=== PATIENT | male | born 1935 | race African-American/Black ===

== ENCOUNTER 2017-02-16 17:10 | Inpatient (IN) | payer MEDICARE ==
[~2017-02-16] VITALS: Ht 180.3 cm; Wt 61.2 kg
[2017-02-16 19:30] VITALS: BP 111/76
[2017-02-16] MEDS ORDERED: NORVASC10 MG PO (21:14)
[2017-02-16] MEDS ORDERED: XALATAN 0.0052.5 ML EACH EYE (21:17)
[2017-02-16] MEDS ORDERED: LINZESS145 MCG PO (21:18)
[2017-02-16] MEDS ORDERED: PRAVASTATIN SOD10 MG PO (21:18)
--- NOTE | 2017-02-17 03:31 | NUR ---
NEW ADMIT TO DOCTOR GUZMÁN FROM [facility] EMERGENCY DEPARTMENT TO [facility]. UPON ARRIVAL TO [facility] PATIENT WAS CALM. ADMITTED FOR INCREASED CONFUSION AND HALLUCINATIONS. PATIENT LIVES AT HOME. POLICE RESPONDED TO A 911 CALL THAT A NEIGHBOR MADE. FAMILY CONTACTED PCP. PCP INSTURCTED THEM TO TAKE HIM TO ER FOR TESTNG. AT WHICH POINT, RECOMMENDATION FOR INPATIENT PSYCH EVAL AND TREATMENT. PATIENT IS RESTING IN BED QUIETLY AT THIS TIME. ORIENTED TO UNIT. ENCOURAGE TO EXPRESS NEEDS.
[2017-02-17 04:43] VITALS: BP 111/76; BMI 18.8
[2017-02-17 07:09] LABS: BASOPHILS 0.5 % (0-2); EOSINOPHILS 2.7 % (0-7); HEMATOCRIT 32.9 % (42.0-54.0); HEMOGLOBIN 10.8 g/dL (13.5-17.5); IMMATURE GRANULOCYTES 0.2 % (0-5); LYMPHOCYTES 22.9 % (15-50); MCH 31.3 pg (26.0-34.0); MCHC 32.8 g/dL (31.0-37.0); MCV 95.4 fL (80.0-100.0); MEAN PLATELET VOLUME 8.8 fL (7.4-10.4); MONOCYTES 11.6 % (2-11); NEUTROPHILS 62.1 % (40-80); PLATELET COUNT 208 10x3/uL (130-400); RBC 3.45 10x6/uL (4.20-6.10); WBC 4.1 10x3/uL (4.8-10.8)
[2017-02-17 07:17] LABS: HEMOGLOBIN A1C 5.7 % (4.8-6.0)
[2017-02-17 07:31] LABS: ALBUMIN 3.4 g/dL (3.4-5.0); ANION GAP 13.2 mmol/L (8-16); BILIRUBIN - TOTAL 0.34 mg/dL (0.2-1.3); CALCIUM 8.9 mg/dL (8.5-10.1); CHOL - HDL RATIO 2.8 ratio (2.3-4.9); CREATININE - SERUM 3.1 mg/dL (0.6-1.3); LDL-HDL RATIO 1.7 ratio (1.5-3.5); POTASSIUM - SERUM 4.2 mmol/L (3.5-5.1); PROTEIN - SERUM 7.1 g/dL (6.4-8.2); THYROID STIMULATING HORMONE 2.89 uIU/mL (0.36-3.74)
--- NOTE | 2017-02-17 11:41 | NUR ---
ORIENTED TO PERSON AND PLACE.PROPELLS SELF IN WHEELCHAIR.COMPLIANT WITH MEDS AND STAFF.WILL CONTINUE WITH PLAN OF CARE,MONITOR FOR CHANGES AND SAFETY.
[2017-02-17 16:04] VITALS: BP 132/71
[2017-02-17 19:30] VITALS: BP 138/76
--- NOTE | 2017-02-17 23:08 | NUR ---
RECEIVED IN HALLWAY. WALKING ABOUT UNIT. CONFUSED. CALM AND COOPERATIVE WITH CARE AND ASSESSMENTS. NO SIGNS OF HALLUCIANTIONS. REDIRECT AND REORIENT NEEDED. ENCOURAGE TO EXPRESS NEEDS. RESTING IN BED EYES CLOSED AT THIS TIME. CONTINUE PLAN OF CARE
--- NOTE | 2017-02-18 05:02 | PSY ---
PATIENT NAME:RUSSELL SCHULZ MEDICAL RECORD: [id number] : 31 LOCATION:[facility] ADMISSION DATE: 02/16/17 ACCOUNT: [id number] PSYCHIATRIC EVALUATION DATE OF EVALUATION: 02/17/17 IDENTIFYING DATA: This is the first [facility] admission for this 81-year-old -[place] male from [place]. The patient is single. HISTORY OF PRESENT ILLNESS: This patient was admitted on transfer from [facility] in [place]. Available history indicates that the patient had been wandering outside of his home and was apparently hallucinating. Neighbors became concerned and notified law enforcement. The patient's family then contacted the patient's primary care physician, who directed them to have the patient evaluated at the local hospital and then transferred here. Relatively little is known about the patient's past medical history aside from the above details. The patient does continue to live at home and apparently still drives. Because of worsening confusion and psychosis, the patient has been admitted. PAST MEDICAL HISTORY: Positive for hypertension and hypercholesterolemia. CURRENT MEDICATIONS: Include Linzess 72.5 mcg daily, Pravachol 20 mg at bedtime, Xalatan eye drops, and Norvasc 10 mg daily. FAMILY HISTORY: Unknown. SOCIAL HISTORY: See above. Apparently, no substance abuse issues. The patient is single. He does have some family involved in his care. ALLERGIES: None listed. MENTAL STATUS: On interview, the patient is pleasant, but confused. Mood is for the most part euthymic, although at times slightly anxious. Affect is constricted. Speech tends to be tangential. Content of thought positive for recent psychotic symptoms. The patient apparently has been exhibiting auditory hallucinations. Sensorium: The patient is oriented to person, plus the fact that he is in a hospital in [place]. Not oriented correctly as to time. Remote, intermediate, and short-term recall all show deficits. DIAGNOSTIC IMPRESSION: AXIS I: Alzheimer dementia. AXIS II: No diagnosis. AXIS III: Hypertension, hypercholesterolemia. AXIS IV: Moderate. AXIS V: 36. PLAN: 1. The patient is admitted for further medical and psychiatric workup. 2. Diet and activities as tolerated. 3. We will coordinate with family regarding aftercare plans. TRANSINT:[id number] Voice Confirmation ID: [id number] DOCUMENT ID: [id number] SHASTA GUZMÁN III, MD at 0502 CC: [id number] DICTATION DATE: 02/17/17 0943 MANAGER HOUSEKEEPING: 02/17/17 1007 ADM IN [facility] [address] [place] [address]
[2017-02-18 07:42] LABS: ANION GAP 15.7 mmol/L (8-16); CALCIUM 8.8 mg/dL (8.5-10.1); CARBON DIOXIDE 22.9 mmol/L (21.0-32.0); CREATININE - SERUM 3.5 mg/dL (0.6-1.3); POTASSIUM - SERUM 4.6 mmol/L (3.5-5.1)
--- NOTE | 2017-02-18 13:38 | NUR ---
IS ORIENTED X 3.DENIES EVER SEEING OR TALKING WITH SITTER OR ANY PERSON.STATE'S "MY 'S SISTER IS LYING ABOUT ME BECAUSE SHE IS TRYING TO GET MY HOUSE".ALSO TALKS ABOUT HIS DYING IN SEPTEMBER AND HOW HE MISSES HER.CAN WALK BUT PROPELLS SELF IN WHEELCHAIR.IS COMPLIANT WITH STAFF AND MEDS.WILL CONTINUE WITH PLAN OF CARE,MONITOR FOR CHANGES AND SAFETY.
[2017-02-18 19:09] VITALS: BP 145/60
[2017-02-18 19:21] LABS: ERYTHROCYTE SEDIMENTATION RATE 18 mm/hr (0-20)
[2017-02-18 20:30] VITALS: BP 132/60
--- NOTE | 2017-02-18 22:22 | NUR ---
RECEIVED IN BEDROOM. RESTING IN BED WITH EYES CLOSED. RESPONDS TO VOICE. CONFUSED. CALM AND COOPERATIVE WITH CARE AND ASSESSMENTS. NO SIGNS OF HALLUCINATIONS. REDIRECT AND REORIENT NEEDED. RESTING IN BED WITH EYES CLOSED AT THIS TIME. CONTINUE PLAN OF CARE
--- NOTE | 2017-02-18 23:07 | NUR ---
RECEIVED IN BEDROOM. LAYING IN BED WITH EYES CLOSED. VERY CONFUSED. VISUAL HALLUCINATIONS. SEEING SOMETHING COMING OUT OF A/C UNIT. REFUSED PM MEDS. ATTEMPTED TO START IV BUT PATIENT REFUSED. STATING "DON'T DO THAT TONIGHT!" ATTEMPT TO REDIRECT BUT UNABLE. AGITATED WITH STAFF. REDIRECT AND REORIENT CONTINUES TO REST IN BED WITH EYES CLOSED. CONTINUE PLAN OF CARE
[2017-02-19 02:04] LABS: APPEARANCE CLEAR (CLEAR); BILIRUBIN NEGATIVE (NEGATIVE); COLOR YELLOW (YELLOW); CREATININE - URINE 98.2 mg/dL (30-125); GLUCOSE NEGATIVE (NEGATIVE); KETONE NEGATIVE (NEGATIVE); NITRITE NEGATIVE (NEGATIVE); PRO/CRE RATIO URINE 0.3 mg/g; PROTEIN NEGATIVE (NEGATIVE); PROTEIN - URINE 26.1 mg/dL (0.0-11.9); SPECIFIC GRAVITY 1.015 (1.005-1.020); UROBILINOGEN NORMAL (NORMAL)
--- NOTE | 2017-02-19 06:35 | NUR ---
IV STARTED IN LEFT FOREARM. X 1 ATTEMPT.
[2017-02-19 07:16] LABS: BASOPHILS 0.4 % (0-2); EOSINOPHILS 1.5 % (0-7); HEMATOCRIT 29.8 % (42.0-54.0); HEMOGLOBIN 9.9 g/dL (13.5-17.5); IMMATURE GRANULOCYTES 0.2 % (0-5); LYMPHOCYTES 20.1 % (15-50); MCH 31.7 pg (26.0-34.0); MCHC 33.2 g/dL (31.0-37.0); MCV 95.5 fL (80.0-100.0); MONOCYTES 9.2 % (2-11); NEUTROPHILS 68.6 % (40-80); PLATELET COUNT 224 10x3/uL (130-400); RBC 3.12 10x6/uL (4.20-6.10); RDW 13.3 % (11.5-14.5); WBC 4.7 10x3/uL (4.8-10.8)
[2017-02-19 07:41] LABS: ANION GAP 15.7 mmol/L (8-16); CALCIUM 8.5 mg/dL (8.5-10.1); CARBON DIOXIDE 22.8 mmol/L (21.0-32.0); CREATININE - SERUM 3.4 mg/dL (0.6-1.3); MAGNESIUM - SERUM 1.8 mg/dL (1.8-2.4); POTASSIUM - SERUM 4.5 mmol/L (3.5-5.1)
--- NOTE | 2017-02-19 10:00 | NUR ---
ORIENTED TO NAME AND PLACE. SELF PROPELS IN WHEELCHAIR. CALM AND COOPERATIVE WITH CARE AND ASSESSMENT. IV IN LEFT FOREARM INFUSING AT 125CC/HR. MEDICATION COMPLIANT. CONTINUE PLAN OF CARE AND MONITOR FOR SAFETY.
[2017-02-19 11:35] VITALS: BMI 18.8
[2017-02-19 12:18] VITALS: BP 150/62
[2017-02-19 14:52] VITALS: Ht 180.3 cm; Wt 61.2 kg
[2017-02-19 20:35] VITALS: BP 154/49
--- NOTE | 2017-02-19 21:11 | NUR ---
RECEIVED IN HALLWAY OUTSIDE OF NURSES STATION. WALKING ABOUT UNIT. CONFUSED. CALM AND COOPERATIVE WITH CARE AND ASSESSMENTS. STATED THAT HE WANTED IV OUT OF HIS ARM. REORIENTED FOR THE NEED OF THE IV. PATIENT BEGAN PULLING ON IV. PULLING TAPE OFF. DISCONNECTED IV LINE FROM PATIENT AND SALINE LOCKED. REDIRECT AND REOIENT NEEDED. CONTINUES TO WALK AROUND IN HIS ROOM AT THIS TIME. CONTINUE PLAN OF CARE
[2017-02-20 03:09] LABS: RAPID PLASMA REAGIN Non Reactive (Non Reactive)
[2017-02-20 06:14] LABS: FOLATE (FOLIC ACID) - SERUM 13.1 ng/mL (>3.0)
[2017-02-20 07:26] LABS: BASOPHILS 0.4 % (0-2); EOSINOPHILS 1.7 % (0-7); HEMATOCRIT 29.3 % (42.0-54.0); HEMOGLOBIN 9.6 g/dL (13.5-17.5); IMMATURE GRANULOCYTES 0.2 % (0-5); LYMPHOCYTES 14.7 % (15-50); MCH 31.5 pg (26.0-34.0); MCHC 32.8 g/dL (31.0-37.0); MCV 96.1 fL (80.0-100.0); MEAN PLATELET VOLUME 8.7 fL (7.4-10.4); MONOCYTES 8.8 % (2-11); NEUTROPHILS 74.2 % (40-80); PLATELET COUNT 197 10x3/uL (130-400); RBC 3.05 10x6/uL (4.20-6.10); RDW 13.3 % (11.5-14.5); WBC 4.8 10x3/uL (4.8-10.8)
[2017-02-20 07:46] LABS: ALBUMIN 3.1 g/dL (3.4-5.0); BILIRUBIN - TOTAL 0.4 mg/dL (0.2-1.3); CALCIUM 8.6 mg/dL (8.5-10.1); CARBON DIOXIDE 21.3 mmol/L (21.0-32.0); CREATININE - SERUM 3.2 mg/dL (0.6-1.3); POTASSIUM - SERUM 4.3 mmol/L (3.5-5.1); PROTEIN - SERUM 6.5 g/dL (6.4-8.2)
--- NOTE | 2017-02-20 10:17 | PN ---
PATIENT:RUSSELL SCHULZ MEDICAL RECORD: [id number] LOCATION:[facility] ADMISSION DATE: 02/16/17 PROGRESS NOTE DATE OF SERVICE: 02/19/2017 SUBJECTIVE: No new complaint. OBJECTIVE: The patient has been intermittent in his taking medications. However, he has not been combative and has been easily redirected. On exam, the patient remains confused. Mood is euthymic. Affect is very constricted. Speech is quite terse. Content of thought is negative for overt psychosis at the moment. Sensorium shows no change. ASSESSMENT: No change in diagnosis. PLAN: 1. Maintain current medications. 2. Continue supportive therapy. TRANSINT:[id number] Voice Confirmation ID: [id number] DOCUMENT ID: [id number] SHASTA GUZMÁN III, MD at 1017 CC: [id number] DICTATION DATE: 02/19/17 1358 LIVESTOCK YARD SUPERVISOR: 02/19/17 1423 ADM IN [place] [id number] [place] [address]
[2017-02-20 10:32] VITALS: BP 141/61
[2017-02-20 20:22] VITALS: BP 150/64
--- NOTE | 2017-02-20 22:08 | NUR ---
RECEIVED IN HALLWAY OUTSIDE OF HIS ROOM. CALM AND COOPERATIVE WITH CARE AND ASSESSMENTS. REDIRECT AND REORIENT NEEDED. D/C IV PER ORDER. RESTING IN BED EYES CLOSED AT THIS TIME. CONTINUE PLAN OF CARE
[2017-02-21 06:46] LABS: BASOPHILS 0.4 % (0-2); EOSINOPHILS 1.6 % (0-7); HEMOGLOBIN 9.3 g/dL (13.5-17.5); IMMATURE GRANULOCYTES 0.2 % (0-5); LYMPHOCYTES 16.7 % (15-50); MCH 31.8 pg (26.0-34.0); MCHC 33.2 g/dL (31.0-37.0); MCV 95.9 fL (80.0-100.0); MONOCYTES 8.6 % (2-11); NEUTROPHILS 72.5 % (40-80); PLATELET COUNT 206 10x3/uL (130-400); RBC 2.92 10x6/uL (4.20-6.10); RDW 13.3 % (11.5-14.5); WBC 5.1 10x3/uL (4.8-10.8)
[2017-02-21 07:11] LABS: ANION GAP 13.7 mmol/L (8-16); CALCIUM 8.4 mg/dL (8.5-10.1); CREATININE - SERUM 3.2 mg/dL (0.6-1.3); POTASSIUM - SERUM 4.7 mmol/L (3.5-5.1)
[2017-02-21 08:00] VITALS: BP 136/70
--- NOTE | 2017-02-21 08:00 | NUR ---
Rec'd pt in d/r for b'fast, alert, some confusion noted, pleasant mood, cooperative, calm, med compliant. No s/s adverse reactions to meds, participates in group when cued. Propels self in w/c, assessed for safety concerns with none found. Cont POC including meds and group therapy.
[2017-02-21 09:17] LABS: SPE - A/G RATIO 1.3 (0.7-1.7); SPE - ALBUMIN 3.6 g/dL (2.9-4.4); SPE - ALPHA-1 GLOBULIN 0.1 g/dL (0.0-0.4); SPE - ALPHA-2 GLOBULIN 0.5 g/dL (0.4-1.0); SPE - BETA GLOBULIN 0.9 g/dL (0.7-1.3); SPE - GAMMA GLOBULIN 1.2 g/dL (0.4-1.8); SPE - M-SPIKE Not Observed g/dL (Not Observed); SPE - TOTAL PROTEIN 6.4 g/dL (6.0-8.5)
[2017-02-21 09:17] LABS: UPE RAND - ALBUMIN 19.9 % (()); UPE RAND - ALPHA 1 GLOBULIN 8.5 % (()); UPE RAND - ALPHA 2 GLOBULIN 17.6 % (()); UPE RAND - BETA GLOBULIN 33.6 % (()); UPE RAND - GAMMA GLOBULIN 20.3 % (())
--- NOTE | 2017-02-21 09:31 | PN ---
PATIENT:RUSSELL SCHULZ MEDICAL RECORD: [id number] LOCATION:[facility] ADMISSION DATE: 02/16/17 PROGRESS NOTE DATE OF SERVICE: 02/20/2017 SUBJECTIVE: No new complaint. OBJECTIVE: The patient remains pleasant and cooperative. On exam, mood is euthymic. Affect is bland. Speech is rather terse. Content of thought is negative for overt psychosis. Sensorium shows no change. ASSESSMENT: No change in diagnosis. PLAN: 1. Case management is working with family regarding placement. 2. Continue all current medications. 3. Continue supportive therapy. TRANSINT:[id number] Voice Confirmation ID: [id number] DOCUMENT ID: [id number] SHASTA GUZMÁN III, MD at 0931 CC: [id number] DICTATION DATE: 02/20/17 1212 SLICE CUTTING MACHINE OPERATOR HELPER: 02/20/17 1234 ADM IN [place] [id number] [place] [address]
[2017-02-21 20:05] VITALS: BP 153/66
--- NOTE | 2017-02-21 21:39 | NUR ---
RECEIVED IN HALLWAY. WALKING ABOUT BEFORE BEDTIME. CALM AND COOPERATIVE WITH CARE AND ASSESSMENTS. REDIRECT AND REORIENT NEEDED. ENCOURAGE TO EXPRESS NEEDS. RESTING IN BED EYES CLOSED AT THIS TIME. CONTINUE PLAN OF CARE
--- NOTE | 2017-02-22 08:07 | PN ---
PATIENT:RUSSELL SCHULZ MEDICAL RECORD: [id number] LOCATION:[facility] ADMISSION DATE: 02/16/17 PROGRESS NOTE DATE OF SERVICE: 02/21/2017 SUBJECTIVE: No new complaint. OBJECTIVE: The patient has been pleasant and cooperative. He remains quite confused. He is under good behavioral control. On exam, mood is euthymic. Affect is shallow, but bland. Speech very terse. Content of thought is negative for overt psychosis. Sensorium is unchanged. ASSESSMENT: No change in diagnosis. PLAN: 1. We will get neuropsychological testing per Dr. Rodriguez. 2. Continue current medications and supportive therapy. TRANSINT:[id number] Voice Confirmation ID: [id number] DOCUMENT ID: [id number] SHASTA GUZMÁN III, MD at 0807 CC: [id number] DICTATION DATE: 02/21/17 1155 RADIATION THERAPY TECHNOLOGIST: 02/21/17 1236 ADM IN [facility] [address] [place] [address]
--- NOTE | 2017-02-22 11:00 | NUR ---
PATIENT'S ENDY BERNARDO CALLED AND ASKED ABOUT HOW HE IS DOING. LET HER KNOW HE IS DOING WELL EXCEPT NOT WALKING, HE IS USING A W/C. SHE SAID "YOU TELL HIM THAT [place] SAID HE BETTER GET UP AND WALK OR SHE IS GOING BACK TO [place]" DID RELAY THIS MESSAGE TO PATIENT. PATIENT'S RESPONSE "OH SHE DID?" PATIENT CONTINUES TO USE W/C.
[2017-02-22 11:59] VITALS: BP 148/80
--- NOTE | 2017-02-22 20:13 | NUR ---
RECEIVED IN DAYROOM. SITTING IN WHEELCHAIR WITH PEERS AT SIDE. CALM AND COOPERATIVE [facility] CARE AND ASSESSMENT. ENCOURAGE TO EXPRESS NEEDS. PATIENT IS RESTING IN RECLINER WITH EYES CLOSED AT THIS TIME. CONTINUE PLAN OF CARE.
[2017-02-22 22:00] VITALS: BP 115/91
--- NOTE | 2017-02-23 08:08 | NUR ---
RECEIVED IN BEDROOM. SITTING ON BED WITH EYES OPEN. CONFUSED. CALM AND COOPERATIVE WITH CARE AND ASSESSMENTS. REDIRECT AND REORIENT NEEDED. ENCOURAGE TO EXPRESS NEEDS. SITTING QUIETLY IN A WHEELCHAIR IN HIS ROOM AT THIS TIME. CONTINUE PLAN OF CARE
--- NOTE | 2017-02-23 10:07 | PN ---
PATIENT:RUSSELL SCHULZ MEDICAL RECORD: [id number] LOCATION:[facility] ADMISSION DATE: 02/16/17 PROGRESS NOTE DATE OF SERVICE: 02/22/2017 SUBJECTIVE: No new complaint. OBJECTIVE: The patient is doing quite well. He is tolerating medications. He adapts well to the inpatient environment. On exam, mood is for the most part euthymic. Affect is rather bland and constricted. Speech is terse. Content of thought shows no evidence of psychosis. Sensorium shows no change. ASSESSMENT: No change in diagnosis. PLAN: 1. Maintain current medications. 2. Continue supportive therapy. TRANSINT:[id number] Voice Confirmation ID: [id number] DOCUMENT ID: [id number] SHASTA GUZMÁN III, MD at 1007 CC: [id number] DICTATION DATE: 02/22/17 1151 SENIOR TELECOMMUNICATIONS ENGINEER: 02/22/17 1211 ADM IN [place] [id number] [place] [id number]
[2017-02-23 10:47] VITALS: BP 143/58
[2017-02-23] MEDS ORDERED: TERAZOSIN HCL2 MG PO (10:51)
[2017-02-23] MEDS ORDERED: ALPHAGAN 0.2%5 ML EACH EYE (10:52)
[2017-02-23] MEDS ORDERED: TIMOPTIC XE 0.5%5 ML EACH EYE (10:52)
[2017-02-23] MEDS ORDERED: ARICEPT5 MG PO (11:07)
--- NOTE | 2017-02-23 14:05 | NUR ---
PATIENT DISCHARGING TODAY, D/C ORDER, MEDS AND H&P FAXED TO [facility].
--- NOTE | 2017-02-23 16:04 | NUR ---
CALLED PRESCRIPTIONS TO [facility] IN [place], DID GO OVER APPOINTMENTS AND MEDS WITH PATIENT AND HIS NIECE, PATIENT IS D/C'D FROM [facility], ASSISTED PATIENT TO VEHICLE.
--- NOTE | 2017-02-26 09:39 | DS ---
PATIENT:RUSSELL SCHULZ :31 MEDICAL RECORD: [id number] DISCHARGE SUMMARY ADMISSION DATE: 02/16/17 DISCHARGE DATE: 02/23/17 DATE OF ADMISSION: 02/16/2017. DATE OF DISCHARGE: 02/23/2017. HISTORY OF PRESENT ILLNESS: An 81-year-old -Mongolian male, who is a . The patient is from [place] and he was assessed at [facility] there and transferred here. The patient had been wandering outside of his home, apparently hallucinating. The patient's family called law enforcement and had him evaluated and subsequently transferred here. For further details, please see previously dictated history. COURSE IN THE HOSPITAL: The patient was assessed by Dr. Ramos. Dr. Ramos noted significantly impaired kidney function, glaucoma, hyperlipidemia, hypertension, and constipation. The patient was also assessed by Dr. Nicole with nephrology. He was hydrated and treated successfully with improvement in renal function. From a medication standpoint, the patient was treated very conservatively. He did not exhibit any problematic behavior and therefore did not require any type of sedating medication. He did undergo neuropsychological testing and scored a 20/30 on the [facility] Mental Status exam, which indicates a significant level of dementia. This will be communicated to his family. At the time of discharge, he is being started on Aricept. 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 AXIS II: No diagnosis. AXIS III: Recent dehydration -- resolved, hypertension, hypercholesterolemia. AXIS IV: Moderate. AXIS V: 40. PLAN: 1. The patient is discharged on current medications. 2. Follow up through primary care physician. The patient will also be assessed by home health. 3. Diet and activities as tolerated. TRANSINT:[id number] Voice Confirmation ID: [id number] DOCUMENT ID: [id number] SHASTA GUZMÁN III, MD at 0939 CC: [id number] DICTATION DATE: 02/23/17 1104 AERODYNAMICS TEACHER: 02/23/17 1144 DIS IN 02/23/17 [facility] [address] [place] [id number]
== END 2017-02-23 16:05 | disposition home health service (06) | DRG 57 ==
LOC: D.PSYCH 17:10
PROVIDERS: Family Medicine; Internal Medicine Nephrology; ADMIT Psychiatry & Neurology Psychiatry
DX: G30.1 Alzheimer's disease with late onset (principal); F02.81 Dementia in other diseases classified elsewhere, unspecified severity, with behavioral disturbance; N17.9 Acute kidney failure, unspecified; I12.9 Hypertensive chronic kidney disease with stage 1 through stage 4 chronic kidney disease, or unspecified chronic kidney disease; N18.9 Chronic kidney disease, unspecified; Z87.891 Personal history of nicotine dependence; E78.00 Pure hypercholesterolemia, unspecified; E78.5 Hyperlipidemia, unspecified; K59.09 Other constipation; H40.9 Unspecified glaucoma; D63.1 Anemia in chronic kidney disease; Z74.09 Other reduced mobility

== ENCOUNTER 2018-09-10 08:15 | Outpatient (CLI) | payer MEDICARE ==
[~2018-09-10] VITALS: Ht 180.3 cm; Wt 69.4 kg
[~2018-09-10 08:15] MED LIST: ALPHAGAN 0.2%5 ML EACH EYE; ARICEPT5 MG PO; LINZESS145 MCG PO; NORVASC10 MG PO; PRAVASTATIN SOD10 MG PO; TERAZOSIN HCL2 MG PO; TIMOPTIC XE 0.5%5 ML EACH EYE; XALATAN 0.0052.5 ML EACH EYE
[2018-09-10 08:48] LABS: HEMATOCRIT 27.2 % (42.0-54.0); HEMOGLOBIN 8.8 g/dL (13.5-17.5); MCH 31.3 pg (26.0-34.0); MCHC 32.4 g/dL (31.0-37.0); MCV 96.8 fL (80.0-100.0); MEAN PLATELET VOLUME 8.1 fL (7.4-10.4); NEUTROPHILS 64.3 % (40-80); PLATELET COUNT 241 10x3/uL (130-400); RBC 2.81 10x6/uL (4.20-6.10); RDW 13.8 % (11.5-14.5); WBC 4.5 10x3/uL (4.8-10.8)
[2018-09-10 08:58] LABS: ANION GAP 16.4 mmol/L (8-16); CALCIUM 8.3 mg/dL (8.5-10.1); CARBON DIOXIDE 20.8 mmol/L (21.0-32.0); CREATININE - SERUM 5.1 mg/dL (0.6-1.3); POTASSIUM - SERUM 5.2 mmol/L (3.5-5.1)
[2018-09-10 09:21] LABS: INR 1.14 (0.85-1.17); PROTIME 14.1 SECONDS (11.6-15.0)
[2018-09-10] MEDS ORDERED: ATIVAN0.5 MG PO (09:29)
[2018-09-10 09:40] VITALS: BP 164/74; Ht 180.3 cm; Wt 69.4 kg
--- NOTE | 2018-09-10 11:56 | NUR ---
DR. MOY CANCELLED SURGERY, PT RESCHEDULED.
== END 2018-09-10 11:57 | disposition home or self-care (01) ==
LOC: D.OPS 08:15 → EDSTATUS 10:00 → D.OPS 11:57
PROVIDERS: Surgery; ATTEND Internal Medicine Nephrology
DX: N18.4 Chronic kidney disease, stage 4 (severe) (principal); I63.9 Cerebral infarction, unspecified

== ENCOUNTER 2018-09-23 19:55 | Inpatient (IN) | payer MEDICARE, OTHER ==
[~2018-09-23 19:55] MED LIST changes: +ATIVAN0.5 MG PO
--- NOTE | 2018-09-23 19:59 | NUR ---
PT TRANSFERRED FROM [facility] IN [place] FOR RENAL FAILURE AND UTI. PT IS ALERT BUT NOT ORIENTED TO PLACE OR TIME. PT WILL FOLLOW COMMANDS. RESP EVEN NON LABORED.
[2018-09-23 20:58] LABS: BASOPHILS 0.1 % (0-2); EOSINOPHILS 0.1 % (0-7); HEMOGLOBIN 8.8 g/dL (13.5-17.5); IMMATURE GRANULOCYTES 0.4 % (0-5); LYMPHOCYTES 7.3 % (15-50); MCH 30.9 pg (26.0-34.0); MCHC 32.6 g/dL (31.0-37.0); MCV 94.7 fL (80.0-100.0); MEAN PLATELET VOLUME 8.8 fL (7.4-10.4); MONOCYTES 19.1 % (2-11); PLATELET COUNT 204 10x3/uL (130-400); RBC 2.85 10x6/uL (4.20-6.10); RDW 13.7 % (11.5-14.5); WBC 13.9 10x3/uL (4.8-10.8)
[2018-09-23 21:00] VITALS: BP 157/62
[2018-09-23 22:06] LABS: % SATURATION 5 % (15-55); IRON 10 ug/dl (35-150); TOTAL IRON BIND CAPACITY 195 ug/dl (260-445); UNSAT IRON BIND CAPACITY 185 ug/dl (150-375)
[2018-09-23 22:12] LABS: ALBUMIN 3.3 g/dL (3.4-5.0); ALKALINE PHOSPHATASE 60 U/L (46-116); ALT (SGPT) 15 U/L (10-68); BILIRUBIN - TOTAL 0.57 mg/dL (0.2-1.3); CALC OSMOLALITY 293 mosm/kg (275-300); CALCIUM 8.8 mg/dL (8.5-10.1); CARBON DIOXIDE 19.4 mmol/L (21.0-32.0); CHLORIDE - SERUM 108 mmol/L (98-107); CREATININE - SERUM 5.9 mg/dL (0.6-1.3); GLUCOSE 60 mg/dL (74-106); POTASSIUM - SERUM 4.4 mmol/L (3.5-5.1); PROTEIN - SERUM 7.7 g/dL (6.4-8.2); SODIUM 141 mmol/L (136-145); UREA NITROGEN 55 mg/dL (7-18); eGFR NON AFRICAN AMERICAN 10 mL/min (90-120)
[2018-09-23 22:22] LABS: FERRITIN 237 ng/mL (3-244); LDH 234 U/L (85-227)
[2018-09-23 22:26] LABS: CREATINE KINASE 261 UL (21-232)
[2018-09-23 22:34] LABS: CKMB 2.9 U/L (0.0-3.6)
--- NOTE | 2018-09-23 23:06 | NUR ---
ELIAS ZARATE APN NOTIFIED OF LACTIC ACID OF 2.7. NO NEW ORDER FOR BOLUS AND SAID MAKE SURE THAT THERE IS A U/A WITH CULTURE IN PROGRESS. IF NOT GET ONE. ALSO, CONT FLUID ORDERS.
[2018-09-24 00:09] LABS: APPEARANCE HAZY (CLEAR); BILIRUBIN NEGATIVE (NEGATIVE); COLOR YELLOW (YELLOW); GLUCOSE NEGATIVE (NEGATIVE); KETONE NEGATIVE (NEGATIVE); NITRITE POSITIVE (NEGATIVE); PH 5.5 (5.0-6.0); PROTEIN 1+ mg/dL (NEGATIVE); UROBILINOGEN NORMAL (NORMAL)
[2018-09-24 00:17] LABS: BACTERIA MODERATE /hpf (NONE SEEN); EPITHELIAL CELLS OCC /hpf (0-5); RED CELLS - URINE 0-5 /hpf (0-5); WHITE CELLS - URINE 25-50 /hpf (0-5)
[2018-09-24 00:18] LABS: AMORPHOUS SEDIMENT <1+ /lpf (NONE SEEN); HYALINE CAST RARE /lpf (NONE SEEN)
[2018-09-24 00:46] VITALS: BP 139/61; BMI 23.7
--- NOTE | 2018-09-24 00:56 | NUR ---
RECIEVED REPORT FROM ULICES ERICKSON IN ER. ARRIVED TO FLOOR ON STRETCHER. TRANSFERED TO BED BY 3 STAFF. VERY LETHARGIC AND CONFUSED. DOES NOT ANSWER QUESTIONS APPROPERATLY. IV TO RIGHT AC WITH DSG INTACT AND SL.. UNABLE TO PUT IN GOWN D/T PT SWATTING AT STAFF WHEN ATTEMPTING TO TAKE SHIRT OFF. KEEPS HIS EYES CLOSED MOST OF THE TIME. NO S/S OF DISTRESS OBSERVED. UNABLE TO VERIFY MEDICATIONS AND VERY POOR HISTORIAN. ER REPORTED HE CAME FROM HOME. WILL PASS ON TO ONCOMMING TO CALL AND SEE IF MEDICATIONS CAN BE UPDATED BY BREWERY WORKER.
[2018-09-24 04:00] VITALS: BP 131/61
[2018-09-24 06:35] LABS: BASOPHILS 0.2 % (0-2); EOSINOPHILS 0.1 % (0-7); HEMATOCRIT 25.7 % (42.0-54.0); HEMOGLOBIN 8.3 g/dL (13.5-17.5); IMMATURE GRANULOCYTES 0.3 % (0-5); MCH 30.5 pg (26.0-34.0); MCHC 32.3 g/dL (31.0-37.0); MCV 94.5 fL (80.0-100.0); MEAN PLATELET VOLUME 9.2 fL (7.4-10.4); MONOCYTES 13.9 % (2-11); NEUTROPHILS 78.5 % (40-80); PLATELET COUNT 213 10x3/uL (130-400); RBC 2.72 10x6/uL (4.20-6.10); RDW 13.8 % (11.5-14.5); WBC 11.6 10x3/uL (4.8-10.8)
[2018-09-24 07:05] LABS: ANION GAP 18.4 mmol/L (8-16); CALCIUM 8.6 mg/dL (8.5-10.1); CARBON DIOXIDE 19.7 mmol/L (21.0-32.0); CREATININE - SERUM 5.5 mg/dL (0.6-1.3); MAGNESIUM - SERUM 2.2 mg/dL (1.8-2.4); PHOSPHOROUS 4.2 mg/dL (2.5-4.9)
[2018-09-24 07:20] LABS: POTASSIUM - SERUM 5.1 mmol/L (3.5-5.1)
[2018-09-24 09:56] VITALS: BP 123/54
[2018-09-24 10:15] LABS: PATH REVIEW PERIPHERAL SMEAR REVIEWED
[2018-09-24 12:10] VITALS: BP 120/56
[2018-09-24 13:43] VITALS: BMI 23.7
--- NOTE | 2018-09-24 15:00 | NUR ---
ALERT AND ORIENTED TO SELF. SPOUSE LEFT ROOM. BEGINS TRYING TO CLIMB OUT OF BED. SITTER AT BEDSIDE. NOTIFY DIFFICULTY KEEPING PATIENT IN BED. CONTINUE PLAN OF CARE AND SAFETY PRECAUTIONS.
--- NOTE | 2018-09-24 15:35 | NUR ---
I have reviewed this patient and I concur with the Shift Assessment completed by the Licensed Practical Nurse today this shift.
--- NOTE | 2018-09-24 19:27 | NUR ---
ASSESSMENT COMPLETE, PT IN BED RESTING, RESPERATIONS EVEN AND NON LABORED ON RA. IV TO LEFT ARM WITH NS INFUSING AT 100 CC/HR, IV SITE CLEAN AND DRY. BED LOW, CL IN REACH. BED ALARM IN USE FOR PTS SAFETY.
[2018-09-24 20:00] VITALS: BP 128/54
--- NOTE | 2018-09-24 20:51 | NUR ---
HS MEDS GIVEN WITH FRESH ICE WATER, PT DENIES PAIN OR NEEDS. BED LOW, CL IN REACH, SR UP X3, ALCIRA JACK IN USE.
[2018-09-25] VITALS: BP 142/53
--- NOTE | 2018-09-25 03:04 | NUR ---
I have reviewed this patient and I concur with the Shift Assessment completed by the Licensed Practical Nurse today this shift.
[2018-09-25 04:00] VITALS: BP 141/50
--- NOTE | 2018-09-25 06:02 | NUR ---
PT ASKING FOR , SAW BARREL COATER PRINCE ACROSS THE GALLARDO AND THOUGHT IT WAS HIS . EXPLAINED THAT PRINCE WAS A BARREL COATER THAT WORKED HERE IN THE HOSPITAL, BUT I WILL SEE IF I CAN CALL HIS FOR HIM.
[2018-09-25 08:33] VITALS: BP 134/69
--- NOTE | 2018-09-25 09:42 | NUR ---
AM MEDS GIVEN AT THIS TIME. IVPB ROCEPHIN HUNG AT THIS TIME VIA LT AC. PT A/O X2, RESP EVEN AND NONLABORED ON RA. REPOSITIONED PT IN THE BED. SOCIAL SERVICES MANAGER AT BEDSIDE, PT DENIES ANY NEEDS AT THIS TIME. CALL LIGHT IN REACH, NA NAD NOTED, WILL CONTINUE PLAN OF CARE.
--- NOTE | 2018-09-25 11:30 | NUR ---
ADVERTISING SALES EXECUTIVE HELPED PT IN THE SHOWER, COMPLETE LINEN CHANGE ALSO PROVIDED.
[2018-09-25 12:55] LABS: ANION GAP 19.6 mmol/L (8-16); CALCIUM 8.5 mg/dL (8.5-10.1); CARBON DIOXIDE 17.9 mmol/L (21.0-32.0); CREATININE - SERUM 4.9 mg/dL (0.6-1.3); POTASSIUM - SERUM 4.5 mmol/L (3.5-5.1)
[2018-09-25 15:46] VITALS: BP 138/55
[2018-09-25 16:11] LABS: FOLATE (FOLIC ACID) - SERUM 13.3 ng/mL (>3.0)
--- NOTE | 2018-09-25 19:38 | NUR ---
RESUMING PATIENT CARE. PATIENT IS ALERT AND PLEASANTLY CONFUSED. HE IS RESTING COMFORTABLY IN BED. RESPIRATIONS ARE EVEN AND UNLABORED. NO S/S OF DISTRESS. NO C/O PAIN. CALL LIGHT WITHIN REACH. WILL CPOC.
[2018-09-25 20:00] VITALS: BP 143/64
[2018-09-26] VITALS: BP 128/59
[2018-09-26 04:21] LABS: BASOPHILS 0.2 % (0-2); EOSINOPHILS 2.5 % (0-7); HEMATOCRIT 26.9 % (42.0-54.0); HEMOGLOBIN 8.9 g/dL (13.5-17.5); IMMATURE GRANULOCYTES 0.1 % (0-5); LYMPHOCYTES 15.9 % (15-50); MCH 31.1 pg (26.0-34.0); MCHC 33.1 g/dL (31.0-37.0); MCV 94.1 fL (80.0-100.0); MEAN PLATELET VOLUME 8.7 fL (7.4-10.4); MONOCYTES 14.1 % (2-11); NEUTROPHILS 67.2 % (40-80); PLATELET COUNT 254 10x3/uL (130-400); RBC 2.86 10x6/uL (4.20-6.10); RDW 13.7 % (11.5-14.5); WBC 9.3 10x3/uL (4.8-10.8)
[2018-09-26 04:46] LABS: ANION GAP 17.1 mmol/L (8-16); CALCIUM 8.5 mg/dL (8.5-10.1); CARBON DIOXIDE 20.3 mmol/L (21.0-32.0); CREATININE - SERUM 4.8 mg/dL (0.6-1.3); POTASSIUM - SERUM 4.4 mmol/L (3.5-5.1)
[2018-09-26 07:04] VITALS: BP 134/43
[2018-09-26 08:13] VITALS: BP 141/61
--- NOTE | 2018-09-26 08:45 | NUR ---
IV RESTARTED TO LEFT AC WITH 22 GAUGE CATH X 2 STICKS AND FLUSHED WITH NS. LINE IS PATENT.
--- NOTE | 2018-09-26 09:35 | NUR ---
HAS GOTTEN UP OOB AND PULLED OUT IV. BED ALARM ON. STUDENT AT BS ASSISTING WITH ADLS. WILL CONT. TO MONITOR.
[2018-09-26 12:21] VITALS: BP 123/63
--- NOTE | 2018-09-26 14:17 | NUR ---
NEW IV RESTARTED TO RIGHT AC WITH 22 GAUGE CATH X 2 STICKS AND FLUSHED WITH NS. LINE IS PATENT.
[2018-09-26 16:47] VITALS: BP 140/69
[2018-09-26 20:00] VITALS: BP 145/71; BP 156/59
--- NOTE | 2018-09-26 20:00 | NUR ---
RESUMING PATIENT CARE. PATIENT IS ALERT AND PLESANTLY CONFUSED. RESPIRATIONS ARE EVEN AND UNLABORED. PATIENT IS NOT BEING COOPERATIVE PRESENTLY. PATIENT CONTINUES TO BED OUT OF BED AND IS NOT FOLLOWING REDIRECTION. PATIENT IS CURRENTING SITTING IN A RECLINER AT THE NURSES STATION. CALL LIGHT WITHIN REACH. WILL CPOC.
[2018-09-27] VITALS: BP 130/59
[2018-09-27 05:00] VITALS: BP 133/60
--- NOTE | 2018-09-27 07:45 | NUR ---
PT RESTING IN BED EYES CLOSED. BED ALARM ON AND WORKING. NO SIGN OF DISTRESS. RESPIRATIONS EVEN AND UNLABORED. BED AT LOWEST POSITION. CALL LIGHT WITHIN REACH. WILL CONTIUE TO MONITOR.
--- NOTE | 2018-09-27 07:47 | NUR ---
ASSESSMENT DONE. DENIES NEEDS.
[2018-09-27 08:28] LABS: BASOPHILS 0.3 % (0-2); EOSINOPHILS 2.9 % (0-7); HEMATOCRIT 27.8 % (42.0-54.0); IMMATURE GRANULOCYTES 0.3 % (0-5); MCH 30.4 pg (26.0-34.0); MCHC 32.4 g/dL (31.0-37.0); MCV 93.9 fL (80.0-100.0); MEAN PLATELET VOLUME 8.6 fL (7.4-10.4); MONOCYTES 8.1 % (2-11); NEUTROPHILS 75.4 % (40-80); PLATELET COUNT 258 10x3/uL (130-400); RBC 2.96 10x6/uL (4.20-6.10); RDW 13.5 % (11.5-14.5); WBC 7.7 10x3/uL (4.8-10.8)
[2018-09-27 08:30] LABS: ANION GAP 17.4 mmol/L (8-16); CALCIUM 8.4 mg/dL (8.5-10.1); CARBON DIOXIDE 20.4 mmol/L (21.0-32.0); CREATININE - SERUM 5.2 mg/dL (0.6-1.3); POTASSIUM - SERUM 4.8 mmol/L (3.5-5.1)
--- NOTE | 2018-09-27 08:54 | NUR ---
WAS CALLED FOR TELEPHONE CONSENT FOR AV FISTULA. JENIFER MOY'S NURSE AND THIS CRUISE CONSULTANT RECEIVED TELEPHONE CONSENT. PT WAS PREOP BY KASSIE ERICKSON. TO OR.
--- NOTE | 2018-09-27 09:00 | NUR ---
PREOP MEDS SENT WITH PT TO OR.
[2018-09-27 09:55] VITALS: BP 144/58
[2018-09-27 11:23] VITALS: BP 127/56
--- NOTE | 2018-09-27 12:15 | NUR ---
PT IS VERY AGGITATED, COMBATIVE AND UNCOOPERATIVE. REFUSES PO MEDS. CONTACTED AND ENCOURAGED HER TO COME SIT WITH HIM. SAID SHE WOULD TRY TO FIND SOMEONE TO BRING HER HERE. PT IS NOW A ONE ON ONE PT AND WILL CONTINUE TO HAVE A NURSE AT BEDSIDE.
[2018-09-27 12:49] VITALS: BP 127/56
--- NOTE | 2018-09-27 13:30 | NUR ---
RING, YELLOW IN COLOR AT BEDSIDE IN CUP WITH PT MASTER SONAR TECHNICIAN IT.
--- NOTE | 2018-09-27 14:23 | NUR ---
Nutrition follow-up: Diet: Renal PO intake ~60% of meals Pt s/p dialysis access surgery; now confused, combative One on one nursing now RDN following.
--- NOTE | 2018-09-27 14:30 | NUR ---
PT HAS TRIED SEVERAL TIMES TODAY TO GET OUT OF BED AND WAS ENCOURAGED TO LAY BACK DOWN. PT IS NOW SITTING UP IN BED. SEEMINGLY CALM. NO DISTRESS NOTED. RESPIRATIONS EVEN AND UNLABORED.
--- NOTE | 2018-09-27 14:37 | NUR ---
I have reviewed this patient and I concur with the Shift Assessment completed by the Licensed Practical Nurse today this shift.
--- NOTE | 2018-09-27 16:15 | NUR ---
SISTER CALLED FOR AN UPDATE ON PT STATUS. WAS NOTIFIED OF HIS BEHAVIOR TODAY. STATED THE WOULD NOT BE COMING TO SIT WITH HIM TODAY BUT THAT SHE PLANS TO BE HERE TOMORROW.
[2018-09-27 20:00] VITALS: BP 158/65
--- NOTE | 2018-09-27 21:11 | NUR ---
INITIAL ROUNDS COMPLETED AT 1900 HRS. PT CONFUSED AND BELLEGERENT. CRAWLING OUT OF THE BED. ASSISTED BACK TO BED WITH STAFF X2. ASSESSMENT COMPLETED AT 1955HRS. VSS. PT CONTINUES BE VERY CONFUSED AND BELLEGERENT. NO IV. DRESSING TO R WRIST/FA CLEAN, DRY AND INTACT. AREA SLIGHTLY SWOLLEN. PT REFUSES TO ELEVATE R ARM. LUNGS ESEENTIALLY CTA. GAIT UNSTEADY. PT CONTINUES TO CRAWL OUT OF BED FREQUENTLY. PM MEDS GIVEN OVER A 20 MINUTE PERIOD. PT SWALLOWED WITHOUT DIFFICULTY. PT OUT OF BED X 5 SINCE 2099. ASSISTED TO BR X1. VOIDED SMALL AMOUNT OF URINE. ASSISTED BACK TO BED. PT YELLING AT STAFF THAT THE WEBSTER ARE MOVING. PT BECAME MORE AGITATED WHEN INFORMED THAT THEY WERE NOT. SR UP X2, CALL LIGHT WITHIN REACH AND BED ALARM ON.
--- NOTE | 2018-09-27 21:57 | NUR ---
PT CRAWLING OUT OF BED. ORIENTED TO PERSON ONLY. ATTEMPTED TO REORIENT TO PLACE, TIME AND SITUATION . PT BECAME MORE BELLIGERENT WITH REORIENTATION. STAFF X2 TO ASSIST PT BACK TO BED. SR UP X2, CALL LIGHT WITHIN REACH AND BED ALARM ON.
--- NOTE | 2018-09-27 23:33 | NUR ---
PT BECOMING MORE AND MORE AGITATED. COMBATIVE TOWARDS STAFF. GEODON 10MG IV TO R DORSALIS GLUTEAL GIVEN. PT THEN BECOMING MORE AND MORE AGITATED AND GETTING OUT OF BED. GAIT VERY UNSTEADY ON FEET. ATTEMPTED TO REORIENT NUMEROUS TIMES WITHOUT SUCCESS. SECURITY AT BEDSIDE.
--- NOTE | 2018-09-27 23:38 | NUR ---
PT UNABLE TO MAINTAIN SAFETY. CONTINUES TO BE AGITATED AND ATTEMPTING TO GET OUT OF BED. [facility] OFFICE ASSISTANT NOTIFIED NEW ORDERS RECEIVED AND NOTED.
[2018-09-28] VITALS: BP 144/60
--- NOTE | 2018-09-28 00:35 | NUR ---
ENCLOSURE BED UNAVAILABLE AT THIS TIME. PT BEING MONITORED VERY CLOSELY. SR UP X3, CALL LIGHT WITHIN REACH AND BED ALARM ON USE.
--- NOTE | 2018-09-28 00:43 | NUR ---
PT PICKING AT BLANKETS. CONTINUES TO ATTEMPT TO GET OUT OF BED. ORIEINTED TO PERSON ONLY. PT HAVING VISUAL HALLUCINATIONS EXHIBITED BY STATING THERE IS A PACK OF DOGS ROAMING THE HALLS AND ARE TRYING TO GET THE SHOES PILED IN THE CORNER. GAIT VERY UNSTEADY. SR UP X3, CALL LIGHT WITHIN REACH, BED ALARM ON AND DOOR OPENED.
--- NOTE | 2018-09-28 01:40 | NUR ---
ATIVAN 0.5MG PO GIVEN FOR AGITATION. SR UP X3,CALL LIGHT WITHIN REACH AND BED ALARM ON.
--- NOTE | 2018-09-28 02:47 | NUR ---
PT CONFUSED, AGITATED AND ATTEMPTNG TO GET OUT OF BED. UNABLE TO REORIENT. STAFF X2 IN ROOM AT THIS TIME. ENCLOSURE BED STILL UNAVAILABLE.
[2018-09-28 04:00] VITALS: BP 101/56
[2018-09-28 04:19] LABS: BASOPHILS 0.4 % (0-2); EOSINOPHILS 2.1 % (0-7); HEMATOCRIT 25.2 % (42.0-54.0); HEMOGLOBIN 8.1 g/dL (13.5-17.5); IMMATURE GRANULOCYTES 0.2 % (0-5); LYMPHOCYTES 9.8 % (15-50); MCH 30.5 pg (26.0-34.0); MCHC 32.1 g/dL (31.0-37.0); MCV 94.7 fL (80.0-100.0); MEAN PLATELET VOLUME 8.9 fL (7.4-10.4); NEUTROPHILS 70.5 % (40-80); PLATELET COUNT 247 10x3/uL (130-400); RBC 2.66 10x6/uL (4.20-6.10); RDW 13.9 % (11.5-14.5); WBC 8.2 10x3/uL (4.8-10.8)
--- NOTE | 2018-09-28 04:23 | NUR ---
PT CONTINUES TO BE CONFUSED AND TRYING TO GET OUT OF BED. GAIT UNSTEADY. STAFF AT BEDSIDE. SR UP X3, CALL LIGHT WITHIN REACH REACH AND BED ALARM ON.
[2018-09-28 04:38] LABS: ANION GAP 21.5 mmol/L (8-16); CALCIUM 8.7 mg/dL (8.5-10.1); CARBON DIOXIDE 15.9 mmol/L (21.0-32.0); CREATININE - SERUM 5.1 mg/dL (0.6-1.3); POTASSIUM - SERUM 4.4 mmol/L (3.5-5.1)
--- NOTE | 2018-09-28 05:04 | NUR ---
ENCLOSURE BED NOW AVAILABLE. PT PLACED IN ENCLOSURE BED WITHOUT INCIDENT. GAIT VERY UNSTEADY. PT DENIED NEED FOR BATHROOM AND DECLINED OFFER FOR WATER JUST PRIOR TO PLACING IN ENCLOSURE BED. ALL SIDES ZIPPED AND CALL LIGHT WITHIN REACH.
--- NOTE | 2018-09-28 06:11 | NUR ---
PT CONTINUES TO BE CONFUSED. ATTEMPTING TO PUSH HIMSELF THROUGH THE NETTING. REFUSED AM MEDS. CONTINUES TO HAVE VISUAL HALLUCINATIONS. PT IN ENCLOSURE BED, CALL LIGHT WITHIN REACH.
--- NOTE | 2018-09-28 06:55 | NUR ---
PT IN ALCIRA BED AT THIS TIME. ALERT/CONFUSED. RESP EVEN AND NONLABORED ON RA. NO IV ACCESS NOTED. PT DENIES ANY NEEDS AT THIS TIME. CALL LIGHT IN REACH, NAD NOTED, WILL CONTINUE PLAN OF CARE.
[2018-09-28 07:37] VITALS: BP 133/60
--- NOTE | 2018-09-28 09:15 | NUR ---
AM MEDS GIVEN, ALSO GAVE 0.5MG OF ATIVAN. PT PULLING AT BED AND ITEMS INSIDE BED, STANDING UP. INSTRUCTED PT TO SIT DOWN, FEED HIM BREAKFAST, PT EAT ABOUT 25%. A/O X1, RESP EVEN AND NONALABORD ON RA. NO IV ACCESS. ZIPPED UP ALCIRA BED AND INSTRUCTED PT TO CALL IF HE NEEDED ANYTHING. CALL LIGHT IN REACH, NAD NOTED, WILL CONTINUE TO MONITOR.
--- NOTE | 2018-09-28 11:30 | NUR ---
WENT TO GIVE PT MEDICATIONS PT REFUSED TO TAKE PO MEDS AT THIS TIME. OFFERED PT SOME WATER AND REFUSED WATER. PROVIDED INCONT CARE, PT WILL NOT LEAVE HIS CLOTHES ON, COMPLETELY NAKED AT THIS TIME. WILL HAVE SALESPERSON MEN'S HATS BRING ME SOME SCRUBS TO SEE IF PT WILL LEAVE THEM ON. PT PULLING AT NETTING ON BED, AND TALKING NONSENSE. ZIPPED BED BACK UP, CALL LIGHT IN REACH, NAD NOTED, WILL CONTIUE TO MONITOR.
[2018-09-28 12:08] VITALS: BP 106/69
--- NOTE | 2018-09-28 13:12 | NUR ---
UNZIPPED ALCIRA BED, OFFERED PT HIS FOOD, PT DECLINED OFFER, ASKED PT IF HE NEEDED TO USE THE BATHROOM, PT STATED " NO, I JUST WANT TO SLEE". PT DENIES ANY NEEDS AT THIS TIME. CALL LIGHT IN REACH, ALCIRA BED ZIPPED BACK UP. WILL CONTINUE TO MONITOR.
--- NOTE | 2018-09-28 13:52 | NUR ---
PT VERY AGITATED, TELLING HIS THAT THEY NEED TO GO TO THE POLICE, TO GET THE MONEY. REMOVED ALL OF HIS CLOTHES AND REFUSES TO PUT IT BACK ON. UPSET THAT PT IS ACTING LIKE THIS. INFORMED PT'S THAT PT IS NOT STABLE ENOUGH TO GO HOME THAT HE WILL NEED TO GO TO INPATIENT [facility]. TRIED TO RE-ORIENT PT, WITH NO SUCCESS.
--- NOTE | 2018-09-28 15:05 | NUR ---
PT A LITTLE LESS AGITATED, BUT STILL PULLING AT THINGS AND WILL NOT KEEP HIS CLOTHES ON. OFFERED PT LUNCH AND AGAIN HE DECLINED TO EAT. ZIPPED BED BACK UP. CALL LIGHT IN REACH, WILL CONTINUE TO MONITOR.
--- NOTE | 2018-09-28 17:50 | NUR ---
WAS ABLE TO GET PT TO EAT ABOUT 20% OF HIS FOOD, AND GOT HIM TO TAKE A FEW SIPS OF WATER AND TEA. CLEANED PT UP FROM INCONT EPISODE. ZIPPED ALCIRA BED BACK UP. PT TRYING STAND UP IN THE BED, INSTRUCTED PT TO SIT BACK DOWN AND WAS ABLE TO GET HIM TO LAY DOWN. CALL LIGHT IN REACH. WILL CONTINUE TO MONITOR.
--- NOTE | 2018-09-28 19:03 | NUR ---
OFFERED PT SOME WATER AND ASKED HIM IF HE NEEDED TO USE THE URINAL. PT TOOK 2 SIPS OF WATER AND DENIED ANY NEED TO USE URINAL. PT CONFUSED AND PULLING AT GOWN AND SHEETS. TRIED TO RE-ORIENT PT, GOT PT TO LAY DOWN IN THE BED. CALL LIGHT IN REACH.
--- NOTE | 2018-09-28 19:30 | NUR ---
PT IN ENCLOSURE BED. CONFUSED. DISORIENTED X 3. AGITATED. CLOTHES OFF, TRYING TO GET FINGERS THROUGH MESH TO SHAKE IT. YELLING AT NURSE. PRINTED FORMS PROOFREADER ATTEMPTING TO GET HIS VITAL SIGNS AND PT IS COMBATIVE AND REFUSING. MONITOR AND MAINTAIN IN A SAFE ENVIRONMENT.
--- NOTE | 2018-09-28 19:47 | NUR ---
INITIAL ROUNDS AND ASSESSMENT COMPLETED. PT RESTING. NO DISTRESS. MONITOR AND CPOC. CALL LIGHT IN REACH.
--- NOTE | 2018-09-28 19:48 | NUR ---
INITIAL ROUNDS AND ASSESSMENT COMPLETED. PT RESTING IN ENCLOSURE BED. AWAKE/ALERT/RESTLESS. NO DISTRESS. VS PER PROTOCOL/MONITORING AND RELEASE PER PROTOCOL. CLEAN/DRY AND NO NEEDS AT THIS TIME.
--- NOTE | 2018-09-28 21:15 | NUR ---
PT ACTIVELY MOVING ABOUT IN HIS ENCLOSURE BED. VERY AGITATED. APPROACHED WITH HIS BEDTIME MEDS AND HE YELLED AND TOLD NURSE AND EXPORT SPECIALIST "YOU'RE FIRED!".PUNCHING THE SIDES OF THE BED, GRABBING THE MESH AND TRYING TO RIP IT. CRAWLING FROM ONE END OF THE BED TO ANOTHER. WILL MONITOR AND MAINTAIN IN A SAFE ENVIRONMENT.
--- NOTE | 2018-09-28 23:15 | NUR ---
PT AWAKE, CONFUSED. CLIMBING AROUND INSIDE OF ENCLOSURE BED, TRYING TO KICK OUT THE MESH PART OF THE BED. CONVERSATION IS RAMBLING AND TANGENTIAL. DISORIENTED TO PERSON/PLACE/TIME. REFUSED TO TAKE MEDS IN MED CUP. MEDS GIVEN IN ICECREAM AND HE TOOK THEM THAT WAY. TRIED TO EXPLAIN TO HIM THE PURPOSE OF THE ENCLOSURE BED FOR HIS SAFETY. PT DOES NOT LISTEN OR COMPREHEND WHAT IS BEING SAID TO HIM.
[2018-09-28 23:57] VITALS: BP 141/63
--- NOTE | 2018-09-29 01:20 | NUR ---
RESTING WITH EYES CLOSED. RESPS EVEN/NONLABORED. HAS HIS HEAD ON THE FOOT OF THE BED AND GOWN OFF. BRIED ON. DRY. NO DISTRESS. REMAINS IN ENCLOSURE BED.
--- NOTE | 2018-09-29 03:00 | NUR ---
PT RESTING IN ENCLOSURE BED WITH EYES CLOSED. HEAD AT FOOT OF BED. NO DISTRESS. MONITOR AND MAINTAIN IN A SAFE ENVIRONMENT.
--- NOTE | 2018-09-29 03:54 | NUR ---
RESTING IN ENCLOSURE BED WITH NO DISTRESS. HAS REMOVED ALL OF HIS CLOTHES AND IS LAYING AT THE FOOT OF THE BED. MONITOR AND CPOC.
[2018-09-29 05:38] VITALS: BP 143/54
--- NOTE | 2018-09-29 07:17 | NUR ---
PT RESTING COMFORTABLY IN BED, WITH EYES CLOSED, EASILY AROUSES TO VOICE, OFFERED PT WATER, PT DECLINED OFFER FOR WATER, DENIES ANY NEEDS AT THIS TIME. SEEMS CONTENT AT THIS TIME. CALL LIGHT IN REACH, NAD NOTED, WILL CONTINUE PLAN OF CARE.
[2018-09-29 08:45] VITALS: BP 146/64
[2018-09-29 08:51] VITALS: BP 146/64
--- NOTE | 2018-09-29 10:00 | NUR ---
AM MEDS GIVEN MIXED WITH SHERBERT, CLEANED PT UP FROM INCONT EPISODE, PROVIDED SPONGE BATH, ALSO FEED PT HIS BREAKFAST, PT ATE ABOUT 50% OF HIS BREAKFAST, DENIES ANY AT THIS TIME. CALL LIGHT IN REACH, ALCIRA PARRA, NAD NOTED, WILL CONTINUE TO MONITOR.
--- NOTE | 2018-09-29 11:16 | NUR ---
PT RESTING COMFORTABLY IN BED, DENIES ANY NEEDS AT THIS TIME. OFFERED HIM SOMETHING TO DRINK, PT DECLINED OFFERED. CALL LIGHT IN REACH. NAD NOTED, WILL CONTINUE TO MONITOR.
[2018-09-29 12:07] VITALS: BP 142/60
--- NOTE | 2018-09-29 12:15 | CN ---
PATIENT NAME:RUSSELL SCHULZ MEDICAL RECORD: [id number] : 31 LOCATION:[facility].2124 ADMIT DATE: 09/23/18 ACCOUNT: [id number] CONSULTING PHYSICIAN: RICHARD BOYD MD REFERRING PHYSICIAN: VICTOR MANUEL CASTANEDA DO DATE OF CONSULTATION: 09/28/2018 IDENTIFYING DATA: The patient is 82 years old and he was admitted to the hospital on a voluntary basis secondary to confusion. The patient was transferred to us from the hospital in [place], where he was a patient. He had a urinary tract infection, was dehydrated and was referred to us along with the confusion. He has a very complicated medical history that includes hypertension, glaucoma, chronic kidney disease, and irritable bowel syndrome. In fact, he was scheduled to have a fistula placed for dialysis. The patient has now shown some improvement and was scheduled for discharge. Unfortunately, he has become quite agitated and aggressive with staff. He has little or no recollection of this. MENTAL STATUS EXAMINATION: The patient is sleepy, but arousable. He is oriented to person only. The remainder of the mental status exam was not possible. ASSESSMENT: Senile dementia of the Alzheimer's type with behavioral disturbances. PLAN: The patient is appropriate for management on the behavioral unit once he is medically stabilized. In the interim, I would treat him with kenny Giraldo. TRANSINT:[id number] Voice Confirmation ID: [id number] DOCUMENT ID: [id number] RICHARD BOYD MD at 1215 CC: [id number] DICTATION DATE: 09/28/18 1228 CARDROOM HAND: 09/28/18 1337 ADM IN [facility] [address] [place] [address]
[2018-09-29] MEDS ORDERED: SODIUM BICARBO650 MG PO (12:52)
[2018-09-29] MEDS ORDERED: SEROQUEL25 MG PO (12:52)
[2018-09-29] MEDS ORDERED: GEODON20 M1 IM (12:52)
[2018-09-29] MEDS ORDERED: PROTONIX40 MG PO (12:52)
--- NOTE | 2018-09-29 16:05 | NUR ---
PT UNABLE TO SIGN DISCHARGE PAPERS, PT TAKEN DOWN TO NURSING HOME BY JULIANE ERICKSON. WITH ALL BELONGINS, NAD NOTED.
--- NOTE | 2018-09-30 08:34 | MORECARE ---
CASE MANAGEMENT DISCHARGE SUMMARY PATIENT: RUSSELL SCHULZ UNIT: [id number] ADM DATE: 09/23/18 AGE: 82 : 33 SEX: M ROOM/BED: D.2123 AUTHOR: GRECIA DAVID PHYSICIAN: REFERRING PHYSICIAN: VICTOR MANUEL CASTANEDA DO DATE OF SERVICE: 09/30/18 Discharge Plan Patient Name: RUSSELL SCHULZ [facility] [facility] 1935 Planned Disposition: Inpatient Psych Facility Anticipated Discharge Date: 09/29/18 Discharge Date: 09/29/2018 Expected LOS: 6 Initial Reviewer: [email or web address] Initial Review Date: 09/30/2018 Generated: 09/30/18 9:34 am Comments DCP- Discharge Planning Updated by [email or web address]: Tessa Mccoy on 09/27/18 10:[address] 0900 CM VISITED THE BEDSIDE THIS AM. NO ONE WAS LOCATED AT THE BEDSIDE. PATIENT FOR OR TODAY. CM WILL FOLLOWUP. PATIENT W/ SEVERE DEMENTIA. Patient Name: RUSSELL SCHULZ Page [phone] at 0834 All edits/amendments must be made on the electronic document DICTATION DATE: 09/30/18833 DOOR PULLER: MANSI 09/30/18833 RPT#: [id number] DC DATE:09/29/18 STATUS: DIS IN [facility] [address] [place] [address] END OF REPORT
--- NOTE | 2018-10-04 15:16 | OP ---
PATIENT NAME: RUSSELL SCHULZ MEDICAL RECORD: [id number] :31 LOCATION:D. D.4 ADMISSION DATE:09/23/18 SURGEON: KHANH MOY MD DATE OF OPERATION: 09/27/2018 REFERRING PHYSICIAN: Dr. Barahona. PREOPERATIVE DIAGNOSIS: Chronic kidney disease IV. OPERATION PERFORMED: Creation of a right radiocephalic arteriovenous fistula. SURGEON: Khanh Moy MD ANESTHESIA: TIVA plus regional nerve block per TRAINING COORDINATOR. PREOPERATIVE NOTE: This gentleman is an 82-year-old white male patient with severe renal insufficiency is thought to likely require dialysis and he had been referred to me for creation of vascular access and actually was scheduled for procedure to be done next week. He was admitted to the hospital on this occasion with dehydration and general medical deterioration, but he has still not thought to require dialysis at this time, but I am going to go ahead and take him to the operating room today to get his access operation done during this hospitalization rather than bringing him back for another outpatient procedure. With the patient under regional block anesthesia and TIVA, he was prepped and draped in a sterile manner. The right cephalic vein at the wrist stood out beautifully preop and especially so after the regional nerve block was administered. The radial artery pulse was bounding and I felt that despite the patient's advanced age, he was actually a reasonable candidate for a radiocephalic wrist fistula and proceeded with that. A longitudinal incision was made in the radial artery and cephalic vein exposed and dissected from the surrounding tissues. Branches and tributaries were divided between ligatures of Vicryl, Hemoclips, and with the use of electrocautery. There was an unusually brisk amount of bleeding from the subcutaneous tissues with the initial incision. However, this did stop with appropriate use of electrocautery and compression with dry gauze and I was able to go on with the procedure without continued coagulopathic bleeding. The vein was ligated and divided distally and then shortened and beveled and flushed with heparinized saline and hydrostatically dilated and treated repeatedly with topical papaverine. This made a very nice 5 mm vein. The artery was controlled and occluded as needed with doubly looped Silastic tapes. An arteriotomy approximately 6 mm in length was made and the artery then flushed with heparinized saline. An end-to-side, end of vein to side of artery, anastomosis was then performed with running 7-0 Prolene. When completed and the arterial loops were released, excellent flow developed immediately within the new fistula and there was no bleeding from the suture line. The wound was irrigated with saline and Surgicel powder applied to the wound. The wound was then closed with interrupted inverted 3-0 Vicryl and then running intracuticular 4-0 Monocryl and Dermabond glue. The incision was dressed with Maxorb Ag, Tegaderm, and Cavilon skin prep. He was awakened and returned to the recovery room. Blood loss during the operation was insignificant and unreplaced. Sponges, instruments, and needles were accounted for. No drain was used and no surgical OPERATIVE REPORT [id number] RUSSELL SCHULZ specimen was provided for histopathology. PLAN: The patient will be discharged from the hospital whenever he meets criteria per his primary care physician and nephrology. I will see him back in my office probably in about 2 weeks for a wound check. TRANSINT:[id number] Voice Confirmation ID: [id number] DOCUMENT ID: [id number] KHANH MOY MD at 1516 CC: HELADIO BARAHONA MD [id number] DICTATION DATE: 09/27/18 1117 INTERNAL GRINDER SET UP OPERATOR: 09/27/18 1138 DIS IN 09/29/18 [facility] [address] [place] [address]
== END 2018-09-29 16:06 | DRG 853 ==
LOC: D.ER 19:55 → D.M2 20:50
PROVIDERS: Family Medicine; Internal Medicine; Surgery; ADMIT Family Medicine; ATTEND Family Medicine
PROC: 031B0JF Bypass Right Radial Artery to Lower Arm Vein with Synthetic Substitute, Open Approach (ICD-10-PCS; principal; 2018-09-27 12:00)
DX: A41.9 Sepsis, unspecified organism (principal); G93.41 Metabolic encephalopathy; N17.9 Acute kidney failure, unspecified; N39.0 Urinary tract infection, site not specified; N18.4 Chronic kidney disease, stage 4 (severe); I12.9 Hypertensive chronic kidney disease with stage 1 through stage 4 chronic kidney disease, or unspecified chronic kidney disease; D63.1 Anemia in chronic kidney disease; E86.0 Dehydration; E78.5 Hyperlipidemia, unspecified; G30.9 Alzheimer's disease, unspecified; F02.80 Dementia in other diseases classified elsewhere, unspecified severity, without behavioral disturbance, psychotic disturbance, mood disturbance, and anxiety; K59.00 Constipation, unspecified; H40.9 Unspecified glaucoma

== ENCOUNTER 2018-09-29 15:01 | Inpatient (IN) | payer MEDICARE ==
[~2018-09-29] VITALS: Ht 185.4 cm; Wt 61.0 kg
[~2018-09-29 15:01] MED LIST changes: +GEODON20 M1 IM; +PROTONIX40 MG PO; +SEROQUEL25 MG PO; +SODIUM BICARBO650 MG PO
[2018-09-29 18:08] VITALS: BP 143/56
--- NOTE | 2018-09-29 18:58 | NUR ---
PATIENT ARRIVED ONTO UNIT PER MED 2 STAFF AT 1605 IN A WHEELCHAIR. PATIENT DOES USE CRUTCHES TO AMBULATE. LABEL. PATIENT HAS ALTER THOUGHT PREOCESS. PT DOES HAS DEMENTIA. VERBAL CONSENT GIVEN BY GUARDIAN AT TIME. PATIENT GUARDIAN AND SPOUSE NOTIFIED OF PATIENT COMING TO UNIT. CODEWORD: LAURA. CODE STATUS: FULL CODE. PATIENT VITAL SIGNS: B/P-143/56, P-67,R-20, T-98.4,99%. WEIGHT-131.4. PATIENT IS IN WHEELCHAIR WITH CHAIR ALARM IN PLACE. PATIENT HAS SHUNT IN THE RIGHT WRIST. THRILL AND BRUIT PRESENT. AREA IN RED AND SWOLLEN. AREA IS NOT HOT TO THE TOUCH. PATIENT HAS NO BREAKDOWN NOTED TO SKIN. BILATERAL BOWEL SOUNDS NOTED. NO EDEMA NOTED TO BILATERAL ANKLES.
[2018-09-29 20:56] VITALS: BP 145/50
--- NOTE | 2018-09-30 00:42 | NUR ---
RECEIVED IN DAYROOM. SITTING IN A WHEELCHAIR WITH PEERS AT HIS SIDE. VERY CONFUSED. CALM AND COOPERATIVE WITH CARE AND ASSESSMENT. REDIRECT AND REOREINT NEEDED. RESTING IN BED WITH EYES CLOSED AT THIS TIME. CONTINUE PLAN OF CARE
[2018-09-30 06:59] LABS: BASOPHILS 0.2 % (0-2); EOSINOPHILS 2.3 % (0-7); HEMATOCRIT 25.4 % (42.0-54.0); HEMOGLOBIN 8.3 g/dL (13.5-17.5); IMMATURE GRANULOCYTES 0.2 % (0-5); LYMPHOCYTES 14.2 % (15-50); MCH 30.1 pg (26.0-34.0); MCHC 32.7 g/dL (31.0-37.0); MEAN PLATELET VOLUME 8.6 fL (7.4-10.4); MONOCYTES 13.6 % (2-11); NEUTROPHILS 69.5 % (40-80); RBC 2.76 10x6/uL (4.20-6.10); RDW 13.8 % (11.5-14.5); WBC 8.2 10x3/uL (4.8-10.8)
[2018-09-30 07:00] VITALS: BP 130/51
[2018-09-30 07:31] LABS: PLATELET COUNT 340 10x3/uL (130-400)
[2018-09-30 07:39] VITALS: BMI 18.3
[2018-09-30 07:52] LABS: ALBUMIN 2.9 g/dL (3.4-5.0); ANION GAP 21.3 mmol/L (8-16); BILIRUBIN - TOTAL 0.3 mg/dL (0.2-1.3); CHOL - HDL RATIO 2.3 ratio (2.3-4.9); CREATININE - SERUM 5.3 mg/dL (0.6-1.3); LDL-HDL RATIO 1.2 ratio (1.5-3.5); POTASSIUM - SERUM 4.3 mmol/L (3.5-5.1); PROTEIN - SERUM 7.6 g/dL (6.4-8.2); THYROID STIMULATING HORMONE 1.98 uIU/mL (0.36-3.74)
--- NOTE | 2018-09-30 08:30 | NUR ---
AWAKE AND ORIENTED TO SELF ONLY, WITH CONFUSION NOTED. CALM AND COOPERATIVE WITH CARE AND ASSESSMENT. COMPLIANT WITH MEDICATIONS. REDIRECT AND REORIENT NEEDED. CONTINUE POC.
[2018-09-30 09:47] VITALS: Ht 185.4 cm; Wt 61.0 kg
[2018-09-30 16:10] LABS: APPEARANCE CLEAR (CLEAR); BILIRUBIN NEGATIVE (NEGATIVE); COLOR YELLOW (YELLOW); GLUCOSE NEGATIVE (NEGATIVE); KETONE NEGATIVE (NEGATIVE); NITRITE NEGATIVE (NEGATIVE); PROTEIN TRACE mg/dL (NEGATIVE); UROBILINOGEN NORMAL (NORMAL)
[2018-09-30 16:12] LABS: BACTERIA FEW /hpf (NONE SEEN); RED CELLS - URINE 0-5 /hpf (0-5); WHITE CELLS - URINE OCC /hpf (0-5)
--- NOTE | 2018-09-30 19:46 | NUR ---
RECEIVED IN DAYROOM. SITTING WITH PEERS AND STAFF AT HIS SIDE. CALM AND COOPERATIVE WITH CARE AND ASSESSMENT. VERY CONFUSED. REDIRECT AND REORIENT NEEDED. CONTINUES TO SIT QUIELY. CONTINUE PLAN OF CARE
[2018-09-30 20:00] VITALS: BP 134/64
[2018-10-01 08:30] VITALS: BP 117/61
--- NOTE | 2018-10-01 11:51 | NUR ---
RECEIVED PATIENT IN DAYROOM, SITTING IN W/C, CALM, COOPERATIVE, CONFUSED, PLEASANT. MEDS ADMIN PER MED NURSE. COOPERATIVE WITH STAFF AND GROUP ACTIVITY. CONT POC INCLUDING MEDICATIONS AND GROUP THERAPY DIRECTED.
--- NOTE | 2018-10-01 13:17 | PSY ---
PATIENT NAME:RUSSELL SCHULZ MEDICAL RECORD: [id number] : 31 LOCATION:[facility] ADMISSION DATE: 09/29/18 ACCOUNT: [id number] PSYCHIATRIC EVALUATION DATE OF EVALUATION: 09/30/18 PSYCHIATRIC EVALUATION IDENTIFYING DATA: The patient is 82 years old and he is admitted to the hospital on a voluntary basis. CHIEF COMPLAINT: Confusion. HISTORY OF PRESENT ILLNESS: The patient was recently admitted to the hospital secondary to confusion. I was asked to see him while he was hospitalized here and he had pulled his IV out and was so agitated that he required a [place] bed to contain him. He had urinary tract infection and was dehydrated. This had been treated and is being treated, but his confusion has not gotten any better. He is only oriented to person. He is very confused. It is unknown what his baseline level was, but I am certain he had dementia when he arrived here. PAST MEDICAL HISTORY: Significant for hypertension, glaucoma, chronic kidney disease, and irritable bowel syndrome. PAST PSYCHIATRIC HISTORY: Significant for dementia, although I do not know when or how that was diagnosed. FAMILY HISTORY: Unknown. ALLERGIES: No known drug allergies. CURRENT MEDICATIONS: Include Norvasc, Protonix, Linzess, Aricept, Seroquel, Hytrin, and Pravachol. SOCIAL HISTORY: The patient is . It is unknown if he has children. He denies that he has a history of drug or alcohol abuse, but I do not think he is answering questions adequately. He is unable to tell me about his longitudinal history. MENTAL STATUS EXAMINATION: The patient is awake, alert, and oriented to person only. His mood is flat. His affect is constricted. Thought processes are very disorganized and although formal memory, concentration, and abstraction testing is not possible, they are all inferred to be severely impaired. He does deny that he would seek to harm himself or others. He denies psychotic symptoms, but I do not think he understood the question. ASSETS: Stable living environment. LIABILITIES: Limited insight. DIAGNOSTIC IMPRESSION: AXIS I: Senile dementia of the Alzheimer's type with behavioral disturbances. AXIS II: None. AXIS III: Hypertension, chronic renal disease, dehydration, and urinary tract infection. AXIS IV: Moderate. AXIS V: Global assessment of functioning is 25. PLAN: At this time, the patient is admitted to the hospital secondary to agitated behavior associated with a dementing illness. He will be comprehensively evaluated from both medical, psychological, and social standpoint. His long-term prognosis is guarded. TRANSINT:[id number] Voice Confirmation ID: [id number] DOCUMENT ID: [id number] RICHARD BOYD MD at 1317 CC: [id number] DICTATION DATE: 09/30/18 1615 FINISHING MACHINE OPERATOR AUTOMATIC: 09/30/18 1840 ADM IN [place] [id number] [place] [address]
[2018-10-01 20:00] VITALS: BP 120/52
--- NOTE | 2018-10-01 20:56 | NUR ---
RECEIVED IN DINING AREA. RESTLESS AT TIMES. CALM AND COOPERATIVE WITH CARE AND ASSESSMENT. CONFUSED. REDIRECT AND REORIENT NEEDED. SITTING QUIETLY IN DAYROOM AT THIS TIME. CONTINUE PLAN OF CARE
--- NOTE | 2018-10-02 09:00 | NUR ---
AWAKE AND ALERT TO SELF ONLY, WITH CONFUSION NOTED. CALM AND COOPERATIVE WITH CARE AND ASSESSMENT. NO AGGRESSION NOTED. REDIRECT AND REORIENT NEEDED. MEDICATION COMPLIANT. WILL CONTINUE PLAN OF CARE.
[2018-10-02 10:16] VITALS: BP 125/55
--- NOTE | 2018-10-02 20:49 | NUR ---
PATIENT IS CONFUSED, ORIENTED TO SELF. HAS TO BE DIRECTED. FISTULA TO RIGHT LOWER ARM IS SWOLLEN, RED, HOWEVER HAS IMPROVED BUT DR. MOY HAS BEEN CONSULTED. COMPLIANT WITH MEDS. NO ADVERSE REACTION NOTED. WILL FOLLOW POC
[2018-10-02 21:07] VITALS: BP 122/64
--- NOTE | 2018-10-03 08:09 | NUR ---
B) The patient is in bed this am, he is confused, he is having a difficult time expressing the words he wants to say. He is quiet. He is able to self propel in a w/c. He has a fistula in his right arm that is new and it has some swelling noted. At this time he is not receiving dialysis. I) Provide prescribed meds. R) The patient has poor insight into his situation. P) Continue POC.
--- NOTE | 2018-10-03 15:47 | NUR ---
Nutrition Follow Up: Chart reviewed Diet: AHA; Boost TID PO Intake: 78% meal avg BM: 10/01/18 Meds and labs reviewed Rec continue current diet, supplement regimen. RD following.
[2018-10-03 20:43] VITALS: BP 130/70
--- NOTE | 2018-10-03 22:12 | NUR ---
PATIENT IS CONFUSED, CAN MAKE NEEDS KNOWN, COMPLIANT WITH MEDS, AMBULATES WITH THE USE OF A WHEEL CHAIR MOST OF THE TIME. HAS TO BE TOLD ONE THING OVER AND OVER AGAIN. WILL FOLLOW POC
--- NOTE | 2018-10-03 23:59 | NUR ---
RECIEVED UP AMBULATING IN HALLWAY. ALERT AND CONFUSED. ABLE TO REDIRECT TO BED. NO S/S OF DISTRESS OBSERVED.REPORT GIVEN BY DEMIAN ERICKSON.
--- NOTE | 2018-10-04 07:18 | NUR ---
B) The patient is awake, he ambulates with a walker. He is confused as he knows his name only. He has poor insight into his situation. He is hyngry often. I) Provide prescribed meds. R) The patient is compliant with meds and unit milieu. P) Continue POC.
[2018-10-04 09:40] VITALS: BP 105/68
[2018-10-04 20:28] VITALS: BP 123/50
--- NOTE | 2018-10-05 03:34 | NUR ---
B.) Patient is alert and oriented to person only. He ambulates with his walker. I.) Encouraged compliance with medications. R.) Compliant with PM medications. P.) continue POC.
[2018-10-05 09:29] VITALS: BP 117/51
--- NOTE | 2018-10-05 11:54 | PN ---
PATIENT:RUSSELL SCHULZ MEDICAL RECORD: [id number] LOCATION:[facility] ADMISSION DATE: 09/29/18 PROGRESS NOTE DATE OF SERVICE: 10/04/2018 SUBJECTIVE: The patient's case was discussed with staff. He has no new complaint. OBJECTIVE: The patient denies intent to harm himself or others. He is tolerating his medicines well. He is eating adequately. He is sleeping perfectly fine. ASSESSMENT: No change in diagnoses. PLAN: The patient will be maintained on current medications with the exception of the Aricept, which will be increased to 10 mg at bedtime. Aricept is being used to treat his underlying cognitive impairment. He will be monitored for clinical changes associated with its use. TRANSINT:[id number] Voice Confirmation ID: [id number] DOCUMENT ID: [id number] RICHARD BOYD MD at 1154 CC: [id number] DICTATION DATE: 10/04/18 1620 TWISTER OPERATOR: 10/04/18 3579 ADM IN [place] [id number] [place] [id number]
--- NOTE | 2018-10-05 21:30 | NUR ---
PATIENT PUT PILLS IN MOUTH THEN SPIT OUT 3 OF THEM. WASTED THEM IN SHARPS WITH DRE PAIGE.
--- NOTE | 2018-10-05 21:47 | NUR ---
PATIENT SPIT OUT 3 OF HIS MEDICATIONS. WASTE WITH NURSE PAIGE.
[2018-10-05 22:04] VITALS: BP 123/43
--- NOTE | 2018-10-06 00:10 | NUR ---
B.) Patient is pleasant and alert. He ambulates by hiself. I.) Provide PM Medications. R.) Patient refused half of his medications. P.) Continue Plan of Care.
--- NOTE | 2018-10-06 06:29 | NUR ---
PATIENT REFUSED FSBS AND LINZESS 72 MCG AND PROTONIX 40MG.
[2018-10-06 07:00] VITALS: BP 144/61
--- NOTE | 2018-10-06 08:44 | NUR ---
REFUSING TO GET OUT OF BED,ARGUMENTIVE,WILL NOT REDIRECT.HALDOL 2MG AND ATIVAN 0.5MG IM TO RIGHT HIP GIVEN.
--- NOTE | 2018-10-06 09:30 | NUR ---
PT. RESTING QUIETLY IN W/C, ALERT, CALM, BREAKFAST COMPLETE. NO FURTHER EPOSODES OF AGGRESSION NOTED.
--- NOTE | 2018-10-06 09:30 | NUR ---
GOOD RESPONSE TO HALDOL AND ATIVAN.RESTING QUIETLY WITH EYES CLOSED IN RECLINER.WILL AROUSE EASILY BUT GOES BACK TO SLEEP.WILL CONTINUE WITH PLAN OF CARE,MONITOR FOR SAFETY AND CHANGES.
--- NOTE | 2018-10-06 13:01 | PN ---
PATIENT:RUSSELL SCHULZ MEDICAL RECORD: [id number] LOCATION:[facility] ADMISSION DATE: 09/29/18 PROGRESS NOTE DATE OF SERVICE: 10/05/2018 SUBJECTIVE: The patient's case was discussed with staff. He has no new complaint. OBJECTIVE: The patient denies intent to harm himself or others. He generally tolerates his medicines well. He is quite impaired cognitively, but has not been agitated. ASSESSMENT: Senile dementia of the Alzheimer's type with behavioral disturbances. PLAN: Current medicines and therapies have been reviewed and will be maintained. Long-term prognosis is guarded. TRANSINT:[id number] Voice Confirmation ID: [id number] DOCUMENT ID: [id number] RICHARD BOYD MD at 1301 CC: [id number] DICTATION DATE: 10/05/18 1201 FUR WEIGHER: 10/05/18 1313 ADM IN [facility] [address] [place] [address]
[2018-10-06 23:14] VITALS: BP 121/33
--- NOTE | 2018-10-06 23:22 | NUR ---
B.) Patient is alert and oriented to person. He ambulates by hiself but prefers a wheelchair. I.) Provided PM medications R.) Compliant with all PM medications P.) Continue of Plan of Care
--- NOTE | 2018-10-07 01:43 | NUR ---
Patient has increasing anxiety. Pulling furniture into olvera and attempting to enter other patients rooms. Patient recieved Haldol 2MG IM and Ativan 0.5 MG IM.
--- NOTE | 2018-10-07 02:29 | NUR ---
Patient is resting calmly in his room.
[2018-10-07 07:00] VITALS: BP 121/59
--- NOTE | 2018-10-07 08:10 | NUR ---
PATIENT IS ANXIOUS AND UNDRESSING IN DAYROOM. ATIVAN 0.5 MG AND HALDOL 2 MG IM GIVEN IN RIGHT DELTOID.
--- NOTE | 2018-10-07 09:00 | NUR ---
MEDICATION VERY EFFECTIVE. MOVED PATIENT TO RECLINER FROM WHEELCHAIR.
--- NOTE | 2018-10-07 10:32 | NUR ---
EYES CLOSED WITH EVEN RESP.
--- NOTE | 2018-10-07 12:00 | NUR ---
REFUSED TO EAT ANY LUNCH.
--- NOTE | 2018-10-07 13:53 | NUR ---
DIFFICULT WITH REDIRECTION, TRYING TO GET UP WITHOUT ASSISSTANCE. ATIVAN 0.5 MG AND HALDOL 2 MG IM GIVEN FOR ANXIETY.
--- NOTE | 2018-10-07 14:40 | NUR ---
MEDICATION FINALLY TOOK EFFECT. RESTING QUIETLY WITH EYES CLOSED.
[2018-10-07 19:00] LABS: BASOPHILS 0.5 % (0-2); EOSINOPHILS 1.3 % (0-7); HEMATOCRIT 24.8 % (42.0-54.0); IMMATURE GRANULOCYTES 0.1 % (0-5); LYMPHOCYTES 14.1 % (15-50); MCH 30.1 pg (26.0-34.0); MCHC 32.3 g/dL (31.0-37.0); MCV 93.2 fL (80.0-100.0); MEAN PLATELET VOLUME 8.3 fL (7.4-10.4); MONOCYTES 7.5 % (2-11); NEUTROPHILS 76.5 % (40-80); RBC 2.66 10x6/uL (4.20-6.10); RDW 13.7 % (11.5-14.5); WBC 7.5 10x3/uL (4.8-10.8)
[2018-10-07 19:08] LABS: ANION GAP 18.1 mmol/L (8-16); CALCIUM 8.6 mg/dL (8.5-10.1); CARBON DIOXIDE 21.1 mmol/L (21.0-32.0); CREATININE - SERUM 5.1 mg/dL (0.6-1.3); POTASSIUM - SERUM 5.2 mmol/L (3.5-5.1)
[2018-10-07 19:16] LABS: PLATELET COUNT 467 10x3/uL (130-400)
--- NOTE | 2018-10-07 20:10 | NUR ---
RECEIVED IN DAYROOM. SITTING AT TABLE WITH STAFF MEMBER ONE ON ONE FOR SAFETY. ANXIETY. RESTLESS. ATTEMPTS TO STAND WITHOUT ASSIST. VERY CONFUSED. REDIRECT AND REORIENT NEEDED. CONTINUES TO SIT ONE ON ONE WITH STAFF. CONTINUE PLAN OF CARE
[2018-10-08 04:11] LABS: APPEARANCE CLEAR (CLEAR); BILIRUBIN NEGATIVE (NEGATIVE); COLOR YELLOW (YELLOW); GLUCOSE NEGATIVE (NEGATIVE); KETONE NEGATIVE (NEGATIVE); NITRITE NEGATIVE (NEGATIVE); PROTEIN 2+ mg/dL (NEGATIVE); UROBILINOGEN NORMAL (NORMAL)
[2018-10-08 04:12] LABS: BACTERIA FEW /hpf (NONE SEEN); EPITHELIAL CELLS 0-5 /hpf (0-5); RED CELLS - URINE 0-5 /hpf (0-5); WHITE CELLS - URINE NSEEN /hpf (0-5)
[2018-10-08 05:15] VITALS: BP 158/74
--- NOTE | 2018-10-08 10:00 | NUR ---
PATIENT IS AWAKE AND ALERT, WITH CONFUSION NOTED. LESS RESTLESS AND ANXIOUS TODAY. CALM AND COOPERATIVE WITH CARE AND ASSESSMENT. REDIRECT AND REORIENT NEEDED. CONTINUE PLAN OF CARE.
[2018-10-08 11:56] VITALS: BP 165/68
--- NOTE | 2018-10-08 15:19 | PN ---
PATIENT:RUSSELL SCHULZ MEDICAL RECORD: [id number] LOCATION:[facility] ADMISSION DATE: 09/29/18 PROGRESS NOTE DATE OF SERVICE: 10/07/2018 SUBJECTIVE: The patient's case was discussed with staff. He has no new complaint. OBJECTIVE: The patient denies intent to harm himself or others. He is somewhat sedated. He has received multiple p.r.n. doses of Haldol and Ativan over the past 24 hours secondary to aggressive and agitated behavior. ASSESSMENT: No change in diagnoses. PLAN: The patient will be treated with current medicines. I am going to make a change in his antipsychotic medication and I will also check some baseline laboratories. TRANSINT:[id number] Voice Confirmation ID: [id number] DOCUMENT ID: [id number] RICHARD BOYD MD at 1519 CC: [id number] DICTATION DATE: 10/07/18 1519 ELECTRONIC ENGINEERING DRAFTSPERSON: 10/07/18 1701 ADM IN [place] [id number] [place] [address]
--- NOTE | 2018-10-08 20:07 | NUR ---
RECEIVED IN HALLWAY OUTSIDE OF NURSES STATION. CALM AND COOPERATIVE WITH CARE AND ASSESSMENT. RESTLESS IN HIS CHAIR AT TIMES. REDIRECT AND REORIENT NEEDED. IN HALLWAY WITH NURSE AT THIS TIME. CONTINUE PLAN OF CARE
--- NOTE | 2018-10-08 21:05 | NUR ---
IN HALLWAY. RESTLESS. ATTEMPTS TO STAND WITHOUT ASSIST. VERY CONFUSED. INCREASING ANXIETY. REDIRECT AND REORIENT
[2018-10-09 01:35] VITALS: BP 160/70
[2018-10-09 09:10] VITALS: BP 124/62
--- NOTE | 2018-10-09 10:00 | NUR ---
PATIENT AWAKE AND ALERT TO SELF. CALM AND COOPERATIVE WITH CARE AND ASSESSMENT. MEDICATION COMPLIANT. REDIRECT AND REORIENT NEEDED. WILL CONTINUE PLAN OF CARE.
--- NOTE | 2018-10-09 12:39 | PN ---
PATIENT:RUSSELL SCHULZ MEDICAL RECORD: [id number] LOCATION:[facility] ADMISSION DATE: 09/29/18 PROGRESS NOTE DATE OF SERVICE: 10/08/2018 SUBJECTIVE: The patient's case was discussed with staff. He has no new complaint. OBJECTIVE: The patient is much better today, calmer, more cooperative, more redirectable. Yesterday, he was having a number of delusions as well as agitated behavior and I started him on Geodon. 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 PLAN: The Geodon has been prescribed to treat the patient's underlying psychotic symptoms. It seems to have been effective both with the agitation and the psychotic symptoms. I would recommend it to be continued after discharge. TRANSINT:[id number] Voice Confirmation ID: [id number] DOCUMENT ID: [id number] RICHARD BOYD MD at 1239 CC: [id number] DICTATION DATE: 10/08/18 1524 NURSE FIRST ASSIST: 10/08/18 [address] [facility] [address] [place] [address]
[2018-10-09 20:00] VITALS: BP 132/51
--- NOTE | 2018-10-10 01:45 | NUR ---
B) Patient is alert and oriented to self, difficult at times, limit testing at times, I) Administered scheduled medications as ordered, patient showered, redrcted as needed, R) Mediation compliantsleeping quietly in bed, P) Continue plan of care.
--- NOTE | 2018-10-10 08:21 | PN ---
PATIENT:RUSSELL SCHULZ MEDICAL RECORD: [id number] LOCATION:[facility] ADMISSION DATE: 09/29/18 PROGRESS NOTE DATE OF SERVICE: 10/09/2018 SUBJECTIVE: The patient's case was discussed with staff. He has no new complaint. OBJECTIVE: The patient is in good behavioral control. He is not agitated. He is poorly oriented. He is at very high fall risk and requires constant redirection. ASSESSMENT: Senile dementia of the Alzheimer's type with behavioral disturbances. PLAN: Current medicines and therapies have been reviewed, both will be maintained. His long-term prognosis is guarded. TRANSINT:[id number] Voice Confirmation ID: [id number] DOCUMENT ID: [id number] RICHARD BOYD MD at 0821 CC: [id number] DICTATION DATE: 10/09/18 1359 BARN OPERATOR: 10/09/18 1436 ADM IN [facility] [address] [place] [address]
--- NOTE | 2018-10-10 09:14 | NUR ---
RECEIVED PATIENT IN PATIENT'S ROOM, REFUSING TO GET OUT OF BED. HOWEVER, AFTER SEVERAL ATTEMPTS, PATIENT WAS COMPLIANT WITH STAFF'S REQUEST AND DID ARISE FOR BREAKFAST. PATIENT ALERT, UNSTEADY GAIT, REQUIRES FREQUENT RE-DIRECTION TO REMAIN SEATED. ALCIRA ALARM IN PLACE AND SET TO "ON" POSITION. MEDS ADMIN PER ORDERS WITH COMPLETE COMPLIANCE NOTED. COOPERATIVE WITH PLAN OF CARE. CONTINUE POC DIRECTED.
[2018-10-10 09:53] VITALS: BP 149/54
--- NOTE | 2018-10-10 14:51 | NUR ---
Nutrition follow-up: Chart reviewed. Pt receiving an AHA diet with Boost TID PO intake averaging ~72.5% of last 6 meals; pt refused some meals 10/07. Recorded wt: 132# - stable from admit Labs reivewed +BM RDN following.
[2018-10-10 20:00] VITALS: BP 149/61
--- NOTE | 2018-10-10 22:24 | NUR ---
B) Patient is alert and oriented to self, needy and attention seeking from staff, difficult to redirect, can not follow even simple instructions, I) Administered scheduled medications as orderd, monitored for safety, redirected as needed, R) Mediation compliant, restless and in and out of bed several times. P) Continue plan of care.
[2018-10-11 07:36] VITALS: BP 137/50
[2018-10-11 08:02] LABS: BASOPHILS 0.9 % (0-2); EOSINOPHILS 2.1 % (0-7); HEMATOCRIT 26.4 % (42.0-54.0); HEMOGLOBIN 8.3 g/dL (13.5-17.5); IMMATURE GRANULOCYTES 0.2 % (0-5); MCH 30.1 pg (26.0-34.0); MCHC 31.4 g/dL (31.0-37.0); MCV 95.7 fL (80.0-100.0); MEAN PLATELET VOLUME 8.3 fL (7.4-10.4); NEUTROPHILS 60.8 % (40-80); RBC 2.76 10x6/uL (4.20-6.10); RDW 14.2 % (11.5-14.5); WBC 5.3 10x3/uL (4.8-10.8)
[2018-10-11 08:10] LABS: PLATELET COUNT 360 10x3/uL (130-400)
[2018-10-11 08:18] LABS: ALBUMIN 3.2 g/dL (3.4-5.0); ANION GAP 16.2 mmol/L (8-16); BILIRUBIN - TOTAL 0.33 mg/dL (0.2-1.3); CALCIUM 8.8 mg/dL (8.5-10.1); CARBON DIOXIDE 22.1 mmol/L (21.0-32.0); CREATININE - SERUM 5.2 mg/dL (0.6-1.3); MAGNESIUM - SERUM 2.3 mg/dL (1.8-2.4); PHOSPHOROUS 4.5 mg/dL (2.5-4.9); POTASSIUM - SERUM 5.3 mmol/L (3.5-5.1); PROTEIN - SERUM 6.9 g/dL (6.4-8.2)
--- NOTE | 2018-10-11 09:07 | NUR ---
SW SPOKE TO [facility]. PT IS ACCEPTED BY THEM WHEN STABLE ENOUGH TO DISCHARGE.
--- NOTE | 2018-10-11 12:31 | NUR ---
B) The patient is awake, he is oriented to person only, but he is pleasant and has taken redirection, although he forgets in a minute, he has been calm. Did assist him to the BR and brush his teeth. His did call and check on him and asked to tell him she loves him. He did start removing his dressing from his fistula site. Did remove it and Dr. Arguelles visualized it while she was here. No new dressing applied. I) Provide prescribed meds. R) The patient is compliant with meds. He can stand to transfer with assist. P) Continue POC.
[2018-10-11 20:09] VITALS: BP 121/51
--- NOTE | 2018-10-11 21:44 | NUR ---
B.) Patient is alert and oriented to person only. He ambulates by hiself. He has been pleasant. I.) Provided PM medications. Redirect and reorient as needed. R.) Compliant with PM medications. Despite multiple attempts to reorient the patient remains confused. P.) Continue Plan of Care
--- NOTE | 2018-10-12 08:13 | NUR ---
B) The patient is awakened for v/s, but he did not want to get up or do his v/s. He wanted to go back to bed. He is irritable this morning. I) Provide prescribed meds. R) The patient is compliant with meds. He is trying to get up and walk to his room, he is sitting in the hallway at this time. P) Continue POC.
--- NOTE | 2018-10-12 11:05 | NUR ---
The patient is awake and he is restless, he keeps trying to get up and walk to his room. He is getting irritable with staff trying to redirect him. He is beginning to curse and kick out at staff. Did provide 0.5 mg Ativan PO, assisted him to the couch with a chair alarm on.
--- NOTE | 2018-10-12 11:17 | PN ---
PATIENT:RUSSELL SCHULZ MEDICAL RECORD: [id number] LOCATION:[facility] ADMISSION DATE: 09/29/18 PROGRESS NOTE DATE OF SERVICE: 10/11/2018 SUBJECTIVE: The patient's case was discussed with staff. He has no new complaint. OBJECTIVE: The patient is in good behavioral control with limited insight about his condition. He tolerates his medicines well. ASSESSMENT: Senile dementia of the Alzheimer's type, with behavioral disturbances. PLAN: Current medicines have been reviewed and will be maintained. Long-term prognosis is guarded. Both supportive and educational interventions were made. TRANSINT:[id number] Voice Confirmation ID: [id number] DOCUMENT ID: [id number] RICHARD BOYD MD at 1117 CC: [id number] DICTATION DATE: 10/11/18 1522 BUSINESS OFFICE REPRESENTATIVE: 10/11/18 1535 ADM IN [place] [place] [address]
--- NOTE | 2018-10-12 11:40 | NUR ---
The patient is asleep on the couch.
--- NOTE | 2018-10-12 15:42 | NUR ---
The patient awakened and asked to go to the bathroom, he refused to allow staff to help him, he tried to hit and kick staff. Staff did assist him to the bathroom and he did urinate, but he already was wet, did clean his periarea and put on new briefs and pants. He is beginning to fight and kick again because he wants to go to bed, he has no understanding about not going. Did try to recline him in the gerichair with a blanket and pillow. He did not want that either. Assisted him to the couch, that lasted a few seconds. Offered him something to eat or a snack. he refused, continued to kick out at staff and not redirect. Ativan 0.5 mg IM provided in right deltoid.
--- NOTE | 2018-10-12 16:18 | NUR ---
The patient is awake and he continues to not listen to direction. He is cursing and trying to walk, but he is unsteady. Will continue to monitor.
--- NOTE | 2018-10-12 21:39 | NUR ---
PATIENT IS CONFUSED AND HAS TO BE REDIRECTED OVER AND OVER, HE TRIES TO GET UP OVER AND OVER. COMPLIANT WITH MEDS. HALDOL/ATIVAN GIVEN AT 2009 IM TO LEFT ARM AND PATIENT IS STILL TRYING TO GET UP AND KEEPS TALKING ABOUT CALLING HIS GIRLFRIEND AND ASKING THIS NURSE FOR A "KISS". WILL MONITOR.
[2018-10-12 21:57] VITALS: BP 134/47
[2018-10-13 07:00] VITALS: BP 156/61
--- NOTE | 2018-10-13 08:10 | NUR ---
REC'D PT SITTING IN CHAIR. CONFUSION NOTED. ORIENTED TO SELF ONLY. REDIRECTION CONSTANTLY GIVEN. UNABLE TO REDIRECT AT TIMES. PT DOES NOT LISTEN TO REDIRECTION. PT DID NOT SLEEP WELLL ON PREVIOUS SHIFT. AWAKE AT THIS TIME ATTEMPTING TO TAKE GOWN OFF. REDIRECT TO NOT TAKE GOWN OFF. CHAIR ALARM IN PLACE AND ACTIVE. WILL CONT PLAN OF CARE.
--- NOTE | 2018-10-13 08:13 | NUR ---
PATIENT WEIGHT OBTAINED WHILE PATIENT WAS IN CHAIR. CHAIR WEIGHT LABELED. PATIENT WEIGHT SUBTRACT FROM THE WEIGHT OF THE CHAIR.
--- NOTE | 2018-10-13 09:42 | PN ---
PATIENT:RUSSELL SCHULZ MEDICAL RECORD: [id number] LOCATION:[facility] ADMISSION DATE: 09/29/18 PROGRESS NOTE DATE OF SERVICE: 10/12/2018 SUBJECTIVE: The patient's case was discussed with staff. He has no new complaint. OBJECTIVE: The patient has been fairly agitated. He wants to get up and walk, but is a high fall risk. ASSESSMENT: No change in diagnoses. PLAN: The patient has not been combative. I am going to stop his Klonopin and hopefully we can let him get up and move about and he will be more steady. There is a concern that he may become agitated, but if he does, I shall start the medication back. TRANSINT:[id number] Voice Confirmation ID: [id number] DOCUMENT ID: [id number] RICHARD BOYD MD at 0942 CC: [id number] DICTATION DATE: 10/12/18 1120 OPERATIONS ACCOUNTANT: 10/12/18 1203 ADM IN [place] [id number] [place] [address]
[2018-10-13 09:49] LABS: BASOPHILS 0.5 % (0-2); EOSINOPHILS 0.6 % (0-7); HEMATOCRIT 25.4 % (42.0-54.0); HEMOGLOBIN 8.1 g/dL (13.5-17.5); IMMATURE GRANULOCYTES 0.1 % (0-5); LYMPHOCYTES 11.8 % (15-50); MCH 29.9 pg (26.0-34.0); MCHC 31.9 g/dL (31.0-37.0); MCV 93.7 fL (80.0-100.0); MEAN PLATELET VOLUME 8.4 fL (7.4-10.4); MONOCYTES 4.9 % (2-11); NEUTROPHILS 82.1 % (40-80); PLATELET COUNT 332 10x3/uL (130-400); RBC 2.71 10x6/uL (4.20-6.10); RDW 13.9 % (11.5-14.5); WBC 7.7 10x3/uL (4.8-10.8)
[2018-10-13 10:05] LABS: ALBUMIN 3.2 g/dL (3.4-5.0); ANION GAP 14.6 mmol/L (8-16); BILIRUBIN - TOTAL 0.3 mg/dL (0.2-1.3); CALCIUM 8.8 mg/dL (8.5-10.1); CARBON DIOXIDE 24.7 mmol/L (21.0-32.0); CREATININE - SERUM 5.1 mg/dL (0.6-1.3); PHOSPHOROUS 3.9 mg/dL (2.5-4.9); POTASSIUM - SERUM 5.3 mmol/L (3.5-5.1); PROTEIN - SERUM 7.3 g/dL (6.4-8.2)
--- NOTE | 2018-10-13 13:10 | NUR ---
THIS NURSE AND MHT ASSISTED PT WITH A FULL SPONGE BATH. PT TOLERATED WELL. PT ALLOWED NURSE TO BRUSH HIS TEETH. CHAIR ALARM IN PLACE AND ACTIVE. WILL CONT TO MONITOR AND CONT PLAN OF CARE.
--- NOTE | 2018-10-13 14:35 | NUR ---
PATIENT CALLED SHE HAD [employer]. STATED THAT DURING VISITATION ON 10/12/18 PT REPORTED TO THAT HE DID NOT EAT LUNCH. THIS NURSE INQUIRED IF THE TOLD THE STAFF THAT WAS ON DUTY THAT HE PATIENT SAID HE DID NOT EAT LUNCH. STATED "WELL THEY WERE SITTING THERE AND DIDN'T FEED HIM ANYTHING" STAFF ASKED AGAIN IF SHE REPORTED THIS IS STAFF AND DID NOT RESPOND. NURSE STATED SHE WOULD READ NOTES AND OBTAIN A REASON FOR STAFF NOT FEEDING PATIENT. DID REPORT STAFF DID PROVIDE PATIENT WITH ENSURE.
--- NOTE | 2018-10-13 14:51 | NUR ---
NURSE REVIEWED NOTES FROM 10/12/18 STAFF CHARTED THAT AT 1542 PATIENT REFUSED SNACK AND CONTINUED TO KICK AT STAFF.
--- NOTE | 2018-10-13 18:40 | NUR ---
PATIENT SITTING IN CHAIR AT TABLE. RESP EVEN AND NONLABORED. NO ACUTE DISTRESS NOTED. PT WAS DROWSY MOST OF THE DAY. REFUSED TO EAT LUNCH BUT DRANK A SMALL AMOUNT OF ENSURE. PT ATE 100% OF DINNER MEAL. PT DRANK HIS ONE TIME DOSE OF VELTASSA 16.8 GM DUE TO K+ OF 5.3. PT HAS A NEW ORDER FOR DESERYL 100 MG PO AT HS TO HELP SLEEP. PT DID RECIEVE A SHOWER THIS SHIFT. 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 THRILL AND BRUIT NOTED. PT BLOOD SUGAR IN AM WAS 89 AND 89 PM. CHAIR ALARM IN PLACE AND ACTIVE. PT IS CONFUSED AND IN NEED OF CONSTANT REDIRECTION. WILL CONT PLAN OF CARE.
[2018-10-13 20:09] VITALS: BP 141/49
--- NOTE | 2018-10-13 23:32 | NUR ---
PATIENT IS FIGDITY!!! NOT SLEEPING AT NIGHT, HE SLEPT ALL DAY. COMPLIANT WITH MEDS. NO ADVERSE REACTION. WILL MONITOR
[2018-10-14 08:30] VITALS: BP 135/72
--- NOTE | 2018-10-14 12:21 | NUR ---
ORIENTED TO SELF ONLY.RESTLESS,FREQUENTLY HAS TO BE REDIRECTED TO NOT GET UP WITHOUT ASSIST.IS COMPLIANT WITH STAFF AND MEDS.PT EVALUATED AND STOOD ,LEANS TOO FAR BACK TO WALK WITHOUT ASSIST.PT RECOMMENDS REHAB WHEN DISCHARGED.WILL CONTINUE WITH CURRENT PLAN OF CARE,MONITOR FOR CHANGES AND SAFETY.RESTAURANT DELIVERY DRIVER VISITING.
--- NOTE | 2018-10-14 15:05 | PN ---
PATIENT:RUSSELL SCHULZ MEDICAL RECORD: [id number] LOCATION:[facility] ADMISSION DATE: 09/29/18 PROGRESS NOTE DATE OF SERVICE: 10/13/2018 SUBJECTIVE: The patient's case was discussed with staff. He has no new complaint. OBJECTIVE: The patient denies intent to harm himself or others. He is generally tolerating his medicines well. ASSESSMENT: Senile dementia of Alzheimer's type with behavioral disturbances. PLAN: The patient did not sleep well last night. He continues to want to get out of bed. I have reviewed his medicines and intend to maintain them at this point. TRANSINT:[id number] Voice Confirmation ID: [id number] DOCUMENT ID: [id number] RICHARD BOYD MD at 1505 CC: [id number] DICTATION DATE: 10/13/18 1011 ASSISTANT PROFESSOR OF BIOLOGY: 10/13/18 1637 ADM IN [facility] [address] [place] [address]
[2018-10-14 19:10] VITALS: BP 133/55
--- NOTE | 2018-10-14 20:51 | NUR ---
RECEIVED IN HALLWAY. SITTING IN A WHEELCHAIR OUTSIDE OF NURSES STATION. CONFUSED. REDIRECT AND REORIENT NEEDED. CONTINUES TO MOVE ABOUT IN WHEEL CHAIR. CONTINUE PLAN OF CARE
[2018-10-15 07:31] LABS: BASOPHILS 0.6 % (0-2); EOSINOPHILS 4.2 % (0-7); HEMATOCRIT 22.8 % (42.0-54.0); LYMPHOCYTES 21.1 % (15-50); MCH 29.8 pg (26.0-34.0); MCV 93.1 fL (80.0-100.0); MEAN PLATELET VOLUME 8.5 fL (7.4-10.4); MONOCYTES 13.3 % (2-11); NEUTROPHILS 60.8 % (40-80); PLATELET COUNT 296 10x3/uL (130-400); RBC 2.45 10x6/uL (4.20-6.10)
[2018-10-15 07:37] LABS: HEMOGLOBIN 7.3 g/dL (13.5-17.5)
[2018-10-15 07:40] LABS: ALBUMIN 2.7 g/dL (3.4-5.0); ANION GAP 10.5 mmol/L (8-16); BILIRUBIN - TOTAL 0.24 mg/dL (0.2-1.3); CALCIUM 8.6 mg/dL (8.5-10.1); CARBON DIOXIDE 25.5 mmol/L (21.0-32.0); PHOSPHOROUS 3.8 mg/dL (2.5-4.9); PROTEIN - SERUM 6.3 g/dL (6.4-8.2)
--- NOTE | 2018-10-15 08:12 | NUR ---
CRITICAL LAB RESULTS CALLED TO Ziyad STUART APN. NEW ORDERS NOTED FOR NEPHROLOGY CONSULT. DR BURTON ALREADY CONSULTED. WILL CONFIRM WITH Ziyad STUART WHEN SHE ROUNDS THIS MORNING.
--- NOTE | 2018-10-15 08:32 | NUR ---
DR BURTON'S ANSWERING SERVICE NOTIFIED OF CONSULT.
--- NOTE | 2018-10-15 08:37 | NUR ---
DESTINEE DELAROSA RETURNED CALL WITH NEW ORDERS TO BE PLACED FOR RETACRIT SQ.
--- NOTE | 2018-10-15 09:42 | NUR ---
RECEIVED PATIENT IN DINING ROOM FOR B'FAST, APPETITE GOOD. ALERT, RESTLESS, REFUSING MEDS, VERY UNSTEADY GAIT, REQUIRES CONSTANT RE-DIRECTION TO NOT STAND WITHOUT ASSISTANCE. MEDS ADMIN WITH PARTIAL COMPLIANCE NOTED. QUITE UNCOOPERATIVE WITH STAFF. CONT POC, ENCOURAGING INCREASED COMPLIANCE.
--- NOTE | 2018-10-15 09:57 | NUR ---
PT IS VERY AGGRESSIVE WITH STAFF THIS MORNING. PT IS ATTEMPTING TO KICK AND HIT STAFF. UNABLE TO REDIRECT AT THIS TIME. ATIVAN 0.5MG IM AND HALDOL 2MG IM GIVEN PER PRN ORDERS. WILL CONTINUE TO MONITOR FOR SAFETY. WILL CPOC.
--- NOTE | 2018-10-15 11:00 | NUR ---
PT REFUSED VELTASSA 8.4G ORAL SUSPENSION AT THIS TIME. REPORTED TO PHARMACY AND ON COMING NURSES.
--- NOTE | 2018-10-15 12:15 | PN ---
PATIENT:RUSSELL SCHULZ MEDICAL RECORD: [id number] LOCATION:[facility] ADMISSION DATE: 09/29/18 PROGRESS NOTE DATE OF SERVICE: 10/14/2018 SUBJECTIVE: The patient's case was discussed with staff. He has no new complaint. OBJECTIVE: The patient is not sleeping at night. He is agitated. He is making delusional statements. ASSESSMENT: Senile dementia of the Alzheimer's type with behavioral disturbances. PLAN: The patient is going to be restarted on Klonopin. I explained my reasons for stopping it and trying to manage him without it and must say it does not appear to have worked out. His long-term prognosis is guarded. I am pleased that he has been accepted by the halfway. He is not ready for discharge at this point. TRANSINT:[id number] Voice Confirmation ID: [id number] DOCUMENT ID: [id number] RICHARD BOYD MD at 1215 CC: [id number] DICTATION DATE: 10/14/18 1621 POLE INSPECTOR: 10/14/18 1841 ADM IN [facility] [address] [place] [address]
[2018-10-15 12:53] LABS: APPEARANCE CLEAR (CLEAR); BACTERIA FEW /hpf (NONE SEEN); BILIRUBIN NEGATIVE (NEGATIVE); COLOR YELLOW (YELLOW); EPITHELIAL CELLS OCC /hpf (0-5); GLUCOSE NEGATIVE (NEGATIVE); KETONE NEGATIVE (NEGATIVE); NITRITE NEGATIVE (NEGATIVE); PROTEIN TRACE mg/dL (NEGATIVE); RED CELLS - URINE RARE /hpf (0-5); SPECIFIC GRAVITY 1.005 (1.005-1.020); UROBILINOGEN NORMAL (NORMAL); WHITE CELLS - URINE RARE /hpf (0-5)
[2018-10-15 12:54] LABS: MUCUS <1+ /lpf (NONE SEEN)
--- NOTE | 2018-10-15 17:14 | NUR ---
Ativan 0.5 mg and Haldol 2 mg admin IM right deltoid for anxiety. Morris well.
[2018-10-15 20:00] VITALS: BP 143/59
--- NOTE | 2018-10-15 21:25 | NUR ---
RECEIVED IN DAYROOM. SETTING IN A RECELINING CHAIR WITH STAFF AND PEERS AT HIS SIDE. ATTEMPTS TO STAND WITHOUT ASSIST. VERY CONFUSED. CALM AND COOPERATIVE WITH CARE AND ASSESSMENT. REDIRECT AND REORIENT NEEDED. RESTING IN BED WITH EYES OPEN AT THIS TIME. MHT IN ROOM AT THIS TIME. CONTINUE PLAN OF CARE
--- NOTE | 2018-10-16 02:09 | NUR ---
HALDOL 2 MG AND ATIVAN 0.5 MG IM GIVEN IN RIGHT DELTOID FOR ANXIETY. TOLERATED WEEL.
[2018-10-16 10:08] VITALS: BP 111/60
--- NOTE | 2018-10-16 12:08 | NUR ---
CONFUSED AND DISORIENTED.IS COMPLIANT WITH STAFF AND MEDS TODAY.NO AGGRESSION OBSERVED.RESTLESS AT TIMES AND WILL ATTEMPT TO GET OUT OF CHAIR WITHOUT ASSIST.AMBULATED PER PT THIS AM,IS VERY UNSTEADY WITH POOR BALANCE.WILL CONTINUE WITH CURRENT PLAN OF CARE,MONITOR FOR CHANGES AND SAFETY.
[2018-10-16 21:05] VITALS: BP 117/60
--- NOTE | 2018-10-17 00:30 | NUR ---
PATIAENT IS RESTLESS, CONSTANTLY MOVING!!! STILLL NOT SLEEPING AT NIGHT. COMPLIANT WITH MEDS, PLEASANT, NOT AGGRESSIVE, CONFUSED. WILL MONITOR
--- NOTE | 2018-10-17 07:53 | NUR ---
REC'D PT SITTING IN RECLINER CHAIR WITH EYES CLOSED AT THIS TIME. RESP EVEN AND NONLABORED. NO ACUTE DISTRESS NOTED. CONFUSION NOTED. PT IS ALERT TO SELF ONLY. MED COMPLIANT. CHAIR ALARM IN PLACE AND ACTIVE. AWAITING RESULTS FROM URINE CULTURE. WILL CONT PLAN OF CARE.
[2018-10-17 10:48] LABS: BASOPHILS 0.7 % (0-2); EOSINOPHILS 2.8 % (0-7); HEMATOCRIT 26.4 % (42.0-54.0); HEMOGLOBIN 8.5 g/dL (13.5-17.5); IMMATURE GRANULOCYTES 0.2 % (0-5); LYMPHOCYTES 18.7 % (15-50); MCH 30.2 pg (26.0-34.0); MCHC 32.2 g/dL (31.0-37.0); MEAN PLATELET VOLUME 8.7 fL (7.4-10.4); MONOCYTES 9.8 % (2-11); NEUTROPHILS 67.8 % (40-80); PLATELET COUNT 297 10x3/uL (130-400); RBC 2.81 10x6/uL (4.20-6.10); RDW 13.9 % (11.5-14.5); WBC 4.6 10x3/uL (4.8-10.8)
[2018-10-17 10:49] VITALS: BP 139/55
[2018-10-17 11:04] LABS: ALBUMIN 3.4 g/dL (3.4-5.0); ANION GAP 12.8 mmol/L (8-16); BILIRUBIN - TOTAL 0.4 mg/dL (0.2-1.3); CALCIUM 9.1 mg/dL (8.5-10.1); CARBON DIOXIDE 24.7 mmol/L (21.0-32.0); CREATININE - SERUM 5.1 mg/dL (0.6-1.3); PHOSPHOROUS 4.3 mg/dL (2.5-4.9); POTASSIUM - SERUM 4.5 mmol/L (3.5-5.1); PROTEIN - SERUM 6.9 g/dL (6.4-8.2)
--- NOTE | 2018-10-17 15:32 | NUR ---
The patient is waking up now, he is quite confused as he is trying to put the blanket over his head. Asked him if he needed the blanket fixed and he said "Yea." Put the blanket on him and he again put the blanket on his head. Asked him again if he'd like help. He said "Yea." Put the blanket around his back and arms. He again has it over his head. He is not comprehending direction.
--- NOTE | 2018-10-17 18:09 | NUR ---
PATIENT SITTING IN RECLINER CHAIR WITH EYES CLOSED. PT WAS DROWSY MOST OF SHIFT AND THIS NURSE HELD A.M. MEDICATIONS. MED COMPLIANT. PT RECIEVE SHOWER TODAY AND TOLERATED WELL. CHAIR ALARM IN PLACE AND ACTIVE. WILL CONT PLAN OF CARE.
[2018-10-17 21:04] VITALS: BP 120/60
--- NOTE | 2018-10-17 21:46 | NUR ---
PT. REMAINS CONFUSED, COMPLIANT WITH MEDS, NEEDS HELP WITH ALL ADL'S. HAS TO HAVE CONSTANT SUPERVISION TO NOT TO FALL. WILL FOLLOW POC
--- NOTE | 2018-10-18 07:12 | NUR ---
B) The patient is awake and alert, he has poor insight into his situation. He knows his name, but nor place. He does try to keep getting up to walk and needs frequent redirection. I) Provide prescribed meds. R) The patient is compliant with meds. He has not shown any aggression this am. P) Continue POC.
[2018-10-18 09:16] VITALS: BP 109/52
--- NOTE | 2018-10-18 09:56 | NUR ---
Nutrition follow-up: Diet: regular po intake ~60% of last 9 meals Labs reviewed last wt: 149# RDN following
--- NOTE | 2018-10-18 11:45 | NUR ---
The patient spit his levaquin out.
--- NOTE | 2018-10-18 13:51 | PN ---
PATIENT:RUSSELL SCHULZ MEDICAL RECORD: [id number] LOCATION:[facility] ADMISSION DATE: 09/29/18 PROGRESS NOTE DATE OF SERVICE: 10/17/2018 SUBJECTIVE: The patient's case was discussed with staff. He has no new complaint. OBJECTIVE: The patient is sleepy. He was up through the night and agitated. He was p.r.n. to 2:00 in the morning. He slept through most of today. ASSESSMENT: No change in diagnosis. PLAN: Current medicines have been reviewed and will be maintained. Long-term prognosis is guarded. TRANSINT:[id number] Voice Confirmation ID: [id number] DOCUMENT ID: [id number] RICHARD BOYD MD at 1351 CC: [id number] DICTATION DATE: 10/17/181426 TRANSIT SPECIALIST: 10/17/18 1736 ADM IN [facility] [address] [place] [address]
[2018-10-18 20:23] VITALS: BP 145/55
--- NOTE | 2018-10-18 20:57 | NUR ---
B.) Patient is alert and oriented to self only. He continues to try to get out of chair. I.) Provide PM Medications. Redirect and Reorient. R.) Compliant with all PM medications. Despite redirection and reorientation patient remains confused. P.) Continue Plan of Care
[2018-10-19 07:02] LABS: BASOPHILS 0.5 % (0-2); EOSINOPHILS 1.1 % (0-7); HEMATOCRIT 26.3 % (42.0-54.0); HEMOGLOBIN 8.4 g/dL (13.5-17.5); IMMATURE GRANULOCYTES 0.2 % (0-5); LYMPHOCYTES 15.4 % (15-50); MCHC 31.9 g/dL (31.0-37.0); MCV 93.9 fL (80.0-100.0); MEAN PLATELET VOLUME 8.5 fL (7.4-10.4); MONOCYTES 11.3 % (2-11); NEUTROPHILS 71.5 % (40-80); PLATELET COUNT 270 10x3/uL (130-400); RDW 14.1 % (11.5-14.5)
[2018-10-19 07:04] LABS: WBC 6.4 10x3/uL (4.8-10.8)
--- NOTE | 2018-10-19 07:08 | NUR ---
B) The patient is sleeping at this time. He is calm. He has poor insight into his situation. He knows his name, but not place or time. I) Provide prescribed meds. R) The patient is compliant with meds if they are crushed. P) Continue POC.
[2018-10-19 07:30] LABS: ALBUMIN 3.2 g/dL (3.4-5.0); ANION GAP 17.4 mmol/L (8-16); BILIRUBIN - TOTAL 0.28 mg/dL (0.2-1.3); CALCIUM 9.2 mg/dL (8.5-10.1); CARBON DIOXIDE 21.8 mmol/L (21.0-32.0); PHOSPHOROUS 3.5 mg/dL (2.5-4.9); POTASSIUM - SERUM 4.2 mmol/L (3.5-5.1); PROTEIN - SERUM 7.2 g/dL (6.4-8.2)
[2018-10-19 10:25] VITALS: BP 137/56
--- NOTE | 2018-10-19 11:33 | PN ---
PATIENT:RUSSELL SCHULZ MEDICAL RECORD: [id number] LOCATION:[facility] ADMISSION DATE: 09/29/18 PROGRESS NOTE DATE OF SERVICE: 10/18/2018 SUBJECTIVE: The patient's case was discussed with staff. He has no new complaint. OBJECTIVE: The patient denies intent to harm himself or others. He is impaired cognitively and has been disruptive behaviorally. ASSESSMENT: No change in diagnoses. PLAN: Current medicines will be maintained. Long-term prognosis is guarded. TRANSINT:[id number] Voice Confirmation ID: [id number] DOCUMENT ID: [id number] RICHARD BOYD MD at 1133 CC: [id number] DICTATION DATE: 10/18/18 1512 GENERAL MAINTENANCE MECHANIC: 10/18/18 2153 ADM IN [place] [id number] [place] [address]
[2018-10-19 20:24] VITALS: BP 107/41
--- NOTE | 2018-10-19 22:21 | NUR ---
B.) PATIENTIS ALERT AND ORIENTED TO SELF. PATIENT IS RESTLESS AND ATTEMPTS TO GET OUT OF CHAIR WITHOUT ASSISTANCE. I.) PROVIDE PM MEDICATIONS. REDIRECT AND REORIENT. R.) COMPLIANT WITH MEDICATIONS. PATIENT REMAINS DISORIETNTED TO PLACE, TIME AND SITUATION. HE CONTINUES TO GET OUT OF HIS CHAIR WITHOUT ASSISTANCE DESPITE EDUCATION ON FALL RISK P.) CONTINUE PLAN OF CARE
[2018-10-20 07:00] VITALS: BP 117/69
--- NOTE | 2018-10-20 09:18 | NUR ---
RECEIVED PATIENT IN DINING ROOM FOR B'FAST, VISUAL HALLUCINATIONS NOTED BY OBSERVING PATIENT REACHING 12 INCHES FROM HIS TRAY AND ATTEMPTING TO SCOOP UNSEEN FOOD OFF THE TABLE WITH HIS SPOON. PATIENT IS QUITE CALM AND COOPERATIVE, HOWEVER. MEDS ADMIN PER ORDERS WITH COMPLETE MED COMPLIANCE NOTED. COOPERATIVE WITH POC. CONT CURRENT POC INCLUDING MEDS AND GROUP THERAPY DIRECTED.
--- NOTE | 2018-10-20 11:39 | PN ---
PATIENT:RUSSELL SCHULZ MEDICAL RECORD: [id number] LOCATION:SHAN [facility]ad[facility] ADMISSION DATE: 09/29/18 PROGRESS NOTE DATE OF SERVICE: 10/19/2018 SUBJECTIVE: The patient's case was discussed with staff. He has no new complaint. OBJECTIVE: The patient denies intent to harm himself or others. He is tolerating his medicines well. He did not sleep well last night, but is sleeping today. ASSESSMENT: No change in diagnoses. PLAN: Current medicines have been reviewed and will be maintained. TRANSINT:[id number] Voice Confirmation ID: [id number] DOCUMENT ID: [id number] RICHARD BOYD MD at 1139 CC: [id number] DICTATION DATE: 10/19/18 112 LITHOGRAPHIC ETCHER: 10/19/18 1402 ADM IN [place] [place] [address]
--- NOTE | 2018-10-20 16:43 | NUR ---
SPOUSE UNABLE TO VISIT DUE TO STORMY WEATHER, BUT DID PHONE TO CHECK ON PT.
[2018-10-20 20:14] VITALS: BP 124/46
--- NOTE | 2018-10-20 20:42 | NUR ---
Patient refused all evening medications despite multiple attempts, becoming combative with nurse.
--- NOTE | 2018-10-20 20:52 | NUR ---
RECEIVED IN DAYROOM. RESTING IN A RECLINER WITH EYES OPEN. CALM AND COOPERATIVE WITH CARE AND ASSESSMENT. CONFUSED. REDIRECT AND REORIENT NEEDED. CONTINUES TO REST QUIETLY IN RECLINER. CONTINUE PLAN OF CARE
[2018-10-21 06:20] LABS: BASOPHILS 0.4 % (0-2); EOSINOPHILS 1.3 % (0-7); HEMOGLOBIN 9.4 g/dL (13.5-17.5); LYMPHOCYTES 13.6 % (15-50); MCH 29.8 pg (26.0-34.0); MCHC 31.3 g/dL (31.0-37.0); MCV 95.2 fL (80.0-100.0); MEAN PLATELET VOLUME 8.6 fL (7.4-10.4); MONOCYTES 11.9 % (2-11); NEUTROPHILS 72.8 % (40-80); PLATELET COUNT 305 10x3/uL (130-400); RBC 3.15 10x6/uL (4.20-6.10); RDW 14.8 % (11.5-14.5); WBC 7.1 10x3/uL (4.8-10.8)
[2018-10-21 06:40] LABS: ANION GAP 17.1 mmol/L (8-16); CALCIUM 9.3 mg/dL (8.5-10.1); CARBON DIOXIDE 22.3 mmol/L (21.0-32.0); CREATININE - SERUM 5.2 mg/dL (0.6-1.3); PHOSPHOROUS 3.9 mg/dL (2.5-4.9); POTASSIUM - SERUM 4.4 mmol/L (3.5-5.1)
--- NOTE | 2018-10-21 13:24 | NUR ---
PT IS RESTING IN RECLINING CHAIR IN DAY ROOM WITH PEERS. ALERT AND ORIENTED TO PERSON. CALM AND COOPERATIVE WITH ASSESSMENT. MED COMPLIANT. PT BECOMES VERY RESTLESS AT TIMES. PT NOT SLEEPING WELL AT NIGHT PER NURSES. NO AGGRESSION NOTED AT THIS TIME. REDIRECT AND REORIENT NEEDED. FALL PRECAUTIONS IN PLACE. WILL CPOC.
--- NOTE | 2018-10-21 14:42 | PN ---
PATIENT:RUSSELL SCHULZ MEDICAL RECORD: [id number] LOCATION:[facility] ADMISSION DATE: 09/29/18 PROGRESS NOTE DATE OF SERVICE: 10/20/2018 SUBJECTIVE: The patient's case was discussed with staff. He has no new complaint. OBJECTIVE: The patient is in good behavioral control, but still not sleeping at night. ASSESSMENT: No change in diagnoses. PLAN: Current medicines have been reviewed and will be maintained. I am going to reduce the patient's medications so that he only receives it at night. Hopefully, this will help him get days and nights back in order. TRANSINT:[id number] Voice Confirmation ID: [id number] DOCUMENT ID: [id number] RICHARD BOYD MD at 1442 CC: [id number] DICTATION DATE: 10/20/18 1316 BUFFING MACHINE TENDER: 10/20/18 1651 ADM IN [place] [address] [place] [address]
[2018-10-21 20:36] VITALS: BP 110/56
--- NOTE | 2018-10-21 22:42 | NUR ---
RECEIVED IN HALLWAY. RESTING IN A RECLINER. RESTLESS AT TIMES. CALM AND COOPERATIVE WITH CARE AND ASSESSMENT. VERY CONFUSED. REDIRECT AND REORIENT NEEDED. RESTING IN RECLINER EYES OPEN AT THIS TIME. CONTINUE PLAN OF CARE
[2018-10-22 09:08] VITALS: BP 149/60
--- NOTE | 2018-10-22 14:04 | NUR ---
PATIENT IS AWAKE AND ALERT TO SELF ONLY. CALM AND COOPERATIVE WITH CARE AND ASSESSMENT. MEDICATION COMPLIANT. FALL PRECAUTIONS IN PLACE. CONTINUE PLAN OF CARE.
--- NOTE | 2018-10-22 14:30 | PN ---
PATIENT:RUSSELL SCHULZ MEDICAL RECORD: [id number] LOCATION:[facility] ADMISSION DATE: 09/29/18 PROGRESS NOTE DATE OF SERVICE: 10/21/2018 SUBJECTIVE: The patient's case was discussed with staff. He has no new complaint. OBJECTIVE: The patient is agitated, disruptive, and confused. ASSESSMENT: No change in diagnoses. PLAN: The patient has been refusing medicines. If he will take them, I have an opportunity or chance to help him. If he will not, we have to deal with that and just treat him with p.r.n. medications. Once he is stabilized. I do believe he can be reasonably transitioned to a prison. TRANSINT:[id number] Voice Confirmation ID: [id number] DOCUMENT ID: [id number] RICHARD BOYD MD at 1430 CC: [id number] DICTATION DATE: 10/21/18 1638 QUALITY ASSURANCE REPRESENTATIVE: 10/21/18 2034 ADM IN [facility] [address] [place] [id number]
[2018-10-22 19:27] VITALS: BP 108/69
--- NOTE | 2018-10-22 20:15 | NUR ---
RECEIVED IN DAYROOM. SITTING IN A CHAIR WITH PEERS AT HIS SIDE. CALM AND COOPERATIVE WITH CARE AND ASSESSMENT. CONFUSED. REDIRECT AND REORIENT NEEDED. CONTINUES TO SIT QUIETLY IN RECLINER. CONTINUE PLAN OF CARE
[2018-10-23 07:47] VITALS: BP 130/70
[2018-10-23 08:22] LABS: BASOPHILS 0.4 % (0-2); EOSINOPHILS 1.5 % (0-7); HEMATOCRIT 30.8 % (42.0-54.0); HEMOGLOBIN 9.6 g/dL (13.5-17.5); IMMATURE GRANULOCYTES 0.2 % (0-5); LYMPHOCYTES 17.5 % (15-50); MCHC 31.2 g/dL (31.0-37.0); MCV 96.3 fL (80.0-100.0); MEAN PLATELET VOLUME 8.7 fL (7.4-10.4); MONOCYTES 11.7 % (2-11); NEUTROPHILS 68.7 % (40-80); PLATELET COUNT 295 10x3/uL (130-400); RDW 15.3 % (11.5-14.5); WBC 5.4 10x3/uL (4.8-10.8)
[2018-10-23 08:24] LABS: ANION GAP 15.5 mmol/L (8-16); CALCIUM 9.3 mg/dL (8.5-10.1); CARBON DIOXIDE 22.6 mmol/L (21.0-32.0); CREATININE - SERUM 5.5 mg/dL (0.6-1.3); POTASSIUM - SERUM 4.1 mmol/L (3.5-5.1)
--- NOTE | 2018-10-23 10:00 | NUR ---
PATIENT IS AWAKE AND ALERT, WITH CONFUSION NOTED. CALM AND COOPERATIVE WITH CARE AND ASSESSMENT. MEDICATION COMPLIANT. NO AGGRESSION NOTED. FALL PRECAUTIONS IN PLACE. REDIRECT AND REORIENT NEEDED. WILL CONTINUE PLAN OF CARE.
--- NOTE | 2018-10-23 12:24 | PN ---
PATIENT:RUSSELL SCHULZ MEDICAL RECORD: [id number] LOCATION:[facility] ADMISSION DATE: 09/29/18 PROGRESS NOTE DATE OF SERVICE: 10/22/2018 SUBJECTIVE: The patient's case was discussed with staff. He has no new complaint. OBJECTIVE: The patient is in good behavioral control. He did take his medicines last night. He slept better. He is eating better. He is calmer. ASSESSMENT: Senile dementia of the Alzheimer's type with behavioral disturbances. PLAN: Current medicines have been reviewed and will be maintained. Long-term prognosis is guarded. TRANSINT:[id number] Voice Confirmation ID: [id number] DOCUMENT ID: [id number] RICHARD BOYD MD at 1224 CC: [id number] DICTATION DATE: 10/22/18 1435 THERAPY ADMINISTRATIVE ASSISTANT: 10/22/18 1444 ADM IN [place] [address] [place] [address]
--- NOTE | 2018-10-23 14:55 | NUR ---
Nutrition follow-up: Diet: Renal PO intake improved per chart review Last BM charted 10/16 Wt: 137# -> down 3# Labs reviewed RDN following.
[2018-10-23 20:00] VITALS: BP 130/83
--- NOTE | 2018-10-24 02:00 | NUR ---
B) Patient is alert and oriented to self, calmer this shift, follow instruction I) Admionistered scheduled medications crushed, monitored for safety, R) Mediation compliant, sleeping in the hallway for safety P) Continue plan of care.
[2018-10-24 09:54] VITALS: BP 121/50
--- NOTE | 2018-10-24 10:00 | NUR ---
RECEIVED PATIENT IN DINING ROOM FOR B'FAST, AWAKE, CALM, QUIET. MEDS ADMIN PER ORDERS WITH COMPLETE MED COMPLIANCE NOTED. COOPERATIVE WITH POC AND STAFF. CONT POC INCLUDING MEDS AND GROUP THERAPY DIRECTED.
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
--- NOTE | 2018-10-24 13:39 | NUR ---
Nutrition note: Participated in pt rounds today @ 1100. Diet: Renal Wt: 136# PO intake 70% average of meals 10/23/18 Last BM 10/23 RDN following.
[2018-10-24 20:00] VITALS: BP 129/46
--- NOTE | 2018-10-24 21:42 | NUR ---
B) Patient is alert and oriented to self, calm and cooperative this shift, follows instruction, I) Administered scheduled medications as ordered, monitored for safety R) Mediation compliant, no aggression noted, P) Continue plan of care.
[2018-10-25 08:30] VITALS: BP 136/69
--- NOTE | 2018-10-25 10:03 | NUR ---
B) The patient is very sleepy today. He is not opening his eyes. He is talking when staff or patients talk he answers. He can stand with assist from staff to transfer, but he does not ambulate well. I) Provide prescribed meds. R) The patient is compliant with meds. P) Continue POC.
[2018-10-25 21:46] VITALS: BP 151/39
--- NOTE | 2018-10-26 03:06 | NUR ---
B) Patient is alert at times sleeps most of the time, oriented to self, very confused, I) Administered scheduled medications as ordered, monitored for safety, patient was showered R) Mediation compliant, resting quietly in his bed P) Continue plan of care.
--- NOTE | 2018-10-26 07:25 | NUR ---
B) The patient is awake and alert this am, he is talking and trying to stand. he has his eyes open. He slept 6.75. I) Provide prescribed meds. Redirect as needed. R) The patient is oriented to his name only. P) Continue POC.
--- NOTE | 2018-10-26 10:03 | PN ---
PATIENT:RUSSELL SCHULZ MEDICAL RECORD: [id number] LOCATION:[facility] ADMISSION DATE: 09/29/18 PROGRESS NOTE DATE OF SERVICE: 10/25/2018 SUBJECTIVE: The patient's case was discussed with staff. He has no new complaint. OBJECTIVE: The patient is sedated. He was not agitated yesterday. ASSESSMENT: 1. Senile dementia of the Alzheimer's type with behavioral disturbances. 2. Psychosis, not otherwise specified. PLAN: The patient will be maintained on current medicines, which I have reviewed with the exception of the Klonopin, which I am going to hold and we will restart at a lower dose in a day or two. I think that this is probably a relative accumulation of the medicine and I think he is on the right medication to control his behavior or at least give the best balance between medications and their side effects and behavior disruption. TRANSINT:[id number] Voice Confirmation ID: [id number] DOCUMENT ID: [id number] RICHARD BOYD MD at 1003 CC: [id number] DICTATION DATE: 10/25/18 1454 PRINCIPAL STATISTICAL PROGRAMMER: 10/25/18 1546 ADM IN [facility] [address] [place] [address]
[2018-10-26 11:40] VITALS: BP 121/51
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
[2018-10-26 23:01] VITALS: BP 148/48
--- NOTE | 2018-10-27 01:12 | NUR ---
B) Patient is alert and oriented to self, keeps asking to go home, does not follow instructions, tries to stand unassisted, I) Administered scheduled medications crushed in apple sauce, , monitored for safety, redirected frequently without any effect. R) Mediation compliant, defiant and uncooperative, unable to follow even simple instructions, P) Continue plan of care.
[2018-10-27 07:00] VITALS: BP 133/56
--- NOTE | 2018-10-27 16:12 | NUR ---
PATIENT IS ALERT AND ORIENTED TO SELF. PATIENT KEEPS ASKING FOR HELP.WHEN ASKED WHAT IS WRONG PT DOES NOT RESPOND. DOES NOT FOLLOW INSTRUCTIONS. ATTEMPTS TO STAND UNASSISTED. MED COMPLIANT WITH CRUSH IN APPLE SAUCE. MONITOR FOR SAFETY. CHAIR ALARM IN PLACE AND ACTIVE. REDIRECT NEEDED. PT CAN BE UNCOOPERATIVE AND NOT ABLE TO FOLLOW INSTRUCTIONS. WILL CONT PLAN OF CARE.
--- NOTE | 2018-10-27 19:23 | NUR ---
RECEIVED IN DAYROOM, RESTING IN A RECLINER AT THE TABLE. CALM AND COOPERATIVE WITH CARE AND ASSESSMENT. REDIRECT AND REORIENT NEEDED. CONTINUES TO SIT QUIETLY. CONTINUE PLAN OF CARE
[2018-10-27 20:08] VITALS: BP 122/48
[2018-10-28 07:00] VITALS: BP 133/54
--- NOTE | 2018-10-28 07:30 | NUR ---
REC'D PT SITTING IN RECLINING CHAIR BY THE NURSES STATION. PT IS AWAKE AND ALERT TO PERSON ONLY. CALM AND COOPERATIVE WITH ASSESSMENT. REDIRECT AND REORIENT NEEDED. MED COMPLIANT. FALL PRECAUTIONS IN PLACE. WILL CPOC.
[2018-10-28 10:44] LABS: ANION GAP 14.5 mmol/L (8-16); CALCIUM 8.4 mg/dL (8.5-10.1); CARBON DIOXIDE 23.7 mmol/L (21.0-32.0); POTASSIUM - SERUM 4.2 mmol/L (3.5-5.1)
--- NOTE | 2018-10-28 15:07 | PN ---
PATIENT:RUSSELL SCHULZ MEDICAL RECORD: [id number] LOCATION:[facility] ADMISSION DATE: 09/29/18 PROGRESS NOTE DATE OF SERVICE: 10/27/2018 SUBJECTIVE: The patient's case was discussed with staff. He has no new complaint. OBJECTIVE: The patient is much more awake and alert. It is clear that the Klonopin has completely left his system. Based on a previous attempt with him being sedated and trying to do without the Klonopin, I anticipate that he will become significantly agitated soon. Based on this, I am going to start him on a low dose of Klonopin, but just at night. Hopefully, this will help with sleep consolidation without significantly interfering with his daytime alertness and behaviors. Unfortunately, this patient has been difficult to manage. He is extremely disruptive and potentially dangerous when not medicated, but finding the point at which he is medicated sufficiently without causing sedation is challenging. ASSESSMENT: No change in diagnoses. PLAN: As above. The patient will be started on a low dose of Klonopin. TRANSINT:[id number] Voice Confirmation ID: [id number] DOCUMENT ID: [id number] RICHARD BOYD MD at 1507 CC: [id number] DICTATION DATE: 10/27/18 1231 MANAGING DIRECTOR ATLAS: 10/27/18 1520 [place] [address]
--- NOTE | 2018-10-28 21:37 | NUR ---
B.) Patient is asleep in sheldon chair. I.) Provide PM medications. R.) Compliant with medications. P.) Continue Plan of Care
[2018-10-29 07:00] VITALS: BP 197/68
--- NOTE | 2018-10-29 15:05 | NUR ---
PT IS ALERT TO PERSON ONLY. PT IS RESTING IN RECLINING CHAIR AT THIS TIME. CALM AND COOPERATIVE WITH ASSESSMENT. MED COMPLIANT. NO AGGRESSION NOTED. REDIRECT AND REORIENT NEEDED. FALL PRECAUTIONS IN PLACE. WILL CPOC.
[2018-10-29] MEDS ORDERED: Aricept PO (15:53)
[2018-10-29] MEDS ORDERED: NIFEREX-150 CAP1 CA3 PO (15:53)
[2018-10-29] MEDS ORDERED: Retacrit SC (15:53)
[2018-10-29] MEDS ORDERED: GEODON20 MG PO (15:54)
[2018-10-29] MEDS ORDERED: LINZESS145 MCG PO (15:56)
[2018-10-29] MEDS ORDERED: KLONOPIN0.5 MG PO (15:56)
--- NOTE | 2018-10-29 19:50 | NUR ---
RECEIVED IN HALLWAY OUTSIDE OF NURSES STATION. SITTING IN A RECLINING CHAIR. CALM AND COOPERATIVE WITH CARE AND ASSESSMENT. REDIRECT AND REORIENT NEEDED. CONTINUES TO SIT QUIETLY. CONTINUE PLAN OF CARE
[2018-10-29 20:00] VITALS: BP 139/51
--- NOTE | 2018-10-30 03:30 | NUR ---
SW NOTE FROM 10/29. SW INFORMED OF PT DISCHARGING TO [facility] ON 10/30. MRS. SCHULZ VERBALIZED UNDERSTANDING OF PT'S CONDITION AND DISCHARGE PLANS.
[2018-10-30 05:58] LABS: BASOPHILS 0.3 % (0-2); EOSINOPHILS 2.5 % (0-7); HEMATOCRIT 30.8 % (42.0-54.0); HEMOGLOBIN 9.6 g/dL (13.5-17.5); LYMPHOCYTES 13.9 % (15-50); MCH 29.1 pg (26.0-34.0); MCHC 31.2 g/dL (31.0-37.0); MCV 93.3 fL (80.0-100.0); MEAN PLATELET VOLUME 8.3 fL (7.4-10.4); MONOCYTES 14.1 % (2-11); NEUTROPHILS 69.2 % (40-80); PLATELET COUNT 251 10x3/uL (130-400); RDW 15.5 % (11.5-14.5); WBC 6.5 10x3/uL (4.8-10.8)
[2018-10-30 09:39] VITALS: BP 125/52
--- NOTE | 2018-10-30 10:00 | NUR ---
RECEIVED PATINET IN DINING ROOM FOR B'FAST, ALERT, CALM, COOPERATIVE. MEDS ADMIN PER ORDERS WITH COMPLETE MED COMPLIANCE NOTED. COOPERATIVE WITH PLAN OF CARE AND STAFF SUGGESTIONS. PATIENT TO DISCHARGE THIS SHIFT.
--- NOTE | 2018-10-30 15:16 | PN ---
PATIENT:RUSSELL SCHULZ MEDICAL RECORD: [id number] LOCATION:[facility] ADMISSION DATE: 09/29/18 PROGRESS NOTE DATE OF SERVICE: 10/29/2018 SUBJECTIVE: The patient's case was discussed with staff. He has no new complaint. OBJECTIVE: The patient slept almost 5 hours last night. He ate about half of the food that was presented to him. ASSESSMENT: No change in diagnoses. PLAN: The patient is currently at maximum hospital benefit. After a month of adjusting medicines up and down, I think I have arrived at the best balance between controlling his aggressive behavior and medication side effects. He has very limited insight about his condition, but he certainly is not dangerous. I do plan on transitioning him out of the hospital tomorrow. TRANSINT:[id number] Voice Confirmation ID: [id number] DOCUMENT ID: [id number] RICHARD BOYD MD at 1516 CC: [id number] DICTATION DATE: 10/29/18 1552 EXPLOSIVE ORDNANCE TECHNICIAN: 10/29/18 1644 ADM IN [id number] [place] [address]
--- NOTE | 2018-10-31 13:45 | DS ---
PATIENT:RUSSELL SCHULZ :31 MEDICAL RECORD: [id number] DISCHARGE SUMMARY ADMISSION DATE: 09/29/18 DISCHARGE DATE: 10/30/18 IDENTIFYING DATA: The patient is 82 years old and he was admitted to the hospital on a voluntary basis because of confusion. The patient had recently been admitted to the hospital secondary to confusion and while hospitalized he had pulled his IV out, was agitated, and required a Kimball bed to contain him. He did have a urinary tract infection and was dehydrated, but even after that was corrected, he was aggressive and confused. For this reason, he was hospitalized on the behavioral unit for a full evaluation. HOSPITAL COURSE: The patient was admitted to the hospital behavioral unit and fully evaluated from both a medical, psychological, and social standpoint. The patient clearly had a dementia and it was clearly advanced. The disruptive aggressive behaviors were related to the advanced nature of the dementia. Various medications and combinations of medications were tried and retried in an effort to bring his behaviors under control and not make him excessively sedated. It was clear his was unable to care for him at home and reluctantly she agreed to custodial placement. Again, there was difficulty adjusting his medicines and finally there was a reasonable balance between the risk:benefit and the patient was subsequently transitioned out of the hospital. DISCHARGE DIAGNOSES: AXIS I: Senile dementia of the Alzheimer's type with behavioral disturbances. AXIS II: None. AXIS III: Hypertension, chronic renal disease, dehydration, and urinary tract infection. AXIS IV: Moderate. AXIS V: Global assessment of functioning is 30. PLAN: At the time of discharge, the patient was in good behavioral control and had no evidence of acute or direct dangerousness to himself or others. He was tolerating his medications well and followup is to be with his primary care custodial physician. TRANSINT:[id number] Voice Confirmation ID: [id number] DOCUMENT ID: [id number] RICHARD BOYD MD at 1345 CC: [id number] DICTATION DATE: 10/30/18 1601 OPEN HEARTH FURNACE OPERATOR HELPER: 10/31/18 0029 DIS IN 10/30/18 [facility] [address] [place] [address]
== END 2018-10-30 12:05 | DRG 57 ==
LOC: D.PSYCH 15:01
PROVIDERS: Family Medicine; Internal Medicine; Internal Medicine Nephrology; ADMIT Psychiatry & Neurology Psychiatry; ATTEND Psychiatry & Neurology Psychiatry
DX: G30.1 Alzheimer's disease with late onset (principal); F02.81 Dementia in other diseases classified elsewhere, unspecified severity, with behavioral disturbance; E87.2 Acidosis; N39.0 Urinary tract infection, site not specified; I12.9 Hypertensive chronic kidney disease with stage 1 through stage 4 chronic kidney disease, or unspecified chronic kidney disease; N18.3 Chronic kidney disease, stage 3 (moderate); E55.9 Vitamin D deficiency, unspecified; K59.00 Constipation, unspecified; D63.1 Anemia in chronic kidney disease; E78.5 Hyperlipidemia, unspecified; R73.9 Hyperglycemia, unspecified

== ENCOUNTER 2018-12-13 14:19 | Inpatient (IN) | payer MEDICARE ==
[~2018-12-13] VITALS: Ht 185.4 cm; Wt 56.1 kg
[~2018-12-13 14:19] MED LIST changes: +Aricept PO; +GEODON20 MG PO; +KLONOPIN0.5 MG PO; +NIFEREX-150 CAP1 CA3 PO; +Retacrit SC
[2018-12-13] MEDS ORDERED: KLONOPIN0.5 MG PO (15:03)
[2018-12-13] MEDS ORDERED: ZOLOFT50 MG PO (15:09)
[2018-12-13 16:03] VITALS: BP 143/72; BMI 22.2
[2018-12-13 16:09] LABS: BASOPHILS 0.7 % (0-2); EOSINOPHILS 4.4 % (0-7); HEMATOCRIT 30.5 % (42.0-54.0); HEMOGLOBIN 9.5 g/dL (13.5-17.5); LYMPHOCYTES 26.1 % (15-50); MCH 26.8 pg (26.0-34.0); MCHC 31.1 g/dL (31.0-37.0); MCV 86.2 fL (80.0-100.0); MEAN PLATELET VOLUME 8.6 fL (7.4-10.4); MONOCYTES 12.6 % (2-11); NEUTROPHILS 56.2 % (40-80); PLATELET COUNT 333 10x3/uL (130-400); RBC 3.54 10x6/uL (4.20-6.10); WBC 5.5 10x3/uL (4.8-10.8)
[2018-12-13 16:57] LABS: ALBUMIN 2.9 g/dL (3.4-5.0); ANION GAP 17.8 mmol/L (8-16); BILIRUBIN - TOTAL 0.3 mg/dL (0.2-1.3); CALCIUM 7.9 mg/dL (8.5-10.1); CARBON DIOXIDE 19.8 mmol/L (21.0-32.0); CHOL - HDL RATIO 2.3 ratio (2.3-4.9); CREATININE - SERUM 5.2 mg/dL (0.6-1.3); LDL-HDL RATIO 1.2 ratio (1.5-3.5); POTASSIUM - SERUM 5.6 mmol/L (3.5-5.1); PROTEIN - SERUM 6.5 g/dL (6.4-8.2); THYROID STIMULATING HORMONE 2.38 uIU/mL (0.36-3.74)
--- NOTE | 2018-12-13 16:59 | NUR ---
PATIENT ARRIVED TO UNIT VIA EMS AT 1540. PT CALM AT TIME OF ADMISSION. PT GAVE VERBAL CONSENT [place] SCHULZ FOR ADMISSION. NURSE CALLED AT 1402 TO CONFIRM PERMISSION FOR ADMISSION. CODEWORD GIVEN: LAURA. PATIENT HAS DEMENTIA AND WAS HAVING BEHAVIORS AT THE INTERMEDIATE. PATIENT WEIGHT, ADMISSION, VITALS SIGNS OBTAINED. PATIENT HAS A FISTULA IN RIGHT ARM. THRILL AND BRUIT HEARD AND FELT. VITAL SIGNS: B/P: 143/72, P: 72, R: 17, T: 97.5 AND O2 SAT: 96%. ADMISSION WEIGHT: 168.2 LBS PER WHEELCHAIR SCALE. CODE STATUS: FILL CODE. PATIENT IS A MAX ASSIST. PT/OT CONSENT ORDERED. CHAIR ALARM IN PLACE, NONSKID SOCKS APPLIED, AND ARMBAND ON.
[2018-12-13 20:00] VITALS: BP 113/65
--- NOTE | 2018-12-14 04:13 | NUR ---
B) Patient is alert and oriented to self, very confused and restless, exit seeking, resistant to redirection, intrusive with other patients, trying to go into other patients rooms, I) Administered scheduled medications as ordered, PRN Ativan 0.5 mg and Haldol 2 mg IM given for agitation and anxiety R) Mediation compliant, patient now able to rest in bed, P) Continue plan of care.
--- NOTE | 2018-12-14 09:40 | NUR ---
RECEIVED PATIENT IN DINING ROOM FOR B'FAST, ALERT, RESTLESS, DIFFICULTY WITH DIRECTION. MEDS ADMIN PER ORDERS WITH COMPLETE MED COMPLIANCE NOTED. IMPATIENT AT TIMES. CONT POC DIRECTED.
--- NOTE | 2018-12-14 09:43 | NUR ---
CURSING STAFF, THREATENING TO HIT STAFF.
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
[2018-12-14 20:16] VITALS: BP 146/62
--- NOTE | 2018-12-14 23:05 | NUR ---
B.) PT IS ALERT AND ORIENTED TO SELF ONLY. HIS ATTITUDE ALTERNATES QUICKLY FROM CALM TO AGGRESSIVE AND COMBATIVE. I.) PROVIDED PM MEDICATIONS. REDIRECT OFTEN. R.) COMPLIANT WITH ALL MEDICATIONS. PT REMAINS CONFUSED DESPITE MULTIPLE ATTEMPTS TO REDIRECT. P.)CONTINUE PLAN OF CARE
[2018-12-15 00:27] LABS: APPEARANCE HAZY (CLEAR); BILIRUBIN NEGATIVE (NEGATIVE); COLOR YELLOW (YELLOW); GLUCOSE NEGATIVE (NEGATIVE); KETONE NEGATIVE (NEGATIVE); NITRITE NEGATIVE (NEGATIVE); PROTEIN TRACE mg/dL (NEGATIVE); RED CELLS - URINE 0-5 /hpf (0-5); UROBILINOGEN NORMAL (NORMAL); WHITE CELLS - URINE NSEEN /hpf (0-5)
[2018-12-15 07:00] VITALS: BP 138/58
--- NOTE | 2018-12-15 16:29 | NUR ---
RECEIVED PT IN DINING ROOM AT B'FAST TIME, ALERT, QUITE CONFUSED, APPETITE GOOD, MEDS ADMIN PER ORDERS WITH COMPLETE MED COMPLIANCE NOTED, COOPERATIVE WITH STAFF. CONT POC DIRECTED.
--- NOTE | 2018-12-15 17:43 | NUR ---
DR BOYD NOTIFIED AND SITTER ORDERED. SITTER AT BEDSIDE. NOTIFIED CHARGE NURSE AND ATTENDING IN REGARDS TO ASSESSMENT FINDINGS. RESOURCES GIVEN TO PATIENT AND SAFETY PLAN INITIATED.
[2018-12-15 20:00] VITALS: BP 166/83
--- NOTE | 2018-12-15 22:20 | NUR ---
RECEIVED DAYROOM. SITTING IN A RECLINER AT TABLE. RESTLESS AT TIMES. COOPERATIVE WITH ASSESSMENT. ASSIST TO BED. VERY RESTLESS ATTEMPTS TO STAND WITHOUT ASSIST. ALCIRA ALARM SOUNDING. VERY CONFUSED. TRANSFERE TO RECLINER IN HALLWAY FOR SAFETY. REDIRECT AND REORIENT NEEDED. CONTINUES PLAN OF CARE
[2018-12-16 08:00] VITALS: BP 173/76
--- NOTE | 2018-12-16 10:16 | PN ---
PATIENT:RUSSELL SCHULZ MEDICAL RECORD: [id number] LOCATION:[facility] ADMISSION DATE: 12/13/18 PROGRESS NOTE DATE OF SERVICE: 12/14/2018 SUBJECTIVE: The patient's case was discussed with staff. He has no new complaint. OBJECTIVE: The patient denies intent to harm himself or others. He was significantly and seriously agitated last night and required p.r.n. medication for this agitation. ASSESSMENT: No change in diagnoses. PLAN: The patient will be treated with Geodon at a slightly higher dose. His long-term prognosis is guarded. Both supportive and educational interventions were made. TRANSINT:[id number] Voice Confirmation ID: [id number] DOCUMENT ID: [id number] RICHARD BOYD MD at 1016 CC: [id number] DICTATION DATE: 12/14/18 1228 COUNTY HOME DEMONSTRATION AGENT: 12/14/18 1238 ADM IN [place] [place] [address]
--- NOTE | 2018-12-16 10:16 | PN ---
PATIENT:RUSSELL SCHLUZ MEDICAL RECORD: [id number] LOCATION:[facility] ADMISSION DATE: 12/13/18 PROGRESS NOTE DATE OF SERVICE: 12/15/2018 SUBJECTIVE: The patient's case was discussed with staff. He has no new complaint. OBJECTIVE: The patient is in good behavioral control with limited insight about his condition. He tolerates his medicines well. ASSESSMENT: No change in diagnoses. PLAN: Brief supportive and educational interventions were made. Long-term prognosis is guarded. TRANSINT:[id number] Voice Confirmation ID: [id number] DOCUMENT ID: [id number] RICHARD BOYD MD at 1016 CC: [id number] DICTATION DATE: 12/15/18912 ASSISTIVE TECHNOLOGY TRAINER: 12/15/18 1013 ADM IN [address] [address]
[2018-12-16 10:37] VITALS: Ht 185.4 cm; Wt 56.1 kg
--- NOTE | 2018-12-16 17:01 | NUR ---
PATIENT WAS NON-COMPLIANT WITH MEDS TODAY. VERY CONFUSED, SLEPT MOST OF THE DAY DESPITE ATTEMPTS TO KEEP HIM AWAKE AND ACTIVE. AWOKE FOR LUNCH BUT MOSTLY PLAYED IN HIS FOOD MAKING A MESS ON HIS CLOTHING AND TABLE. CONT POC.
--- NOTE | 2018-12-16 21:59 | NUR ---
REC'D LYING IN BED WITH EYES CLOSED. AROUSED TO VERBAL STIMULI. POOR EYE CONTACT. DOES NOT FOLLOW TOPIC OF CONVERSATION. ARGUMENTATIVE. ADMINISTER MEDS PER ORDERS Q SHIFT AND MONITOR COMPLIANCE, REDIRECT FOR UNCOOPERATIVE AND ARGUMENTATIVE BEHAVIOR. MED COMPLIANT. OBSERVED TRYING TO GET OUT OF BED UNASSISTED. RELATED HE HAD TO GO TO THE BATHROOM BUT REFUSED HELP FROM NURSE. TWO STAFF MEMBERS ASSISTED TO BATHROOM THEN WOULD NOT COOPERATE WITH GETTING UP AND GOING TO BED. ASSISTED TO CHAIR BY TWO STAFF MEMBERS. CONTINUES TO NOT FOLLOW INSTRUCTIONS AND REMAINS ARGUMENTATIVE. CONTINUE POC AND PROVIDE SAFE ENVIRONMENT.
[2018-12-17 00:24] VITALS: BP 130/85
[2018-12-17 08:19] VITALS: BP 146/81
--- NOTE | 2018-12-17 11:00 | NUR ---
PATIENT IS AWAKE AND ORIENTED TO SELF ONLY. HE IS NOT VERY TALKATIVE TODAY. AND TAKING SEVERAL NAPS. CALM AND COPERATIVE WITH ASSESSMENT AND CARE INCLUDING A SHOWER. COMPLIANT WITH TAKIN MEDICATIONS CRUSHED IN APPLESAUCE. FALL PRECAUTIONS IN PLACE. CONTINUE POC AND MONITOR FOR CHANGES.
--- NOTE | 2018-12-17 15:20 | PN ---
PATIENT:RUSSELL SCHULZ MEDICAL RECORD: [id number] LOCATION:[facility]oly[facility] ADMISSION DATE: 12/13/18 PROGRESS NOTE DATE OF SERVICE: 12/16/2018 SUBJECTIVE: The patient's case was discussed with staff. He has no new complaint. OBJECTIVE: The patient is in good behavioral control. He has very limited insight about his condition. He does tolerate his medicines well. ASSESSMENT: No change in diagnoses. PLAN: Brief supportive and educational interventions were made. Long-term prognosis is guarded. I am going to treat him with trazodone to assist with sleep consolidation. TRANSINT:[id number] Voice Confirmation ID: [id number] DOCUMENT ID: [id number] RICHARD BOYD MD at 1520 CC: [id number] DICTATION DATE: 12/16/18 1215 GASOLINE SERVICE ATTENDANT: 12/16/18 1229 ADM IN [place] [id number] [place] [address]
--- NOTE | 2018-12-17 19:52 | NUR ---
RECEIVED IN DAYROOM. RESTING QUIETLY IN A RECLINER WITH EYES CLOSED. RESPONDS TO TOUCH. CALM AND COOPERATIVE WITH CARE AND ASSESSMENT. NO SIGNS OF AGGRESSION. REDIRECT AND REORIENT NEEDED. CONTINUES TO SIT QUIETLY WITH EYES CLOSED. CONTINUE PLAN OF CARE.
[2018-12-17 20:21] VITALS: BP 150/84
[2018-12-18 08:34] VITALS: BP 105/66
--- NOTE | 2018-12-18 09:37 | NUR ---
PT AM MEDS ADMINISTERED CRUSHED IN PUDDING. PT SITTING UP IN DAY ROOM AT THIS TIME. ALE.
--- NOTE | 2018-12-18 15:25 | PN ---
PATIENT:RUSSELL SCHULZ MEDICAL RECORD: [id number] LOCATION:[facility] ADMISSION DATE: 12/13/18 PROGRESS NOTE DATE OF SERVICE: 12/17/2018 SUBJECTIVE: The patient's case was discussed with staff. He has no new complaint. OBJECTIVE: The patient is significantly agitated and difficult to redirect. He has very limited insight about his condition. He is not eating well. ASSESSMENT: No change in diagnoses. PLAN: The patient will be given Megace to assist with appetite enhancement. His long-term prognosis is guarded. TRANSINT:[id number] Voice Confirmation ID: [id number] DOCUMENT ID: [id number] RICHARD BOYD MD at 1525 CC: [id number] DICTATION DATE: 12/17/18 1526 RIDING SILKS CUSTODIAN: 12/17/18 1631 ADM IN [facility] [address] [place] [address]
[2018-12-18 20:00] VITALS: BP 146/53
--- NOTE | 2018-12-19 00:49 | NUR ---
B) Patient is alert and oriented to self, responds to name, unable to be redirected, restless and anxious at times, I) Administered scheduled medications as ordered, monitored for safety, close observation due to high fall risk, R) Mediation compliant, sleeping at times in gerichair in hallway, P) Continue plan of care.
[2018-12-19 10:38] VITALS: BP 158/74
--- NOTE | 2018-12-19 11:46 | NUR ---
PATIENT SITTING IN CHAIR WITH EYES CLOSED. RESP EVEN AND NONLABORED. NO ACUTE DISTRESS NOTED. PT IS ALERT, CONFUSED AND ORIENTED TO SELF. PT IS RESTLESS, ANXIOUS AT TIMES. UNABLE TO REDIRECT PATIENT. PT IS MED COMPLIANT. MONITOR CLOSELY FOR SAFETY. WILL CONT PLAN OF CARE.
--- NOTE | 2018-12-19 12:30 | NUR ---
TEAM TREATMENT REVIEW: DIET: Renal diet; Nepro w/ meals PO INTAKE: 11% x 9 meals BM: x 1 on 12/18 WT: 12/13-168lbs, 12/16-173lbs MEDS: Megace, protonix, sodium bicarbonate LABS: K- 5.6(H), Chloride-111(H), BUN-69(H), Cr-5.2(H), Calcium-7.9(L), Vit D-21.8(L) GOALS: PO intake >/= 75%, BM q 3 days, labs WNL Will continue to monitor closely Clinical Dietitian following
--- NOTE | 2018-12-19 15:07 | PN ---
PATIENT:RUSSELL SCHULZ MEDICAL RECORD: [id number] LOCATION:[facility] ADMISSION DATE: 12/13/18 PROGRESS NOTE DATE OF SERVICE: 12/18/2018 SUBJECTIVE: The patient's case was discussed with staff. He has no new complaint. OBJECTIVE: The patient is not eating. He has been prescribed Megace. He is extremely restless and agitated and difficult to redirect. I have started him on a scheduled dose of Klonopin and Zyprexa to assist with his restlessness. Unfortunately, he is not consistent in taking his medications. ASSESSMENT: Dementia. PLAN: The patient is in stage with his illness and efforts will be made to calm him and make him more comfortable and certainly more manageable in a long-term care setting. I think that his condition has declined significantly since he was here previously and I would recommend comfort care measures and/or hospice as an appropriate disposition once treatment here is completed. TRANSINT:[id number] Voice Confirmation ID: [id number] DOCUMENT ID: [id number] RICHARD BOYD MD at 1507 CC: [id number] DICTATION DATE: 12/18/18 1605 RESPIRATORY CARE FACULTY: 12/18/18 2306 ADM IN [facility] [address] [place] [address]
--- NOTE | 2018-12-19 18:09 | NUR ---
PATIENT ATE SMALL AMOUNTS AT SOME MEALS BUT REFUSED TO EAT DINNER.
[2018-12-19 20:14] VITALS: BP 130/75
--- NOTE | 2018-12-19 23:36 | NUR ---
REC'D PATIENT SITTING IN THE DAYROOM WITH EYES CLOSED. NOT COOPERATIVE WITH VS. PULLS CLOTHES OFF IN THE DAYROOM. ARGUES WITH STAFF AND DOES NOT FOLLOW VERBAL INSTRUCTIONS. ADMINISTER MEDS PER ORDERS Q SHIFT AND MONITOR COMPLIANCE. REDIRECT FOR INAPPROPRIATE BEHAVIOR. REFUSED MEDS. POOR REDIRECTION D/T IMPAIRED ABILITY TO PROCESS INFORMATION. IMPAIRED ABILITY TO SEPARATE REALITY FROM FANTASY. CONTINUE POC AND PROVIDE SAFE ENVIRONMENT.
--- NOTE | 2018-12-20 07:57 | NUR ---
REC'D PT SITTING IN CHAIR BY NURSES STATION. PT IS STRIPPING OFF CLOTHES AND TALKING TO HIMSELF. PT IS ALERT AND ORIENTED TO SELF. PT DID NOT SLEEP WELL ONLY 2.25 HOURS. UNABLE TO REDIRECT PATIENT. CHAIR ALARM IN PLACE AND ACTIVE. WILL ATTEMPT TO REDRESS WHILE WAITING BREAKFAST. WILL CONT PLAN OF CARE.
[2018-12-20 08:43] VITALS: BP 168/75
[2018-12-20 09:15] VITALS: BP 160/56
--- NOTE | 2018-12-20 16:02 | PN ---
PATIENT:RUSSELL SCHULZ MEDICAL RECORD: [id number] LOCATION:[facility]key112 ADMISSION DATE: 12/13/18 PROGRESS NOTE DATE OF SERVICE: 12/19/2018 SUBJECTIVE: The patient's case was discussed with staff. He has no new complaint. OBJECTIVE: The patient's oral intake is poor. He has limited insight about his situation. He is difficult to redirect at times and displays a high level of confusion, being only oriented to person. ASSESSMENT: Dementia. PLAN: The patient will be treated with current medicines. I am going to give him something to assist with sleep consolidation. The effort will be not to make him too sedated during the day. TRANSINT:[id number] Voice Confirmation ID: [id number] DOCUMENT ID: [id number] RICHARD BOYD MD at 1602 CC: [id number] DICTATION DATE: 12/19/18 1526 LABELING SPECIALIST: 12/19/18 2253 ADM IN [place] [address] [place] [address]
--- NOTE | 2018-12-20 19:53 | NUR ---
PATIENT IS CONFUSED AND HAS TO RELY ON STAFF FOR ALL NEEDS. NON-COMPLIANT WITH MEDS AT THIS TIME. AGITATED. CAN NOT MAKE NEEDS KNOWN, WILL FOLLOW POC
[2018-12-20 20:17] VITALS: BP 172/78
[2018-12-21 07:30] VITALS: BP 166/92
--- NOTE | 2018-12-21 12:44 | PN ---
PATIENT:RUSSELL SCHULZ MEDICAL RECORD: [id number] LOCATION:[facility] Fleming ADMISSION DATE: 12/13/18 PROGRESS NOTE DATE OF SERVICE: 12/20/2018 SUBJECTIVE: The patient's case was discussed with staff. He has no new complaint. OBJECTIVE: The patient is in good behavioral control with limited insight about his condition. He tolerates his medicines well. ASSESSMENT: Dementia. PLAN: Current medicines have been reviewed. He is not taking them consistently. His dementia is advanced and I am going to have him referred to hospice as well after discussion with his family. TRANSINT:[id number] Voice Confirmation ID: [id number] DOCUMENT ID: [id number] RICHARD BOYD MD at 1244 CC: [id number] DICTATION DATE: 12/20/18 1605 SENIOR MAINFRAME DEVELOPER: 12/20/18 191 ADM IN [facility] [address] [place] [id number]
--- NOTE | 2018-12-21 14:29 | NUR ---
PATIENT IS VERY CONFUSED, ALERT ONLY TO SELF. DOES NOT MAKE NEEDS KNOWN. REFUSES TO EAT AND DRINK AT TIMES. MAX ASSISTANCE WITH ADLS. PT REFUSED MEDICAITIONS AT TIMES. ENCOURAGEMENT GIVEN AT TIMES TO EAT AND TAKE MEDICAITONS. CHAIR ALARM IN PLACE.
--- NOTE | 2018-12-21 19:30 | NUR ---
PATIENT SITTING IN THE DAYROOM. CONFUSED AND DISORIENTED. STILL PULLS CLOTHES OFF. WILL CALL FOR MOMMA. NO INSIGHT INTO ILLNESS. ADMINISTER MEDS PER ORDERS Q SHIFT AND MONITOR COMPLIANCE. REDIRECT FOR PULLING CLOTHES OFF. MED COMPLIANT. DOES NOT FOLLOW VERBAL INSTRUCTION. UNABLE TO PROCESS INFORMATION DUE TO COGNITIVE IMPAIRMENT. CONTINUE POC AND PROVIDE SAFE ENVIRONMENT,
[2018-12-21 20:00] VITALS: BP 126/61
[2018-12-22 08:09] VITALS: BP 159/63
--- NOTE | 2018-12-22 11:29 | PN ---
PATIENT:RUSSELL SCHULZ MEDICAL RECORD: [id number] LOCATION:[facility]key112 ADMISSION DATE: 12/13/18 PROGRESS NOTE DATE OF SERVICE: 12/21/2018 SUBJECTIVE: The patient's case was discussed with staff. He has no new complaint. OBJECTIVE: The patient is not taking his medicines. He is not eating and not sleeping. He is disorganized, but has not been overtly combative. ASSESSMENT: Dementia. PLAN: The patient's condition is grave. His dementia is end-stage and I think it is appropriate to provide comfort care measures to him. TRANSINT:[id number] Voice Confirmation ID: [id number] DOCUMENT ID: [id number] RICHARD BOYD MD at 1129 CC: [id number] DICTATION DATE: 12/21/18 1310 CAREER CENTER DIRECTOR: 12/21/18 1349 ADM IN [place] [id number] [place] [address]
--- NOTE | 2018-12-22 14:07 | NUR ---
B) The patient is very sleepy today, he awakened for breakfast but not lunch. He is not showing aggression today or being argumentative, but he remains sleepy. I) Provide prescribed meds. R) The patient is compliant with meds. P) Continue POC.
[2018-12-22 20:00] VITALS: BP 113/61
--- NOTE | 2018-12-22 20:33 | NUR ---
RECEIVED IN DAYROOM. SITTING IN A RECLINING CHAIR WITH PEERS AT HIS SIDE. CONFUSED. CALM AND COOPERATIVE WITH CARE AND ASSESSMENT. NO SIGNS OF AGGRESSION. REDIRECT AND REORIENT NEEDED. CONTINUES TO SIT IN RECLINER. CONTINUE PLAN OF CARE
[2018-12-23 08:00] VITALS: BP 122/60
--- NOTE | 2018-12-23 09:44 | NUR ---
RECEIVED PT IN DINING ROOM, ALERT, CALM, CONFUSED, APPETITE POOR EATING ONLY A FEW BITES. MEDS ADMIN PER ORDERS WIHT COMPLETE COMPLIANCE NOTED. COOPERATIVE WITH STAFF. CONT POC DIRECTED.
--- NOTE | 2018-12-23 15:00 | PN ---
PATIENT:RUSSELL SCHULZ MEDICAL RECORD: [id number] LOCATION:[facility] ADMISSION DATE: 12/13/18 PROGRESS NOTE DATE OF SERVICE: 12/22/2018 SUBJECTIVE: The patient's case was discussed with staff. He has no new complaint. OBJECTIVE: The patient is eating significantly better. He still agitated at times, but has improved. ASSESSMENT: Dementia. PLAN: Current medicines have been reviewed and will be maintained. Long-term prognosis is guarded. TRANSINT:[id number] Voice Confirmation ID: [id number] DOCUMENT ID: [id number] RICHARD BOYD MD at 1500 CC: [id number] DICTATION DATE: 12/22/18 1132 KICK BOXER: 12/22/18 1233 ADM IN [place] [address] [place] [address]
[2018-12-23 20:20] VITALS: BP 140/80
--- NOTE | 2018-12-23 21:06 | NUR ---
RECEIVED IN DAYROOM. SITTING IN A RECLINER AT THE TABLE WITH PEERS. CALM AND COOPERATIVE WITH CARE AND ASSESSMENT. NO SIGNS OF AGGRESSION. REDIRECT AND REORIENT NEEDED. CONTINUES TO SIT QUIETLY. CONTINUE PLAN OF CARE
[2018-12-24 08:00] VITALS: BP 190/94
--- NOTE | 2018-12-24 09:24 | PN ---
PATIENT:RUSSELL SCHULZ MEDICAL RECORD: [id number] LOCATION:[facility]AN [facility]iyad112 ADMISSION DATE: 12/13/18 PROGRESS NOTE DATE OF SERVICE: 12/23/2018 SUBJECTIVE: The patient's case was discussed with staff. He has no new complaint. OBJECTIVE: The patient has no thoughts of harming himself or others. He is severely impaired. Hospice has accepted him. Once a half-way placement is arranged, I think he is probably reasonable to discharge soon. TRANSINT:[id number] Voice Confirmation ID: [id number] DOCUMENT ID: [id number] RICHARD BOYD MD at 0924 CC: [id number] DICTATION DATE: 12/23/18 1607 PUBLIC INFORMATION RELATIONS MANAGER: 12/23/182024 ADM IN [place] [address] [place] [address]
--- NOTE | 2018-12-24 11:43 | NUR ---
RECEIVED PT IN DINING ROOM FOR B'FAST, DROWSY, AROUSES TO TOUCH AND VERBAL STIMULI. MEDS ADMINISTERED PER ORDERS. PT APPETITE CONT TO BE POOR. NO BEHAVIORAL ISSUES.
--- NOTE | 2018-12-24 14:50 | NUR ---
Nutrition Follow-up: Diet: Cardiac/Renal PO intake: 30% average x last 9 meals, 0% yesterday. Wt: 138# (12/22/18)- question accuracy of recorded weight?; Admit wt: 168# (12/13/18) Last BM 12/21/18 Labs noted, meds reviewed Consider liberalizing diet to encourage PO intake. If EN needed recommend start continuous TF: Suplena @ 20mL/hr, check residuals per protocol every 6hrs, if residuals <150mL increase by 10mL/hr every 6hrs until reaching goal rate @ 45mL/hr. H2O goal flush @ 45mL/hr (or per MD). RD Following
--- NOTE | 2018-12-24 20:47 | NUR ---
RECEIVED IN DAYROOM. SITTING IN A CHAIR AT THE TABLE WITH PEERS AT HIS SIDE. RESTING QUIETLY WITH EYES CLOSED. CALM AND COOPERATIVE WITH CARE AND ASSESSMENT. NO SIGNS OF AGGRESSION. REDIRECT AND REORIENT NEEDED. CONTINUES TO REST QUIETLY. CONTINUE PLAN OF CARE
[2018-12-24 21:49] VITALS: BP 121/78
--- NOTE | 2018-12-25 09:33 | NUR ---
STAFF ATTEMPTING MULTIPLE TIMES TO GET PT TO EAT BUT HE IS VERY SLEEPY AND TOLD STAFF NO. WILL REVIEW MEDICATIONS WITH DR. BOYD TO SEE IF ADJUSTMENTS NEED TO BE MADE.
[2018-12-25 10:00] VITALS: BP 132/62
--- NOTE | 2018-12-25 11:11 | NUR ---
RECEIVED POT IN DINING ROOM FOR B'FAST, ALERT, CALM, COOPERATIVE. NO BEHAVIORAL ISSUES. MEDS ADMIN PER ORDERS WITH COMPLETE MED COMPLIANCE NOTED. CONT VERY CONFUSED. CONT POC DIRECTED.
--- NOTE | 2018-12-25 11:37 | NUR ---
SPOUSE CALLED TO CHECK ON PATIENT.
[2018-12-25 14:47] LABS: BASOPHILS 0.6 % (0-2); HEMATOCRIT 38.5 % (42.0-54.0); HEMOGLOBIN 11.9 g/dL (13.5-17.5); LYMPHOCYTES 10.9 % (15-50); MCH 26.6 pg (26.0-34.0); MCHC 30.9 g/dL (31.0-37.0); MCV 86.1 fL (80.0-100.0); MEAN PLATELET VOLUME 9.1 fL (7.4-10.4); MONOCYTES 7.4 % (2-11); NEUTROPHILS 80.1 % (40-80); RBC 4.47 10x6/uL (4.20-6.10); RDW 17.3 % (11.5-14.5); WBC 5.2 10x3/uL (4.8-10.8)
[2018-12-25 14:56] LABS: PLATELET COUNT 257 10x3/uL (130-400)
[2018-12-25 16:18] LABS: ALBUMIN 3.2 g/dL (3.4-5.0); ANION GAP 17.3 mmol/L (8-16); BILIRUBIN - TOTAL 0.27 mg/dL (0.2-1.3); CALCIUM 9.2 mg/dL (8.5-10.1); CARBON DIOXIDE 19.7 mmol/L (21.0-32.0); CREATININE - SERUM 5.9 mg/dL (0.6-1.3); PROTEIN - SERUM 7.9 g/dL (6.4-8.2)
--- NOTE | 2018-12-25 16:28 | NUR ---
LAB CALLED WITH CL LEVEL OF 122. RAILROAD DINING CAR STEWARD/STEWARDESS NOTIFIED, NO NEW ORDERS NOTED.
--- NOTE | 2018-12-25 18:58 | PN ---
PATIENT:RUSSELL SCHULZ MEDICAL RECORD: [id number] LOCATION:[facility] ADMISSION DATE: 12/13/18 PROGRESS NOTE DATE OF SERVICE: 12/24/2018 SUBJECTIVE: The patient's case was discussed with staff. He has no new complaint. OBJECTIVE: The patient is in good behavioral control with limited insight about his condition. He tolerates his medicines well. ASSESSMENT: No change in diagnoses. PLAN: Current medicines and therapies have been reviewed, both will be maintained. Long-term prognosis is guarded and I anticipate he can be transitioned out of the hospital soon. TRANSINT:[id number] Voice Confirmation ID: [id number] DOCUMENT ID: [id number] RICHARD BOYD MD at 1858 CC: [id number] DICTATION DATE: 12/24/18 1038 PIPE PRODUCTION WORKER: 12/24/18 1304 ADM IN [facility] [address] [place] [address]
[2018-12-25 21:10] VITALS: BP 140/70
--- NOTE | 2018-12-25 21:52 | NUR ---
PATIENT LYING IN BED, EYES CLOSED, OPENS EYS WHEN HEARS STAFF'S VOICE, CRUSHED MEDS AND GAVE WITH PUDDING, TOOK AWHILE TO GIVE MEDS. CAN NOT VOICE NEEDS OR WANTS, DEPENDENT UPON STAFF FOR ALL NEEDS. WILL FOLLOW POC
--- NOTE | 2018-12-26 08:14 | NUR ---
PATIENT LAYING IN BED WITH EYES OPEN. RESP EVEN AND NONLABORED. NO ACUTE DISTRESS NOTED. ORIENTED TO SELF ONLY. CONFUSION NOTED. NURSE ASSISTED TO PUT LEG BACK ON BED PT STATED "WHOA WHOA" TOTAL ASSIST WITH ADL'S. X3 ASSIST WITH ADLS THIS A.M. CHAIR ALARM IN PLACE AND ACTIVE. WILL CONT PLAN OF CARE.
[2018-12-26 09:41] VITALS: BP 111/48
--- NOTE | 2018-12-26 10:10 | NUR ---
PATIENT WOULD NOT WAKE UP TO EAT BREAKFAST. PT IS DROWSY. NURSE HELD A.M. DUE TO BEING DROWSY. WILL REPORT TO DOCTOR.
--- NOTE | 2018-12-26 10:50 | NUR ---
NUTRITION F/U PT RECEIVING MEGACE AND NEPRO. MECH SOFT DIET. NO HD AT THIS TIME. REQUIRING SYRINGE FEEDING BY STAFF. NOTE HOSPICE CONSULTED. RD FOLLOWING
--- NOTE | 2018-12-26 13:52 | PN ---
PATIENT:RUSSELL SCHULZ MEDICAL RECORD: [id number] LOCATION:[facility]AN Fleming ADMISSION DATE: 12/13/18 PROGRESS NOTE DATE OF SERVICE: 12/25/2018 SUBJECTIVE: The patient's case was discussed with staff. He has no new complaint. OBJECTIVE: The patient is in good behavioral control with limited insight about his condition. He tolerates his medicines well. ASSESSMENT: No change in diagnoses. PLAN: Current medicines have been reviewed and will be maintained. There was some concern about the patient possibly being a little over sedated, but I am not seeing that at this point. This may be happening some during the day, so I am going to reduce the dose of Klonopin by half and will also discontinue his trazodone. TRANSINT:[id number] Voice Confirmation ID: [id number] DOCUMENT ID: [id number] RICHARD BOYD MD at 1352 CC: [id number] DICTATION DATE: 12/25/182005 AOC OPERATIONS INTELLIGENCE CHIEF: 12/26/18 0037 ADM IN [place] [id number] [place] [id number]
--- NOTE | 2018-12-26 19:20 | NUR ---
REC'D SITTING IN THE DAYROOM. LOOKING DOWN, NO EYE CONTACT WITH STAFF WHEN TALKING WITH HIM. NO VERBAL RESPONSE. ADMINISTER MEDS AND MONITOR COMPLIANCE. ATTEMPT TO ENGAGE PATIENT IN CONVERSATION Q SHIFT. MED COMPLIANT. CONTINUES TO JUST STARE DOWN AND NOT ACKNOWLEGE STAFF TALKING WITH HIM. CONTINUE POC AND PROVIDE SAFE ENVIRONMENT.
[2018-12-26 20:05] VITALS: BP 125/56
--- NOTE | 2018-12-27 08:02 | NUR ---
B) The patient has poor insight into his situation, he knows his name, but he mumbles only, he is not speaking full sentences this am. He is not aggressive this am. I) Provide prescribed meds. R) The patient is compliant with meds. P) Continue POC.
[2018-12-27 09:31] VITALS: BP 111/57
--- NOTE | 2018-12-27 15:52 | PN ---
PATIENT:RUSSELL SCHULZ MEDICAL RECORD: [id number] LOCATION:MARIA LUISALoi Lackey[facility] ADMISSION DATE: 12/13/18 PROGRESS NOTE DATE OF SERVICE: 12/26/2018 SUBJECTIVE: The patient's case was discussed with staff. He has no new complaint. OBJECTIVE: The patient is in good behavioral control with limited insight about his condition. He is somewhat sedated. ASSESSMENT: No change in diagnoses. PLAN: Current medicines have been reviewed. I am going to discontinue the Klonopin and Geodon, but do anticipate having to restart them prior to discharge at a lower dose. TRANSINT:[id number] Voice Confirmation ID: [id number] DOCUMENT ID: [id number] RICHARD BOYD MD at 1552 CC: [id number] DICTATION DATE: 12/26/18 1542 ORACLE PROGRAMMER: 12/26/18 1602 ADM IN [place] [id number] [place] [id number]
[2018-12-27 20:58] VITALS: BP 104/86
--- NOTE | 2018-12-28 01:19 | NUR ---
B) Patient is alert and oriented to self, very confused , nonambulatory I) Administered scheduled medications as ordered,monitored for safety, R) medication compliant, calm and cooperative this shift, P) Continue plan of care.
[2018-12-28 09:19] VITALS: BP 120/62
--- NOTE | 2018-12-28 10:53 | NUR ---
RECEIVED PT IN DINING ROOM FOR B'FAST, ALERT, CALM, CONFUSED, UNABLE TO MAKE NEEDS KNOWN. APPETITE GOOD, REQUIRES ASSISTANCE WITH MEALS. MEDS ADMIN PER ORDERS WITH COMPLETE MED COMPLIANCE NOTED. DIFFICULTY WITH DIRECTION AND COMPREHENSION. CONT POC DIRECTED.
--- NOTE | 2018-12-28 12:02 | PN ---
PATIENT:RUSSELL SCHULZ MEDICAL RECORD: [id number] LOCATION:[facility]AN Fleming ADMISSION DATE: 12/13/18 PROGRESS NOTE DATE OF SERVICE: 12/27/2018 SUBJECTIVE: The patient's case was discussed with staff. He has no new complaint. OBJECTIVE: The patient is in good behavioral control with limited insight about his condition. He is tolerating his medicines well. ASSESSMENT: No change in diagnoses. PLAN: Brief supportive and educational interventions were made. The patient's prognosis is unfortunately quite poor. I do not think he is appropriate for hospice. I do not think he is currently a direct danger to himself or others. TRANSINT:[id number] Voice Confirmation ID: [id number] DOCUMENT ID: [id number] RICHARD BOYD MD at 1202 CC: [id number] DICTATION DATE: 12/27/18 165 ENRICHMENT SPECIALIST: 12/27/182055 ADM IN [place] [id number] [place] [id number]
[2018-12-28 20:00] VITALS: BP 127/61
--- NOTE | 2018-12-29 01:21 | NUR ---
B.) PT IS ORIENTED TO SELF ONLY. PT IS UNABLE TO AMBULATE AND IS CHAIRFAST. HE MAKES INAUDIBLE SOUNDS WHEN ATTEMPTING TO SPEAK. I.) PROVIDED PM MEDICATIONS. ASSIST WITH ADL'S. R.) COMPLIANT WITH MEDICATIONS. TOLERATED ADL'S WELL P.) CONTINUE PLAN OF CARE
[2018-12-29 07:00] VITALS: BP 117/49
--- NOTE | 2018-12-29 14:08 | NUR ---
RECEIVED PT. IN DINING ROOM FOR B'FAST, DROWSY, CALM, NO BEHAVIORAL ISSUES NOTED. MEDS CRUSHED AND MIXED WITH CHOCOLATE PUDDING. PATIENT SPIT MEDS OUT OF MOUTH. CONT POC DIRECTED.
--- NOTE | 2018-12-29 17:17 | NUR ---
FAMILY HERE FOR VISITATION.
[2018-12-29 20:00] VITALS: BP 102/69
--- NOTE | 2018-12-29 20:51 | NUR ---
B.) PT IS ORIENTED TO SELF ONLY. HE IS RECIEVED IN JOVANI-CHAIR. PT IS MAKING ONLY INAUDIBLE SOUNDS. HE HAS A FLAT AFFECT. I.) PROVIDED PM MEDICATIONS. R.) COMPLIANT WITH ALL MEDICATIONS. P.) CONTINUE PLAN OF CARE
[2018-12-30 07:00] VITALS: BP 113/62
--- NOTE | 2018-12-30 10:16 | NUR ---
RECEIVED PT IN DINING ROOM FOR B'FAST. REFUSED MEAL. MEDS ADMIN PER ORDERS IN CHOCOLATE PUDDING. CALM, QUIET, CONFUSED. CONT POC DIRECTED.
--- NOTE | 2018-12-30 15:51 | PN ---
PATIENT:RUSSELL SCHULZ MEDICAL RECORD: [id number] LOCATION:[facility]AN SousaRoly112 ADMISSION DATE: 12/13/18 PROGRESS NOTE DATE OF SERVICE: 12/28/2018 SUBJECTIVE: The patient's case was discussed with staff. He has no new complaint. OBJECTIVE: The patient denies intent to harm himself or others. He does tolerate his medicines well. He did not eat yesterday, but he is eating better today. Overall, his intake is insufficient with long-term survival and comfort care, and hospice measures are being sought. TRANSINT:[id number] Voice Confirmation ID: [id number] DOCUMENT ID: [id number] RICHARD BOYD MD at 1551 CC: [id number] DICTATION DATE: 12/28/18 1245 TUNNEL KILN REPAIRER: 12/28/18 1449 ADM IN [facility] [address] [place] [id number]
--- NOTE | 2018-12-30 15:51 | PN ---
PATIENT:RUSSELL SCHULZ MEDICAL RECORD: [id number] LOCATION:SHAN Fleming ADMISSION DATE: 12/13/18 PROGRESS NOTE DATE OF SERVICE: 12/29/2018 SUBJECTIVE: The patient's case was discussed with staff. He has no new complaint. OBJECTIVE: The patient is in good behavioral control with limited insight about his condition. He is tolerating his medicines reasonably well. ASSESSMENT: No change in diagnoses. PLAN: Hopefully, the patient can be transitioned out of the hospital soon. His long-term prognosis is guarded. TRANSINT:[id number] Voice Confirmation ID: [id number] DOCUMENT ID: [id number] RICHARD BOYD MD at 1551 CC: [id number] DICTATION DATE: 12/29/18 09 CHILDREN'S TUTOR: 12/29/18 1505 ADM IN [facility] [address] [place] [address]
[2018-12-30 20:21] LABS: BASOPHILS 0.2 % (0-2); EOSINOPHILS 0.6 % (0-7); HEMATOCRIT 40.1 % (42.0-54.0); HEMOGLOBIN 12.4 g/dL (13.5-17.5); IMMATURE GRANULOCYTES 0.2 % (0-5); MCH 26.3 pg (26.0-34.0); MCHC 30.9 g/dL (31.0-37.0); MEAN PLATELET VOLUME 9.5 fL (7.4-10.4); MONOCYTES 5.6 % (2-11); NEUTROPHILS 80.4 % (40-80); RBC 4.72 10x6/uL (4.20-6.10); RDW 17.6 % (11.5-14.5); WBC 6.3 10x3/uL (4.8-10.8)
[2018-12-30 20:22] LABS: PLATELET COUNT 187 10x3/uL (130-400)
[2018-12-30 20:33] LABS: CALCIUM 8.9 mg/dL (8.5-10.1); CARBON DIOXIDE 18.8 mmol/L (21.0-32.0); CREATININE - SERUM 7.7 mg/dL (0.6-1.3)
[2018-12-30 20:39] LABS: POTASSIUM - SERUM 6.8 mmol/L (3.5-5.1)
--- NOTE | 2018-12-31 02:29 | NUR ---
PT SITTING IN DAYROOM. NO EYE CONTACT. DOES NOT ACKNOWLEDGE STAFF WHEN APPROACHED. ADMINISTER MEDS PER ORDERS Q SHIFT AND MONITOR COMPLIANCE. ATTEMPT TO INVOLVE PATIENT IN CONVERSATION. MED COMPLIANT. NO VERBAL INTERACTION. NO EYE CONTACT. CONTINUE POC AND PROVIDE SAFE ENVIRONMENT.
[2018-12-31 10:37] VITALS: BP 98/47
--- NOTE | 2018-12-31 11:00 | NUR ---
ALERT AND ORIENTED TO SELF ONLY. SITTS IN RECLINE AND IS COMPLIANT WITH TAKING MEDS, BUT REFUSES TO EAT OR DRINK ANY FLUIDS. REDIRECRT AND REORIENT NEEDED. WILL CONTINUE POC.
--- NOTE | 2018-12-31 12:36 | PN ---
PATIENT:RUSSELL SCHULZ MEDICAL RECORD: [id number] LOCATION:SHAN SousaRoly112 ADMISSION DATE: 12/13/18 PROGRESS NOTE DATE OF SERVICE: 12/30/2018 SUBJECTIVE: The patient's case was discussed with staff. He has no new complaint. OBJECTIVE: The patient continues to not eat very well or even at all. He is sleeping adequately. He is not over sedated. I viewed this problem with his eating and drinking as characteristic of an advanced end-stage dementia. At this point, I am going to check some baseline labs to ensure that he is not critical, but once again, there is little that needs to be done because he is going to go to hospice and receive comfort care. I anticipate that he can be transitioned out of the hospital soon. TRANSINT:[id number] Voice Confirmation ID: [id number] DOCUMENT ID: [id number] RICHARD BOYD MD at 1236 CC: [id number] DICTATION DATE: 12/30/18 1647 LIVESTOCK TRADER: 12/30/18 1835 ADM IN [facility] [address] [place] [address]
[2018-12-31] MEDS ORDERED: Megace ES [CHEMO] PO (13:05)
[2018-12-31] MEDS ORDERED: PROTONIX FOR OR40 MG PO (13:05)
[2018-12-31] MEDS ORDERED: Senokot TAB PO (13:05)
[2018-12-31 20:48] VITALS: BP 110/40
--- NOTE | 2019-01-01 01:51 | NUR ---
B) patient is alert and oriented to self, very confused and unaware, I) Administered scheduled medications crushed, monitored for safety R) Medication compliant, not eating P) Continue plan of care.
[2019-01-01 09:00] VITALS: BP 137/64
--- NOTE | 2019-01-01 09:30 | NUR ---
PATIENT AWAKE AND ORIENTED TO PERSON ONLY. CALM AND COOPERATIVE WITH CARE AND ASSESSMENT. MEDICATION COMPLIANT CRUSHED IN PUDDING. FALL PRECAUTIONS IN PLACE. WILL CONTINUE PLAN OF CARE.
--- NOTE | 2019-01-01 09:44 | NUR ---
[facility] SPOKE WITH PT ON SEVERAL OCCASSIONS. [facility] EXPLAINED [facility] IS NOT GOING TO ACCEPT PT BACK INTO THEIR CARE. DUE TO PT'S PAST BEHAVIORS PT WILL HAVE TO GO TO A BEHAVIORAL CARE HOME. PT'S STATED SHE CANNOT AFFORD THE AMOUNT [facility] WAS TRYING TO CHARGE HER. SHE STATED SHE WOULD HAVE TO TAKE PT HOME IF THIS DIDN'T WORK OUT. [facility] EDUCATED ON IN HOME CARE AND HOSPICE DUTIES. [facility] STATED SHE DID A REFERRAL TO [facility]. PT'S , [place], STATED SHE WOULD SEE IF SHE CAN AFFORD IT.
--- NOTE | 2019-01-01 15:30 | PN ---
PATIENT:RUSSELL SCHULZ MEDICAL RECORD: [id number] LOCATION:SHAN SousaRolyKen ADMISSION DATE: 12/13/18 PROGRESS NOTE DATE OF SERVICE: 12/31/2018 SUBJECTIVE: The patient's case was discussed with staff. He has no new complaint. OBJECTIVE: The patient is in good behavioral control with poor insight about his condition. He does tolerate his medicines well. ASSESSMENT: No change in diagnoses. PLAN: Brief supportive and educational interventions were made. Long-term prognosis is guarded. I anticipate he can be transitioned out of the hospital soon. TRANSINT:[id number] Voice Confirmation ID: [id number] DOCUMENT ID: [id number] RICHARD BOYD MD at 1530 CC: [id number] DICTATION DATE: 12/31/18 1303 DUMP GROUNDS CHECKER: 12/31/18 1315 ADM IN [facility] [address] [place] [address]
[2019-01-01 19:42] VITALS: BP 98/54
--- NOTE | 2019-01-01 21:52 | NUR ---
B.) PT IS HARD TO AROUSE WITH VERBAL STIMULATION. HE IS SITTING IN JOVANI-CHAIR AND IS QUIET. I.) PROVIDED PM MEDICATION. R.) COMPLIANT WITH MEDICATION. P.) CONTINUE PLAN OF CARE
--- NOTE | 2019-01-02 07:10 | NUR ---
PATIENT AWAKE WITH EYES OPEN.RESP EVEN AND NONLABORED. NO ACUTE DISTRESS NOTED. PT IS ALERT TO SELF ONLY AND CONFUSED. SENIOR PRODUCTION MANAGER REPORTED THAT PATIENT DID TAKE MEDS AND IS NOT EATING WELL. MAX ASSIST WITH ADLS. SHOWER PROVIDED IN AM REPORTED BY SENIOR PRODUCTION MANAGER. CHAIR ALARM IN PLACE AND ACTIVE. WILL CONT PLAN OF CARE.
--- NOTE | 2019-01-02 08:27 | NUR ---
PATIENT CALLED FOR AN UPDATE. PASSCODE GIVEN. NURSE REPORTED WHAT HAD BEEN GIVEN IN REPORT. TOLD PATIENT HAD JUST WENT DOWN FOR BREAKFAST ONLY MINUTES BEFORE. STATED SHE WOULD BE COMING TO VISITATION THIS SHIFT.
[2019-01-02 08:32] VITALS: BP 124/52
--- NOTE | 2019-01-02 10:52 | NUR ---
NUTRITION F/U PT WT STABLE FROM LAST WEEK. REMAINS ON MEGACE. WILL CONTINUE TO PROVIDE REG MECH SOFT DIET, MONITOR WT. RD FOLLOWING
--- NOTE | 2019-01-02 13:34 | PN ---
PATIENT:RUSSELL SCHULZ MEDICAL RECORD: [id number] LOCATION:SHAN Lackey112 ADMISSION DATE: 12/13/18 PROGRESS NOTE DATE OF SERVICE: 01/01/2019 SUBJECTIVE: The patient's case was discussed with staff. He has no new complaint. OBJECTIVE: The patient is not eating or drinking. His prognosis is exceedingly poor. He requires hospice. ASSESSMENT: Dementia. PLAN: The patient needs to be discharged soon. There is no psychiatric reason for him to be here and his prognosis is very poor and he needs to be in an environment where his family can be with him. There are social factors complicating this, but efforts are being made to accomplish this goal. TRANSINT:[id number] Voice Confirmation ID: [id number] DOCUMENT ID: [id number] RICHARD BODY MD at 1334 CC: [id number] DICTATION DATE: 01/01/19 1649 NOC TECHNICIAN: 01/02/19 0024 ADM IN [facility] [address] [place] [address]
--- NOTE | 2019-01-02 18:17 | NUR ---
THIS SHIFT NURSE SPOKE WITH IN REGARDS TO CODE STATUS. PATIENT IS A FULL CODE AND PATIENT IS NOW A DNR. PAPERWORK IS ON THE CHART.
[2019-01-02 20:20] VITALS: BP 110/53
--- NOTE | 2019-01-03 02:38 | NUR ---
B.) PT IS ASLEEP WITH EYES CLOSED. HE IS DIFFICULT TO AROUSE WITH VERBAL STIMULATION. PT IS NOT SWALLOWING WELL. NO RESPIRATORY DISTRESS NOTED. I.) PROVIDE PM MEDICATIONS. R.) COMPLIANT WITH MEDICATIONS. GIVEN WITH SYRINGE IN VERY SMALL AMOUNTS AT A TIME. P.) CONTINUE PLAN OF CARE
--- NOTE | 2019-01-03 08:00 | NUR ---
REC'D PATIENT SITTING IN CHAIR WITH EYES OPEN. RESP EVEN AND NONLABORED. NO ACUTE DISTRESS NOTED. PT IS CONFUSED. ALERT TO SELF ONLY. PT SET TO DISCHARGE TO [facility] WITH [facility]. REPORT GIVEN TO [facility] NURSE LIZETTE 2927. AND [facility] NOTIFIED ABOUT PATIENT DISCHARGE. CHAIR ALARM IN PLACE AND ACTIVE.
[2019-01-03 09:36] VITALS: BP 137/68
--- NOTE | 2019-01-03 11:15 | NUR ---
PATIENT LEFT UNIT TO [facility] VIA EMS SERVICES. PAPERWORK FAXED TO [facility] AND [facility]. PATIENT STABLE. X3 STAFF MEMBERS TO TRANSFER PATIENT.
--- NOTE | 2019-01-15 15:47 | PN ---
PATIENT:RUSSELL SCHULZ MEDICAL RECORD: [id number] LOCATION:[facility] ADMISSION DATE: 12/13/18 PROGRESS NOTE DATE OF SERVICE: 01/02/2019 SUBJECTIVE: The patient's case was discussed with staff. He has no new complaint. OBJECTIVE: The patient is minimally arousable and only oriented to person. He is not eating or drinking adequately. ASSESSMENT: Dementia. PLAN: As discussed previously, the patient's prognosis is exceedingly poor. He has an advanced dementia. He needs comfort care measures and needs to be with his family or be in a setting where his family can be with him as much as possible. All of this is understood by the treatment team and every reasonable effort is being made to help with that goal. The patient does not need to be in a psychiatric hospital. He does need to be in an environment where he can be made comfortable and be with his family and his family could be with him. TRANSINT:[id number] Voice Confirmation ID: [id number] DOCUMENT ID: [id number] RICHARD BOYD MD at 1547 CC: [id number] DICTATION DATE: 01/02/19 1434 FEED MANAGEMENT ADVISOR: 01/02/191925 DIS IN 01/03/19 [facility] [address] [place] [address]
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
== END 2019-01-03 11:00 | disposition hospice, inpatient (51) | DRG 57 ==
LOC: D.PSYCH 14:19
PROVIDERS: Family Medicine; ADMIT Psychiatry & Neurology Psychiatry; ATTEND Psychiatry & Neurology Psychiatry
DX: G30.1 Alzheimer's disease with late onset (principal); F02.81 Dementia in other diseases classified elsewhere, unspecified severity, with behavioral disturbance; I12.0 Hypertensive chronic kidney disease with stage 5 chronic kidney disease or end stage renal disease; N18.5 Chronic kidney disease, stage 5; E78.5 Hyperlipidemia, unspecified; K59.00 Constipation, unspecified; H40.9 Unspecified glaucoma; D63.1 Anemia in chronic kidney disease; R26.9 Unspecified abnormalities of gait and mobility; K21.9 Gastro-esophageal reflux disease without esophagitis; F32.9 Major depressive disorder, single episode, unspecified; R63.0 Anorexia; R53.83 Other fatigue